=== PATIENT | female | born 1955 | race Caucasian/White ===

== ENCOUNTER → 2018-12-13 | Outpatient (CLI) | payer MEDICARE ==
--- NOTE | 2018-12-13 12:34 | PN ---
PROGRESS NOTE A 63-year-old female patient coming in for a compliancy check regarding obstructive sleep apnea. The patient presented with weight gain and hypersomnolence and sleepiness. The sleep study was conducted and the patient was found to have a mild JARVIS with an AHI of 9. She had excessive periodic limb movements, yet her arousal index along with a periodic limb movement was low. The patient was feeling sleepy and tired and for that reason, she underwent a CPAP titration and she was started on a CPAP pressure of 9 cm of water. Note that the overall sleeps efficiency remained unchanged while on CPAP therapy in order of 73%. At the same time, the patient was able to have all sleep stages including REM and delta wave sleep. During the titration, the patient encountered excessive periodic limb movements and increases arousal index. On today's evaluation, the patient reports at the clinic that she is not benefitting from the treatment. She has tried to become compliant with the CPAP unit over the past 3 months. Nevertheless she was not able to see the benefit that she was expecting. I looked at the compliance data. While on the CPAP unit, the patient has elevated obstructive sleep apnea. Her AHI is dropped down to 1. Nevertheless, even on those days, the patient has not seen any major improvement in her sleep quality nor she has any in improvement in her daytime symptoms. She claims that the treatment itself has not been effective for her. Note that she has some limited symptoms of restless legs syndrome. She has been taking Celexa 20 mg in the morning for history of chronic depression. She is known to have COPD and she was treated for an exacerbation recently through our office. Over the years she has required steroids for systemic for a COPD exacerbation and based on that, she has gained significant amount of weight in the order of 40 pounds. REVIEW OF SYSTEMS: A 12-point review of system was done. Positive findings are all mentioned above in the history of present illness. PHYSICAL EXAMINATION: BP is 150/73, pulse 93, respirations 16, temperature 98.9, weight is 262. An Ishpeming score of 8, saturation 94% on room air. GENERAL APPEARANCE: Obese, calm, comfortable. HEAD: Atraumatic, normocephalic. NECK: Supple. Mallampati class IV. There is no goiter or neck masses. LUNGS: Clear to auscultation. HEART: Sounds regular rate and rhythm. Normal S1, S2. No murmurs. ABDOMEN: Soft, nontender. No organomegaly. EXTREMITIES: No edema. No cyanosis or clubbing. IMPRESSION: 1. There is obstructive sleep apnea with an apnea-hypopnea index of 9.1. The patient was treated with CPAP with a pressure of 9. Despite her treatment, she has not seen any major clinical improvement in her daytime symptoms nor in her sleep quality. 2. Excessive periodic limb movements. Would sleep fragmentation based on the CPAP titration study with a PLMS index of 42. 3. Diminished sleep efficiency of 73%. 4. Delayed sleep onset. 5. Obesity, BMI of 36. 6. Chronic obstructive pulmonary disease. 7. Depression on Celexa. PLAN: Obviously, the patient has mild obstructive sleep apnea and the CPAP treatment failed to give her any major symptomatic benefit in terms of her daytime symptoms and failed also to improve her sleep quality in general. Will encourage to afford this patient to lose weight and will discontinue the CPAP therapy for now. Meanwhile, I think it is worthwhile to treat this patient with Requip 1 mg at bedtime to improve her periodic limb movements. It is possible that the treating the periodic limb movements may drop her sleep fragmentation and make this patient much more alert and awake during the day. This will be given a trial basis and tried on 30 days of Requip will be given a dose of 1 mg at bedtime. She can still take her Celexa. Avoid caffeinated beverages late at night time. Sleep hygiene measures need to be implemented. Will continue to follow. RAFAL / GODWINN: [id number] /
== END | disposition home or self-care (01) ==
LOC: SLEEP 11:05
PROVIDERS: ATTEND Internal Medicine Critical Care Medicine
DX: G47.33 Obstructive sleep apnea (adult) (pediatric) (principal); G47.61 Periodic limb movement disorder; G25.81 Restless legs syndrome; F32.9 Major depressive disorder, single episode, unspecified; E66.9 Obesity, unspecified; J44.9 Chronic obstructive pulmonary disease, unspecified; Z68.36 Body mass index [BMI] 36.0-36.9, adult; Z99.89 Dependence on other enabling machines and devices; Z79.899 Other long term (current) drug therapy

== ENCOUNTER 2023-03-10 21:50 | Observation (INO) | payer MEDICARE ==
[2023-03-10] MEDS ORDERED: DEXAMETHASONE SOD PHOSPHATE 10 MG/ML 1 ML VIAL IVP STA (22:02)
[2023-03-10] MEDS ORDERED: ALBUTEROL NEBULIZED 2.5 MG/3 ML INHALATION STA (22:02)
[2023-03-10] MEDS ORDERED: IPRATROPIUM 0.5 MG/2.5 ML NEBU INHALATION STA (22:02)
[2023-03-10 22:10] LABS: Basophils % (A) 0 %; Eosinophils # (A) 0.3 k/uL (0-0.7); Eosinophils % (A) 2 %; HCT 43.3 % (34.0-46.0); HGB 13.8 gm/dL (11.4-16.0); Hypochromasia Slight; Lymphocytes # (A) 1.5 k/uL (1.0-4.8); Lymphocytes % (A) 10 %; MCH 26.7 pg (25.0-35.0); MCHC 31.8 g/dL (31.0-37.0); MCV 83.9 fL (80.0-100.0); Mean Platelet Volume 6.9; Monocytes # (A) 0.5 k/uL (0-1.0); Monocytes % (A) 4 %; Neutrophils % (A) 83 %; Platelet Count 326 k/uL (150-450); RBC 5.16 m/uL (3.80-5.40); RDW 14.8 % (11.5-15.5); WBC 14.4 k/uL (3.8-10.6)
[2023-03-10] MEDS: MAGNESIUM SULFATE-D5W PMX 1 GM in DEXTROSE/WATER 1 100ML.BAG IVPB SCH ×2 (22:10→23:20)
[2023-03-10 22:22] LABS: ALT 22 U/L (4-34); AST 20 U/L (14-36); African American GFR (CKD) >90 (>60 ml/min/1.73 sqM); Albumin 3.8 g/dL (3.5-5.0); Alkaline Phosphatase 163 U/L (38-126); Anion Gap 7 mmol/L; Blood Urea Nitrogen 17 mg/dL (7-17); Calcium 9.2 mg/dL (8.4-10.2); Carbon Dioxide 37 mmol/L (22-30); Chloride 94 mmol/L (98-107); Glucose 114 mg/dL (74-99); Lipase 76 U/L (23-300); Magnesium 1.5 mg/dL (1.6-2.3); Non-African American GFR(CKD) >90 (>60 ml/min/1.73 sqM); Potassium 3.4 mmol/L (3.5-5.1); Sodium 138 mmol/L (137-145); Total Bilirubin 0.4 mg/dL (0.2-1.3); Total Protein 6.3 g/dL (6.3-8.2)
--- NOTE | 2023-03-11 00:04 | XR ---
EXAMINATION TYPE: XR chest 1V portable DATE OF EXAM: 03/10/2023 11:47 PM COMPARISON: Chest radiographs from 09/22/2021 TECHNIQUE: XR chest 1V portable Portable AP radiograph of the chest. CLINICAL INDICATION:Female, 67 years old with history of CP; FINDINGS: Lungs/Pleura: There is no evidence of pleural effusion, focal consolidation, or pneumothorax. Pulmonary vascularity: Unremarkable. Heart/mediastinum: Cardiomediastinal silhouette is unremarkable. Musculoskeletal: No acute osseous pathology. IMPRESSION: No acute cardiopulmonary disease/process.
[2023-03-11] MEDS ORDERED: NALOXONE 0.4 MG/ML 1 ML VIAL IV PRN (01:46)
[2023-03-11] MEDS ORDERED: IPRATROPIUM-ALBUTEROL 3 ML NEB INHALATION PRN (01:47)
--- NOTE | 2023-03-11 01:56 | ED ---
General Adult HPI - General Chief complaint: Shortness of Breath Stated complaint: SOB Time Seen by Provider: 03/10/23 21:52 Source: patient, EMS Mode of arrival: EMS Limitations: no limitations - History of Present Illness Initial comments: This is a 67-year-old female with a past medical history including COPD, hypertension and diabetes presents emergency department via EMS. The patient reported that her shortness of breath is increased and worsened over the last several hours consistent with her previous COPD exacerbations. The patient did state that changes in weather and humidity and heat increase her COPD and worsening. The patient did state that she rarely goes outside because of this. The patient did state that she is on 2 L of nasal cannula at home but stated she needed more oxygen tonight. The patient was given a DuoNeb by EMS on arrival and stated that this did help her symptoms but was still having shortness of breath my evaluation. The patient denied any fevers, chills as well as any nausea and vomiting. - Related Data Home Medications Medication Instructions Recorded Confirmed Albuterol Sulfate [Ventolin HFA] 2 puff INHALATION RT-Q6H PRN 04/02/14 09/28/16 LORazepam [Ativan] 0.5 mg PO TID PRN 04/02/14 09/28/16 Mometasone/Formoterol [Dulera 200 2 puff INHALATION RT-BID 04/02/14 09/28/16 Mcg-5 Mcg Inhaler] Omeprazole [PriLOSEC] 20 mg PO BID 04/02/14 09/28/16 Ibuprofen [Motrin] 800 mg PO BID PRN 09/27/16 09/28/16 Vitamin B Complex 1 cap PO DAILY 09/27/16 09/27/16 Previous Rx's Medication Instructions Recorded Albuterol Inhaler [Ventolin Hfa 2 puff INHALATION RT-QID PRN #0 10/01/16 Inhaler] puff Citalopram Hydrobromide [CeleXA] 20 mg PO DAILY #30 tab 10/01/16 Ibuprofen [Motrin] 800 mg PO BID tab 10/01/16 LORazepam [Ativan] 1 mg PO TID PRN #30 tab 10/01/16 Nicotine 14Mg/24Hr Patch [Habitrol] 1 patch TRANSDERM DAILY #30 patch 10/01/16 Pantoprazole [Protonix] 40 mg PO AC-BID tablet. 10/01/16 traMADol HCl [Ultram] 50 mg PO BID PRN #0 tab 10/01/16 traZODone HCL [Desyrel] 50 mg PO HS #30 tab 10/01/16 Allergies Allergy/AdvReac Type Severity Reaction Status Date / Time No Known Allergies Allergy Verified 09/28/16 00:20 Review of Systems ROS Statement: Those systems with pertinent positive or pertinent negative responses have been documented in the HPI. ROS Other: All systems not noted in ROS Statement are negative. Past Medical History Past Medical History: Heart Failure, COPD, GERD/Reflux, Hypertension, Osteoarthritis (OA), Pulmonary Embolus (PE) Additional Past Medical History / Comment(s): just finished antibiotic for rece nt UTI History of Any Multi-Drug Resistant Organisms: None Reported Past Surgical History: Cholecystectomy, Joint Replacement Past Anesthesia/Blood Transfusion Reactions: No Reported Reaction Past Psychological History: Anxiety Smoking Status: Current some day smoker Past Alcohol Use History: Rare Past Drug Use History: None Reported General Exam Limitations: no limitations General appearance: alert, in no apparent distress, obese Head exam: Present: atraumatic, normocephalic, normal inspection Eye exam: Present: normal appearance, PERRL Pupils: Present: normal accommodation ENT exam: Present: normal exam, normal oropharynx, mucous membranes moist Neck exam: Present: normal inspection, full ROM Respiratory exam: Present: wheezes (Expiratory wheezes heard in the bilateral lung coronado.). Absent: normal lung sounds bilaterally, respiratory distress Cardiovascular Exam: Present: normal rhythm, tachycardia GI/Abdominal exam: Present: soft, normal bowel sounds Extremities exam: Present: normal inspection, full ROM Back exam: Present: normal inspection, full ROM Neurological exam: Present: alert, oriented X3, CN II-XII intact Psychiatric exam: Present: normal affect, normal mood Skin exam: Present: warm, dry Course Vital Signs 03/10/23 03/10/23 03/10/23 21:53 22:02 22:35 Temperature 98.2 F Pulse Rate 114 H 100 Respiratory 30 H Rate Blood Pressure 120/78 O2 Sat by Pulse 94 L 95 Oximetry 03/10/23 03/10/23 03/10/23 22:55 23:15 23:30 Temperature Pulse Rate 108 H 111 H 114 H Respiratory Rate Blood Pressure O2 Sat by Pulse Oximetry 03/11/23 00:00 Temperature Pulse Rate 120 H Respiratory 18 Rate Blood Pressure 114/78 O2 Sat by Pulse 95 Oximetry EKG Findings - EKG Comments: EKG Findings:: An EKG was obtained and was interpreted by myself showing a rate of 113, SC interval 104, QRS duration of 81 and QTC of 379. This EKG showed a sinus tachycardia with no ST segment elevation or depression noted. There was noted pattern consistent with pulmonary disease. Medical Decision Making - Medical Decision Making Was pt. sent in by a medical professional or institution (, [facility], [facility], urgent care, hospital, or senior living...) When possible be specific @ -No Did you speak to anyone other than the patient for history (EMS, parent, family, police, friend...)? What history was obtained from this source @ -No Did you review nursing and triage notes (agree or disagree)? Why? @ -I reviewed and agree with nursing and triage notes Were old charts reviewed (outside hosp., previous admission, EMS record, old EKG, old radiological studies, urgent care reports/EKG's, senior living records)? Report findings @ -No old charts were reviewed Differential Diagnosis (chest pain, altered mental status, abdominal pain women, abdominal pain men, vaginal bleeding, weakness, fever, dyspnea, syncope, headache, dizziness, GI bleed, back pain, seizure, CVA, palpatations, mental health)? @ -COPD exacerbation, pneumonia, ACS EKG interpreted by me (3pts min.). @ -As above X-rays interpreted by me (1pt min.). @ -Chest x-ray was obtained and was interpreted by myself showing no acute process. CT interpreted by me (1pt min.). @ -None done U/S interpreted by me (1pt. min.). @ -None done What testing was considered but not performed or refused? (CT, X-rays, U/S, labs)? Why? @ -None What meds were considered but not given or refused? Why? @ -None Did you discuss the management of the patient with other professionals (professionals i.e. [facility] Uriostegui, [facility], lab, RT, psych nurse, social media campaign manager, division leader, teacher, plain clothes police officer, counter caser)? Give summary @ -Yes, patient's primary care physician was contacted regarding admission Was smoking cessation discussed for >3mins.? @ -Yes Was critical care preformed (if so, how long)? @ -No Were there social determinants of health that impacted care today? How? (Homelessness, low income, unemployed, alcoholism, drug addiction, transportation, low edu. Level, literacy, decrease access to med. care, long term, rehab)? @ -No Was there de-escalation of care discussed even if they declined (Discuss DNR or withdrawal of care, Hospice)? DNR status @ -No What co-morbidities impacted this encounter? (DM, HTN, Smoking, COPD, CAD, Cancer, CVA, ARF, Chemo, Hep., AIDS, mental health diagnosis, sleep apnea, morbid obesity)? @ -COPD, hypertension, morbid obesity Was patient admitted / discharged? Hospital course, mention meds given and route, prescriptions, significant lab abnormalities, going to OR and other pertinent info. @ -The patient was seen and evaluated in the emergency department. Physical exam, the patient was resting in bed with minimal shortness of breath. The patient did state that the medication given to her by EMS did help her subhash athing. The patient on evaluation was tachycardic however did not have any tachypnea. The patient was on 4 L of nasal cannula oxygen. Due to the COPD exacerbation, and expiratory wheezes heard on auscultation, the patient did receive a breathing treatment of albuterol and ipratropium as well as Decadron and magnesium. On reevaluation, the patient stated that her breathing was improved but she still had wheezing noted. Due to this in the setting of the patient's severe COPD, the patient will be placed observation for continued breathing treatments and observation and management. The patient was agreeable to this and all of her questions were answered. The patient was placed observation in stable condition. Undiagnosed new problem with uncertain prognosis? @ -No Drug Therapy requiring intensive monitoring for toxicity (Heparin, Nitro, Insulin, Cardizem)? @ -No Were any procedures done? @ -No Diagnosis/symptom? @ -COPD exacerbation Acute, or Chronic, or Acute on Chronic? @ -Acute Uncomplicated (without systemic symptoms) or Complicated (systemic symptoms)? @ -Complicated Side effects of treatment? @ -No Exacerbation, Progression, or Severe Exacerbation? @ -Exacerbation Poses a threat to life or bodily function? How? (Chest pain, [place], [place], pneumonia, PE, COPD, DKA, ARF, appy, cholecystitis, CVA, Diverticulitis, Homicidal, Suicidal, threat to staff... and all critical care pts) @ -Yes, continued exacerbation can lead to hypoxia, permanent damage and possible . - Lab Data Result diagrams: 03/10/23 22:01 03/10/23 22:01 Lab Results 03/10/23 03/10/23 03/10/23 Range/Units 22:01 22:01 22:01 WBC 14.4 H (3.8-10.6) k/uL RBC 5.16 (3.80-5.40) m/uL Hgb 13.8 (11.4-16.0) gm/dL Hct 43.3 (34.0-46.0) % MCV 83.9 (80.0-100.0) fL MCH 26.7 (25.0-35.0) pg MCHC 31.8 (31.0-37.0) g/dL RDW 14.8 (11.5-15.5) % Plt Count 326 (150-450) k/uL MPV 6.9 Neutrophils % 83 % Lymphocytes % 10 % Monocytes % 4 % Eosinophils % 2 % Basophils % 0 % Neutrophils # 12.0 H (1.3-7.7) k/uL Lymphocytes # 1.5 (1.0-4.8) k/uL Monocytes # 0.5 (0-1.0) k/uL Eosinophils # 0.3 (0-0.7) k/uL Basophils # 0.0 (0-0.2) k/uL Hypochromasia Slight Sodium 138 (137-145) mmol/L Potassium 3.4 L (3.5-5.1) mmol/L Chloride 94 L (98-107) mmol/L Carbon Dioxide 37 H (22-30) mmol/L Anion Gap 7 mmol/L BUN 17 (7-17) mg/dL Creatinine 0.53 (0.52-1.04) mg/dL Est GFR (CKD-EPI)AfAm >90 (>60 ml/min/1.73 sqM) Est GFR (CKD-EPI)NonAf >90 (>60 ml/min/1.73 sqM) Glucose 114 H (74-99) mg/dL Calcium 9.2 (8.4-10.2) mg/dL Magnesium 1.5 L (1.6-2.3) mg/dL Total Bilirubin 0.4 (0.2-1.3) mg/dL AST 20 (14-36) U/L ALT 22 (4-34) U/L Alkaline Phosphatase 163 H (38-126) U/L Troponin I <0.012 (0.000-0.034) ng/mL NT-Pro-B Natriuret Pep pg/mL Total Protein 6.3 (6.3-8.2) g/dL Albumin 3.8 (3.5-5.0) g/dL Lipase 76 (23-300) U/L 03/10/23 Range/Units 22:01 WBC (3.8-10.6) k/uL RBC (3.80-5.40) m/uL Hgb (11.4-16.0) gm/dL Hct (34.0-46.0) % MCV (80.0-100.0) fL MCH (25.0-35.0) pg MCHC (31.0-37.0) g/dL RDW (11.5-15.5) % Plt Count (150-450) k/uL MPV Neutrophils % % Lymphocytes % % Monocytes % % Eosinophils % % Basophils % % Neutrophils # (1.3-7.7) k/uL Lymphocytes # (1.0-4.8) k/uL Monocytes # (0-1.0) k/uL Eosinophils # (0-0.7) k/uL Basophils # (0-0.2) k/uL Hypochromasia Sodium (137-145) mmol/L Potassium (3.5-5.1) mmol/L Chloride (98-107) mmol/L Carbon Dioxide (22-30) mmol/L Anion Gap mmol/L BUN (7-17) mg/dL Creatinine (0.52-1.04) mg/dL Est GFR (CKD-EPI)AfAm (>60 ml/min/1.73 sqM) Est GFR (CKD-EPI)NonAf (>60 ml/min/1.73 sqM) Glucose (74-99) mg/dL Calcium (8.4-10.2) mg/dL Magnesium (1.6-2.3) mg/dL Total Bilirubin (0.2-1.3) mg/dL AST (14-36) U/L ALT (4-34) U/L Alkaline Phosphatase (38-126) U/L Troponin I (0.000-0.034) ng/mL NT-Pro-B Natriuret Pep 86 pg/mL Total Protein (6.3-8.2) g/dL Albumin (3.5-5.0) g/dL Lipase (23-300) U/L Disposition Clinical Impression: COPD exacerbation Disposition: ADMITTED IP TO THIS HOSP Condition: Stable Is patient prescribed a controlled substance at d/c from ED?: No Referrals: Devante Loja DO [Primary Care Provider] - 1-2 days Time of Disposition: 23:30 Decision to Admit Reason: Admit from EC Decision Date: 03/10/23 Decision Time: 23:30
[2023-03-11] MEDS ORDERED: ALBUTEROL NEBULIZED 2.5 MG/3 ML INHALATION PRN (10:01)
[2023-03-11] MEDS ORDERED: ALBUTEROL HFA INHALER INHALATION PRN (10:01)
[2023-03-11] MEDS ORDERED: predniSONE 5 MG TAB PO SCH (10:15)
[2023-03-11 11:18] LABS: HCT 46.3 % (34.0-46.0); HGB 14.1 gm/dL (11.4-16.0); Hypochromasia Moderate; MCH 26.4 pg (25.0-35.0); MCHC 30.5 g/dL (31.0-37.0); MCV 86.5 fL (80.0-100.0); Mean Platelet Volume 7.1; Platelet Count 384 k/uL (150-450); RBC 5.36 m/uL (3.80-5.40); RDW 14.7 % (11.5-15.5); WBC 15.1 k/uL (3.8-10.6)
[2023-03-11 11:20] LABS: ABG Base Excess 12.5 mmol/L; ABG HCO3 38 mmol/L (21-25); ABG Oxygen Saturation 94.1 % (94-97); ABG PCO2 63 mmHg (35-45); ABG PH 7.39 (7.35-7.45); ABG PO2 69 mmHg (83-108); ABG TCO2 40 mmol/L (19-24); Allen Test Performed? Yes
[2023-03-11] MEDS: PANTOPRAZOLE 40 MG TABLET PO SCH ×2 (11:20→16:48)
[2023-03-11] MEDS: MELOXICAM 7.5 MG TAB PO SCH (11:20)
[2023-03-11] MEDS: FUROSEMIDE 20 MG TAB PO SCH ×2 (11:20→21:11)
[2023-03-11] MEDS: CITALOPRAM HYDROBROMIDE 20 MG TAB PO SCH (11:20)
[2023-03-11] MEDS: APIXABAN 5 MG TAB PO SCH ×2 (11:21→21:11)
[2023-03-11] MEDS: METOPROLOL SUCCINATE (ER) 50 MG TAB.ER.24H PO SCH (11:21)
[2023-03-11] MEDS: methylPREDNISolone SOD SUCCI 40 MG/ML 1 ML VIAL IV SCH ×3 (11:21→23:47)
[2023-03-11] MEDS: IPRATROPIUM-ALBUTEROL 3 ML NEB INHALATION SCH ×3 (11:34→19:56)
[2023-03-11 11:37] LABS: African American GFR (CKD) >90 (>60 ml/min/1.73 sqM); Anion Gap 8 mmol/L; Blood Urea Nitrogen 17 mg/dL (7-17); Calcium 9.3 mg/dL (8.4-10.2); Carbon Dioxide 38 mmol/L (22-30); Chloride 94 mmol/L (98-107); Glucose 127 mg/dL (74-99); Non-African American GFR(CKD) >90 (>60 ml/min/1.73 sqM); Sodium 140 mmol/L (137-145)
[2023-03-11 11:54] LABS: Potassium 4.8 mmol/L (3.5-5.1)
[2023-03-11] MEDS: DOXYCYCLINE 100 MG CAP PO SCH ×2 (11:54→21:11)
[2023-03-11 11:55] LABS: Glucose,Whole Blood 121 mg/dL (70-110)
[2023-03-11] MEDS: INSULIN ASPART (NovoLOG) 100 UNIT/ML VIAL SQ SCH ×3 (11:56→20:40)
[2023-03-11] MEDS ORDERED: IPRATROPIUM 0.5 MG/2.5 ML NEBU INHALATION SCH (12:00)
--- NOTE | 2023-03-11 15:23 | P.CNPUL ---
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 The patient is essentially sedentary. She smokes about 8 to consider some daily basis. She presented to the hospital because of worsening shortness of breath and this has progressed over the past several days. She had increased cough congestion chest tightness and wheezing. She also was becoming more lethargic a some family members. The patient is also known to have severe obstructive sleep apnea with an AHI of 61. She was offered a CPAP machine at a pressure of 10 cm of water. She has a full facemask. She has been able to use the machine and the patient has not been essentially compliant to treatment. Based on worsening shortness of breath, the patient came into the emergency department. The patient placed on 3 L of oxygen by nasal cannula. Started on bronchodilators. Noted the patient uses Trelegy Ellipta and prednisone 5 mg on a daily basis. The white cell count of 15.1 with a hemoglobin of 14.1 and a platelet count of 384. BUN is at 17 with a creatinine of 0.4 and sodium levels of 140. Troponins are negative. ProBNP level is at 86. No chest pain. No pleurisy. No hemoptysis. No increased edema in lower extremities. She is arousable and she is communicating his moldable 4 extremities without any limitation. She has chronic back pain. She has been sedentary. She has a series patient is still her lower back. She also has previous history of pulmonary embolism and the patient remains on anticoagulation with Eliquis 5 mg by mouth twice a day. Review of Systems Constitutional: Reports daytime sleepiness, Reports fatigue, Reports lethargy Eyes: denies as per HPI, denies blurred vision, denies bulging eye, denies decreased vision, denies diplopia, denies discharge, denies dry eye, denies irritation, denies itching, denies pain, denies photophobia, denies loss of peripheral vision, denies loss of vision, denies tunnel vision/blind spots Ears: deny: decreased hearing, ear discharge, earache, tinnitus Ears, nose, mouth and throat: Reports as per HPI Breasts: absent: as per HPI, change in shape, gynecomastia, masses, nipple discharge, pain, skin changes, swelling Cardiovascular: Reports decreased exercise tolerance, Reports dyspnea on exertion Respiratory: Reports congestion, Reports cough, Reports dyspnea, Reports home oxygen (2 liters/min), Reports wheezing Genitourinary: Reports as per HPI Menstruation: Reports as per HPI Musculoskeletal: Reports as per HPI Musculoskeletal: absent: ankle pain, ankle stiffness, ankle swelling Integumentary: Reports as per HPI Neurological: Reports as per HPI, Reports balance difficulties, Reports gait dysfunction Psychiatric: Reports sleep disturbances Endocrine: Reports as per HPI Hematologic/Lymphatic: Reports as per HPI Allergic/Immunologic: Reports as per HPI Past Medical History Past Medical History: Heart Failure, COPD, GERD/Reflux, Hypertension, Osteoarthritis (OA), Pulmonary Embolus (PE), Sleep Apnea/CPAP/BIPAP (AHI of 61 pn CPAP of 10) Additional Past Medical History / Comment(s): just finished antibiotic for recent UTI History of Any Multi-Drug Resistant Organisms: None Reported Past Surgical History: Cholecystectomy, Joint Replacement Additional Past Surgical History / Comment(s): Bilateral knee replacement Past Anesthesia/Blood Transfusion Reactions: No Reported Reaction Past Psychological History: Anxiety Smoking Status: Current every day smoker Past Alcohol Use History: Rare Past Drug Use History: None Reported Medications and Allergies Home Medications Medication Instructions Recorded Confirmed Type Albuterol Sulfate [Ventolin HFA] 2 puff INHALATION RT-Q6H PRN 04/02/14 03/11/23 History Omeprazole [PriLOSEC] 20 mg PO BID 04/02/14 03/11/23 History Albuterol Inhaler [Ventolin Hfa 2 puff INHALATION RT-QID PRN #0 10/01/16 03/11/23 Rx Inhaler] puff Citalopram Hydrobromide [CeleXA] 20 mg PO DAILY #30 tab 10/01/16 03/11/23 Rx Apixaban [Eliquis] 5 mg PO BID 03/11/23 03/11/23 History Celecoxib [CeleBREX] 100 mg PO DAILY 03/11/23 03/11/23 History Cyclobenzaprine [Flexeril] 10 mg PO TID PRN 03/11/23 03/11/23 History Fluticasone/Umeclidin/Vilanter 1 puff INHALATION RT-DAILY 03/11/23 03/11/23 History [Trelegy Ellipta 100-62.5-25] Furosemide [Lasix] 20 mg PO BID 03/11/23 03/11/23 History Metoprolol Succinate (ER) [Toprol 50 mg PO DAILY 03/11/23 03/11/23 History Xl] predniSONE 5 mg PO DAILY 03/11/23 03/11/23 History Allergies Allergy/AdvReac Type Severity Reaction Status Date / Time hydrocodone AdvReac Nightmares Verified 03/11/23 08:15 Physical Exam Vitals: Vital Signs Temp Pulse Pulse Resp BP BP Pulse Ox 03/11/23 08:00 97.9 F 110 H 20 109/55 95 03/11/23 07:59 93 L 03/11/23 06:44 97.9 F 118 H 16 144/89 93 L 03/11/23 02:40 98.3 F 120 H 16 118/80 95 03/11/23 02:00 118 H 26 H 100/61 92 L 03/11/23 00:00 120 H 18 114/78 95 03/10/23 23:30 114 H 03/10/23 23:15 111 H 03/10/23 22:55 108 H 03/10/23 22:35 100 03/10/23 22:02 95 03/10/23 21:53 98.2 F 114 H 30 H 120/78 94 L Intake and Output 03/10/23 03/11/23 03/11/23 22:59 06:59 14:59 Intake Total 240 Balance 240 Intake: Oral 240 Other: Voiding Method Toilet Toilet # Voids 0 Weight 119.295 kg 119.295 kg Morbidly obese, calm and comfortable, body mass index is 41.2, the patient has typical cushingoid features Head exam was generally normal. There was no scleral icterus or corneal arcus. Mucous membranes were moist. Neck was supple and without jugular venous distension, thyromegaly, or carotid bruits. Carotids were easily palpable bilaterally. There was no adenopathy. The patient is a Mallampati class IV with significant crowding of the posterior oropharynx Cardiac exam revealed the PMI to be normally situated and sized. The rhythm was regular and no extrasystoles were noted during several minutes of auscultation. The first and second heart sounds were normal and physiologic splitting of the second heart sound was noted. There were no murmurs, rubs, clicks, or gallops. Lungs sounds are diminished bilaterally and the patient has diffuse extremity wheezes throughout the lung coronado Abdominal exam revealed normal bowel sounds. The abdomen was soft, non-tender, and without masses, organomegaly, or appreciable enlargement of the abdominal aorta. Obese and the patient CANNOT be accurately palpated. Examination of the extremities revealed easily palpable radial, femoral and pedal pulses. There was no cyanosis, clubbing or edema. Examination of the skin revealed no evidence of significant rashes, suspicious appearing nevi or other concerning lesions. Neurologically, the patient is awake and alert and the patient does not have any focal neurological deficit. Cranial nerves are essentially intact. Results - Laboratory Findings CBC and BMP: 03/11/23 10:57 03/11/23 10:57 ABG WBC 14.4 k/uL (3.8-10.6) H 03/10/23 22: RBC 5.16 m/uL (3.80-5.40) 03/10/23 22: Hgb 13.8 gm/dL (11.4-16.0) 03/10/23 22: Hct 43.3 % (34.0-46.0) 03/10/23 22: MCV 83.9 fL (80.0-100.0) 03/10/23 22: MCH 26.7 pg (25.0-35.0) 03/10/23 22: MCHC 31.8 g/dL (31.0-37.0) 03/10/23 22: RDW 14.8 % (11.5-15.5) 03/10/23 22: Plt Count 326 k/uL (150-450) 03/10/23 22:01 MPV 6.9 03/10/23 22:01 Neutrophils % 83 % 03/10/23 22:01 Lymphocytes % 10 % 03/10/23 22:01 Monocytes % 4 % 03/10/23 22:01 Eosinophils % 2 % 03/10/23 22: Basophils % 0 % 03/10/23 22:01 Neutrophils # 12.0 k/uL (1.3-7.7) H 03/10/23 22:01 Lymphocytes # 1.5 k/uL (1.0-4.8) 03/10/23 22: Monocytes # 0.5 k/uL (0-1.0) 03/10/23 22: Eosinophils # 0.3 k/uL (0-0.7) 03/10/23 22: Basophils # 0.0 k/uL (0-0.2) 03/10/23 22:01 Hypochromasia Slight 03/10/23 22:01 Sodium 138 mmol/L (137-145) 03/10/23 22:01 Potassium 3.4 mmol/L (3.5-5.1) L 03/10/23 22: Chloride 94 mmol/L (98-107) L 03/10/23 22:01 Carbon Dioxide 37 mmol/L (22-30) H 03/10/23 22:01 Anion Gap 7 mmol/L 03/10/23 22: BUN 17 mg/dL (7-17) 03/10/23 22: Creatinine 0.53 mg/dL (0.52-1.04) 03/10/23 22:01 Est GFR (CKD-EPI)AfAm >90 (>60 ml/min/1.73 sqM) 03/10/23 22:01 Est GFR (CKD-EPI)NonAf >90 (>60 ml/min/1.73 sqM) 03/10/23 22: Glucose 114 mg/dL (74-99) H 03/10/23 22:01 Calcium 9.2 mg/dL (8.4-10.2) 03/10/23 22: Magnesium 1.5 mg/dL (1.6-2.3) L 03/10/23 22: Total Bilirubin 0.4 mg/dL (0.2-1.3) 03/10/23 22: AST 20 U/L (14-36) 03/10/23 22: ALT 22 U/L (4-34) 03/10/23 22:01 Alkaline Phosphatase 163 U/L (38-126) H 03/10/23 22: Troponin I <0.012 ng/mL (0.000-0.034) 03/10/23 22: NT-Pro-B Natriuret Pep 86 pg/mL 03/10/23 22: Total Protein 6.3 g/dL (6.3-8.2) 03/10/23 22: Albumin 3.8 g/dL (3.5-5.0) 03/10/23 22:01 Lipase 76 U/L (23-300) 03/10/23 22:01 Abnormal lab findings: Abnormal Labs 03/10/23 03/10/23 22:01 22:01 WBC 14.4 H Neutrophils # 12.0 H Potassium 3.4 L Chloride 94 L Carbon Dioxide 37 H Glucose 114 H Magnesium 1.5 L Alkaline Phosphatase 163 H - Diagnostic Findings Chest x-ray: image reviewed Assessment and Plan Plan: Acute COPD exacerbation with secondary shortness of breath and some altered mentation probably related to some underlying CO2 narcosis. Patient is much more awake and alert on today's evaluation. Chest x-ray is not showing any acute pulmonary infiltrate or pneumonia. Nevertheless, the patient is actively bronchospastic and wheezy. Severe oxygen and steroid-dependent COPD with an FEV1 of less than 20% and the patient has limited on Trelegy Ellipta and prednisone at a dose of 5 mg on a daily basis, outpatient Severe obstructive sleep apnea, AHI of 61 and the patient has been treated with a CPAP pressure of 10 cm of water, suboptimal compliancy Obesity Chronic back pain Immobility and the patient has been essentially sedentary Previous history of pulmonary embolism maintained on long-term anticoagulation with Eliquis History of diabetes mellitus type 2 with previous history of steroid-induced hyperglycemia Degenerative arthritis Hypertension History of smoking and the patient admits to smoke about 8 cigarettes on a daily basis Plan Titrate oxygen flow to maintain a saturation above 90%. Currently the patient i s on 3 L nasal cannula and she is on 2 L at home We'll start the patient on DuoNeb nebulized treatments [id number] We'll start the patient Symbicort We'll give the patient IV Solu-Medrol 40 mg every 6 hours We'll cover the patient with doxycycline Check a pro-calcitonin level Subcu insulin for blood sugar control We'll try to restart CPAP therapy on this patient Stop lower prednisone for now Resume all medications Obtain a blood gas to evaluate for CO2 narcosis and this will be done on 3 L nasal cannula Patient is significant debilitated and she may benefit from placement We'll continue to follow
[2023-03-11 16:19] LABS: Glucose,Whole Blood 181 mg/dL (70-110)
[2023-03-11] MEDS: CYCLOBENZAPRINE 10 MG TAB PO PRN (17:38)
[2023-03-11] MEDS: SYMBICORT 80-4.5 MCG INHALER INHALATION SCH (19:56)
[2023-03-11 20:27] LABS: Glucose,Whole Blood 121 mg/dL (70-110)
--- NOTE | 2023-03-11 22:35 | P.HPIM ---
History of Present Illness H&P Date: 03/11/23 This is a 67-year-old female with a past medical history including COPD, hypertension and diabetes. The patient reported that her shortness of breath is increased and worsened over the last several hours consistent with her previous COPD exacerbations. The patient did state that changes in weather and humidity and heat increase her COPD and worsening. The patient did state that she rarely goes outside because of this. The patient did state that she is on 2 L of nasal cannula at home but stated she needed more oxygen tonight. The patient was given a DuoNeb by EMS on arrival and stated that this did help her symptoms but was still having shortness of breath my evaluation. The patient denied any fevers, chills as well as any nausea and vomiting. Review of Systems GENERAL: Patient denies fever. Denies chills. EYES: Denies blurred vision. Denies vision changes. Denies eye pain. EARS, NOSE, MOUTH, & THROAT: Denies headache. Denies sore throat. Denies ear pain. RESPIRATORY: Patient admits to cough wheezing congestion shortness of breath. CARDIOVASCULAR: Denies chest pain or pressure. Denies palpitations. Denies arrhythmias. GASTROINTESTINAL: Denies abdominal pain. Denies diarrhea. Denies constipation. Denies nausea. Denies vomiting. Denies heartburn. Denies blood in the stool. GENITOURINARY: Denies urinary frequency. Denies burning. Denies dysuria. Denies cloudy urine. Denies blood in the urine. MUSCULOSKELETAL: Midst to dental degenerative disc disease and spinal injections INTEGUMENTARY: Denies pruitis. Denies rash. PSYCHIATRIC: Denies suicidal or homicial ideations. ENDOCRINE: Denies weight change. Denies polydipsia. Denies polyuria. HEMATOLOGIC: Denies bleeding disorders. Past Medical History Past Medical History: Heart Failure, COPD, GERD/Reflux, Hypertension, Osteoa rthritis (OA), Pulmonary Embolus (PE), Sleep Apnea/CPAP/BIPAP (AHI of 61 pn CPAP of 10) Additional Past Medical History / Comment(s): just finished antibiotic for recent UTI History of Any Multi-Drug Resistant Organisms: None Reported Past Surgical History: Cholecystectomy, Joint Replacement Additional Past Surgical History / Comment(s): Bilateral knee replacement Past Anesthesia/Blood Transfusion Reactions: No Reported Reaction Past Psychological History: Anxiety Smoking Status: Current every day smoker Past Alcohol Use History: Rare Past Drug Use History: None Reported Medications and Allergies Home Medications Medication Instructions Recorded Confirmed Type Albuterol Sulfate [Ventolin HFA] 2 puff INHALATION RT-Q6H PRN 04/02/14 03/11/23 History Omeprazole [PriLOSEC] 20 mg PO BID 04/02/14 03/11/23 History Albuterol Inhaler [Ventolin Hfa 2 puff INHALATION RT-QID PRN #0 10/01/16 03/11/23 Rx Inhaler] puff Citalopram Hydrobromide [CeleXA] 20 mg PO DAILY #30 tab 10/01/16 03/11/23 Rx Apixaban [Eliquis] 5 mg PO BID 03/11/23 03/11/23 History Celecoxib [CeleBREX] 100 mg PO DAILY 03/11/23 03/11/23 History Cyclobenzaprine [Flexeril] 10 mg PO TID PRN 03/11/23 03/11/23 History Fluticasone/Umeclidin/Vilanter 1 puff INHALATION RT-DAILY 03/11/23 03/11/23 History [Trelegy Ellipta 100-62.5-25] Furosemide [Lasix] 20 mg PO BID 03/11/23 03/11/23 History Metoprolol Succinate (ER) [Toprol 50 mg PO DAILY 03/11/23 03/11/23 History Xl] predniSONE 5 mg PO DAILY 03/11/23 03/11/23 History Allergies Allergy/AdvReac Type Severity Reaction Status Date / Time hydrocodone AdvReac Nightmares Verified 03/11/23 08:15 Physical Exam Osteopathic Statement: *. No significant issues noted on an osteopathic structural exam other than those noted in the History and Physical/Consult. Vitals: Vital Signs Temp Pulse Pulse Resp BP BP Pulse Ox 03/11/23 20:10 112 H 03/11/23 20:06 98.2 F 102 H 20 121/75 93 L 03/11/23 20:00 109 H 03/11/23 16:00 98.1 F 90 19 116/67 92 L 03/11/23 15:37 108 H 03/11/23 15:27 100 03/11/23 12:00 98.2 F 106 H 16 136/74 95 03/11/23 11:42 104 H 03/11/23 11:35 100 03/11/23 08:00 97.9 F 110 H 20 109/55 95 03/11/23 07:59 93 L 03/11/23 06:44 97.9 F 118 H 16 144/89 93 L 03/11/23 02:40 98.3 F 120 H 16 118/80 95 03/11/23 02:00 118 H 26 H 100/61 92 L 03/11/23 00:00 120 H 18 114/78 95 03/10/23 23:30 114 H 03/10/23 23:15 111 H 03/10/23 22:55 108 H 03/10/23 22:35 100 Intake and Output 03/11/23 03/11/23 03/11/23 06:59 14:59 22:59 Intake Total 480 540 Output Total 400 Balance 80 540 Intake: Oral 480 540 Output: Urine 400 Other: Voiding Method Toilet Toilet # Voids 0 1 # Bowel Movements 1 Weight 119.295 kg GENERAL: This is a 67-year-old in no apparent distress at the time of examination. Pleasant and cooperative. HEENT: Head is atraumatic, normocephalic. Pupils are equal, round, and reactive to light. Sclerae anicteric. Conjunctivae are clear. Mucus membranes of the mouth are moist. Neck is supple. RESPIRATORY: Decreased breath sounds bilateral with wheezing expiratory inspiratory bilateral CARDIOVASCULAR: irregular rate and rhythm. GASTROINTESTINAL: No distention noted. Abdomen soft and round. Normal active bowel sounds auscultated x 4 quadrants. No pain or tenderness noted upon palpation. INTEGUMENTARY: No cyanosis. No jaundice. No rashes noted. No cellulitis noted. EXTREMITIES: 2+ peripheral pulses. No evidence of peripheral edema. No calf te nderness noted. NEUROLOGIC: Cranial nerves II-XII intact. PSYCHIATRIC: Awake, alert, and oriented X 3. Appropriate affect. Intact judgement and insight. Results CBC & Chem 7: 03/11/23 10:57 03/11/23 10:57 Labs: Abnormal Lab Results - Last 24 Hours (Table) 03/10/23 03/11/23 03/11/23 Range/Units 22:01 10:57 10:57 WBC 15.1 H (3.8-10.6) k/uL Hct 46.3 H (34.0-46.0) % MCHC 30.5 L (31.0-37.0) g/dL ABG pCO2 (35-45) mmHg ABG pO2 (83-108) mmHg ABG HCO3 (21-25) mmol/L ABG Total CO2 (19-24) mmol/L Potassium 3.4 L (3.5-5.1) mmol/L Chloride 94 L 94 L (98-107) mmol/L Carbon Dioxide 37 H 38 H (22-30) mmol/L Creatinine 0.43 L (0.52-1.04) mg/dL Glucose 114 H 127 H (74-99) mg/dL POC Glucose (mg/dL) (70-110) mg/dL Magnesium 1.5 L (1.6-2.3) mg/dL Alkaline Phosphatase 163 H (38-126) U/L 03/11/23 03/11/23 03/11/23 Range/Units 11:07 11:53 16:17 WBC (3.8-10.6) k/uL Hct (34.0-46.0) % MCHC (31.0-37.0) g/dL ABG pCO2 63 H (35-45) mmHg ABG pO2 69 L (83-108) mmHg ABG HCO3 38 H (21-25) mmol/L ABG Total CO2 40 H (19-24) mmol/L Potassium (3.5-5.1) mmol/L Chloride (98-107) mmol/L Carbon Dioxide (22-30) mmol/L Creatinine (0.52-1.04) mg/dL Glucose (74-99) mg/dL POC Glucose (mg/dL) 121 H 181 H (70-110) mg/dL Magnesium (1.6-2.3) mg/dL Alkaline Phosphatase (38-126) U/L 03/11/23 Range/Units 20:25 WBC (3.8-10.6) k/uL Hct (34.0-46.0) % MCHC (31.0-37.0) g/dL ABG pCO2 (35-45) mmHg ABG pO2 (83-108) mmHg ABG HCO3 (21-25) mmol/L ABG Total CO2 (19-24) mmol/L Potassium (3.5-5.1) mmol/L Chloride (98-107) mmol/L Carbon Dioxide (22-30) mmol/L Creatinine (0.52-1.04) mg/dL Glucose (74-99) mg/dL POC Glucose (mg/dL) 121 H (70-110) mg/dL Magnesium (1.6-2.3) mg/dL Alkaline Phosphatase (38-126) U/L Thrombosis Risk Factor Assmnt - Choose All That Apply Any of the Below Risk Factors Present?: Yes Each Factor Represents 1 point: Abnormal pulmonary function (COPD), Obesity (BMI >25) Other Risk Factors: Yes Each Risk Factor Represents 2 Points: Age 61-74 years Each Risk Factor Represents 3 Points: History of DVT/PE Other congenital or acquired thrombophilia - If yes, enter type in comment: No Thrombosis Risk Factor Assessment Total Risk Factor Score: 7 Thrombosis Risk Factor Assessment Level: High Risk Assessment and Plan (1) COPD exacerbation Current Visit: Yes Status: Acute Code(s): J44.1 - CHRONIC OBSTRUCTIVE PULMONARY DISEASE W (ACUTE) EXACERBATION SNOMED Code(s): 654940904 (2) Acute anxiety Current Visit: No Status: Acute Code(s): F41.9 - ANXIETY DISORDER, UNSPECIFIED SNOMED Code(s): 89047874 (3) Depression Current Visit: No Status: Acute Code(s): F32.9 - MAJOR DEPRESSIVE DISORDER, SINGLE EPISODE, UNSPECIFIED SNOMED Code(s): 26820246 (4) History of pulmonary embolism Current Visit: Yes Status: Acute Code(s): Z86.711 - PERSONAL HISTORY OF PULMONARY EMBOLISM SNOMED Code(s): 410166960 (5) Obesity (BMI 30-39.9) Current Visit: Yes Status: Acute Code(s): E66.9 - OBESITY, UNSPECIFIED SNOMED Code(s): 792515477 Plan: Plan is to admit patient with consultations by pulmonary we'll place her on oxygen updrafts and steroids IV dissipate 24-48 hour turnaround for this exacerbation Time with Patient: Greater than 30
[2023-03-12] MEDS: CYCLOBENZAPRINE 10 MG TAB PO PRN ×2 (02:48→18:42)
[2023-03-12 06:02] LABS: Glucose,Whole Blood 127 mg/dL (70-110)
[2023-03-12] MEDS: INSULIN ASPART (NovoLOG) 100 UNIT/ML VIAL SQ SCH ×4 (06:20→20:55)
[2023-03-12] MEDS: methylPREDNISolone SOD SUCCI 40 MG/ML 1 ML VIAL IV SCH (06:22)
[2023-03-12] MEDS: PANTOPRAZOLE 40 MG TABLET PO SCH ×2 (06:22→16:16)
[2023-03-12] MEDS: IPRATROPIUM-ALBUTEROL 3 ML NEB INHALATION SCH ×4 (07:39→19:42)
[2023-03-12] MEDS: SYMBICORT 80-4.5 MCG INHALER INHALATION SCH ×2 (07:39→19:42)
[2023-03-12] MEDS: FUROSEMIDE 20 MG TAB PO SCH ×2 (09:09→20:51)
[2023-03-12] MEDS: CITALOPRAM HYDROBROMIDE 20 MG TAB PO SCH (09:09)
[2023-03-12] MEDS: DOXYCYCLINE 100 MG CAP PO SCH ×2 (09:09→20:51)
[2023-03-12] MEDS: METOPROLOL SUCCINATE (ER) 50 MG TAB.ER.24H PO SCH (09:09)
[2023-03-12] MEDS: MELOXICAM 7.5 MG TAB PO SCH (09:09)
[2023-03-12] MEDS: APIXABAN 5 MG TAB PO SCH ×2 (09:09→20:51)
[2023-03-12 11:31] LABS: Glucose,Whole Blood 104 mg/dL (70-110)
--- NOTE | 2023-03-12 13:46 | P.PN ---
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 The patient is essentially sedentary. She smokes about 8 to consider some daily basis. She presented to the hospital because of worsening shortness of breath and this has progressed over the past several days. She had increased cough congestion chest tightness and wheezing. She also was becoming more lethargic a some family members. The patient is also known to have severe obstructive sleep apnea with an AHI of 61. She was offered a CPAP machine at a pressure of 10 cm of water. She has a full facemask. She has been able to use the machine and the patient has not been essentially compliant to treatment. Based on worsening shortness of breath, the patient came into the emergency department. The patient placed on 3 L of oxygen by nasal cannula. Started on bronchodilators. Noted the patient uses Trelegy Ellipta and prednisone 5 mg on a daily basis. The white cell count of 15.1 with a hemoglobin of 14.1 and a platelet count of 384. BUN is at 17 with a creatinine of 0.4 and sodium levels of 140. Troponins are negative. ProBNP level is at 86. No chest pain. No pleurisy. No hemoptysis. No increased edema in lower extremities. She is arousable and she is communicating his moldable 4 extremities without any limitation. She has chronic back pain. She has been sedentary. She has a series patient is still her lower back. She also has previous history of pulmonary embolism and the patient remains on anticoagulation with Eliquis 5 mg by mouth twice a day. On today's evaluation of 6.2 2022, the patient is awake and alert and communicating and she feels much better compared to yesterday. No signs of any CO2 narcosis. The blood gas was done yesterday and it showed compensated hypercapnic respiratory failure. Overnight, the patient uses CPAP at a pressure of 10 cm of water. At AHI was 0.5 while on treatment with a minimum amount of air leaks. The patient is using an Airfit F20 fullface mask. The patient will be taken off the IV Solu-Medrol and started on prednisone burst taper. She is on doxycycline. She is on bronchodilators. She is on Symbicort. On outpatient basis, she is on Trelegy Ellipta. She still complaining of chronic back pain. She is receiving pain shots. Objective - Vital Signs Vital signs: Vital Signs Temp 97.8 F 03/12/23 07:59 Pulse 106 H 03/12/23 07:59 Resp 19 03/12/23 07:59 BP 117/65 03/12/23 07:59 Pulse Ox 93 L 03/12/23 07:59 FiO2 Intake & Output 03/11/23 03/12/23 03/12/23 18:59 06:59 18:59 Intake Total 1020 540 Output Total 400 600 Balance 620 -600 540 Weight 117.5 kg Intake: Oral 1020 540 Output: Urine 400 600 Other: Voiding Method Toilet # Voids 1 # Bowel Movements 1 - Exam Morbidly obese, calm and comfortable, body mass index is 41.2, the patient has typical cushingoid features, alert and awake and communicating Head exam was generally normal. There was no scleral icterus or corneal arcus. Mucous membranes were moist. Neck was supple and without jugular venous distension, thyromegaly, or carotid bruits. Carotids were easily palpable bilaterally. There was no adenopathy. The patient is a Mallampati class IV with significant crowding of the posterior oropharynx Cardiac exam revealed the PMI to be normally situated and sized. The rhythm was regular and no extrasystoles were noted during several minutes of auscultation. The first and second heart sounds were normal and physiologic splitting of the second heart sound was noted. There were no murmurs, rubs, clicks, or gallops. Lungs sounds are diminished bilaterally and the patient has diffuse extremity wheezes throughout the lung coronado Abdominal exam revealed normal bowel sounds. The abdomen was soft, non-tender, and without masses, organomegaly, or appreciable enlargement of the abdominal aorta. Obese and the patient CANNOT be accurately palpated. Examination of the extremities revealed easily palpable radial, femoral and pedal pulses. There was no cyanosis, clubbing or edema. Examination of the skin revealed no evidence of significant rashes, suspicious appearing nevi or other concerning lesions. Neurologically, the patient is awake and alert and the patient does not have any focal neurological deficit. Cranial nerves are essentially intact. - Labs CBC & Chem 7: 03/11/23 10:57 03/11/23 10:57 Labs: Abnormal Lab Results - Last 24 Hours (Table) 03/11/23 03/11/23 03/11/23 Range/Units 10:57 10:57 11:07 WBC 15.1 H (3.8-10.6) k/uL Hct 46.3 H (34.0-46.0) % MCHC 30.5 L (31.0-37.0) g/dL ABG pCO2 63 H (35-45) mmHg ABG pO2 69 L (83-108) mmHg ABG HCO3 38 H (21-25) mmol/L ABG Total CO2 40 H (19-24) mmol/L Chloride 94 L (98-107) mmol/L Carbon Dioxide 38 H (22-30) mmol/L Creatinine 0.43 L (0.52-1.04) mg/dL Glucose 127 H (74-99) mg/dL POC Glucose (mg/dL) (70-110) mg/dL 03/11/23 03/11/23 03/11/23 Range/Units 11:53 16:17 20:25 WBC (3.8-10.6) k/uL Hct (34.0-46.0) % MCHC (31.0-37.0) g/dL ABG pCO2 (35-45) mmHg ABG pO2 (83-108) mmHg ABG HCO3 (21-25) mmol/L ABG Total CO2 (19-24) mmol/L Chloride (98-107) mmol/L Carbon Dioxide (22-30) mmol/L Creatinine (0.52-1.04) mg/dL Glucose (74-99) mg/dL POC Glucose (mg/dL) 121 H 181 H 121 H (70-110) mg/dL 03/12/23 Range/Units 06:01 WBC (3.8-10.6) k/uL Hct (34.0-46.0) % MCHC (31.0-37.0) g/dL ABG pCO2 (35-45) mmHg ABG pO2 (83-108) mmHg ABG HCO3 (21-25) mmol/L ABG Total CO2 (19-24) mmol/L Chloride (98-107) mmol/L Carbon Dioxide (22-30) mmol/L Creatinine (0.52-1.04) mg/dL Glucose (74-99) mg/dL POC Glucose (mg/dL) 127 H (70-110) mg/dL Assessment and Plan Plan: Acute COPD exacerbation with secondary shortness of breath and clinically improved and the patient has no signs of CO2 narcosis and the blood gas was reviewed and it shows chronic compensated hypercapnic and hypoxic respiratory failure. Severe oxygen and steroid-dependent COPD with an FEV1 of less than 20% and the patient has limited on Trelegy Ellipta and prednisone at a dose of 5 mg on a daily basis, outpatient Severe obstructive sleep apnea, AHI of 61 and the patient has been treated with a CPAP pressure of 10 cm of water, suboptimal compliancy, started using the CPAP yesterday with excellent clinical response a compliancy Obesity Chronic back pain Immobility and the patient has been essentially sedentary Previous history of pulmonary embolism maintained on long-term anticoagulation with Eliquis History of diabetes mellitus type 2 with previous history of steroid-induced hyperglycemia Degenerative arthritis Hypertension History of smoking and the patient admits to smoke about 8 cigarettes on a daily basis Plan Titrate oxygen flow to maintain a saturation above 90%. Currently the patient is on 2 L nasal cannula and she is on 2 L at home Continue DuoNeb nebulized treatments [id number] Continue Symbicort Stop the IV Solu-Medrol and start the patient on prednisone burst taper Continue doxycycline Check a pro-calcitonin level and the level was 0.04 Subcu insulin for blood sugar control Continue CPAP therapy at a pressure of 10 cm of water Resume all medications Obtain a blood gas from yesterday was noted Patient is significant debilitated and she may benefit from placement We'll continue to follow
[2023-03-12 16:10] LABS: Glucose,Whole Blood 99 mg/dL (70-110)
[2023-03-12 19:56] LABS: Glucose,Whole Blood 106 mg/dL (70-110)
--- NOTE | 2023-03-12 22:56 | P.PN ---
Subjective Progress Note Date: 03/12/23 Patient is a pleasant 67-year-old white female who was admitted with exacerbation of COPD. She is still complaining of back pain which is ongoing evaluation by orthopedic learning disabilities specialist. She is still on IV steroids and max pulmonary treatment Objective - Vital Signs Vital signs: Vital Signs Temp 97.9 F 03/12/23 20:00 Pulse 89 03/12/23 20:57 Resp 17 03/12/23 20:57 BP 128/83 03/12/23 20:00 Pulse Ox 93 L 03/12/23 20:00 FiO2 Intake & Output 03/12/23 03/12/23 03/13/23 06:59 18:59 06:59 Intake Total 1440 Output Total 600 Balance -600 1440 Weight 117.5 kg Intake: Oral 1440 Output: Urine 600 Other: Voiding Method Toilet Toilet # Voids 2 - Exam GENERAL: This is a 67-year-old in no apparent distress at the time of examination. Pleasant and cooperative. HEENT: Head is atraumatic, normocephalic. Pupils are equal, round, and reactive to light. Sclerae anicteric. Conjunctivae are clear. Mucus membranes of the mouth are moist. Neck is supple. RESPIRATORY: Decreased breath sounds bilateral with wheezing expiratory inspiratory bilateral CARDIOVASCULAR: irregular rate and rhythm. GASTROINTESTINAL: No distention noted. Abdomen soft and round. Normal active bowel sounds auscultated x 4 quadrants. No pain or tenderness noted upon palpation. INTEGUMENTARY: No cyanosis. No jaundice. No rashes noted. No cellulitis noted. EXTREMITIES: 2+ peripheral pulses. No evidence of peripheral edema. No calf tenderness noted. NEUROLOGIC: Cranial nerves II-XII intact. PSYCHIATRIC: Awake, alert, and oriented X 3. Appropriate affect. Intact judgement and insight. - Labs CBC & Chem 7: 03/11/23 10:57 03/11/23 10:57 Labs: Abnormal Lab Results - Last 24 Hours (Table) 03/12/23 Range/Units 06:01 POC Glucose (mg/dL) 127 H (70-110) mg/dL Assessment and Plan (1) COPD exacerbation Current Visit: Yes Status: Acute Code(s): J44.1 - CHRONIC OBSTRUCTIVE PULMONARY DISEASE W (ACUTE) EXACERBATION SNOMED Code(s): 694620564 (2) Acute anxiety Current Visit: No Status: Acute Code(s): F41.9 - ANXIETY DISORDER, UNSPECIFIED SNOMED Code(s): 13320712 (3) Depression Current Visit: No Status: Acute Code(s): F32.9 - MAJOR DEPRESSIVE DISORDER, SINGLE EPISODE, UNSPECIFIED SNOMED Code(s): 84870817 (4) History of pulmonary embolism Current Visit: Yes Status: Acute Code(s): Z86.711 - PERSONAL HISTORY OF PULMONARY EMBOLISM SNOMED Code(s): 711407509 (5) Obesity (BMI 30-39.9) Current Visit: Yes Status: Acute Code(s): E66.9 - OBESITY, UNSPECIFIED SNOMED Code(s): 174059215 Plan: Patient is doing well plan is to wean IV steroids and oxygen patient could be discharged within 24 hours she does well
[2023-03-13] MEDS: CYCLOBENZAPRINE 10 MG TAB PO PRN (05:07)
[2023-03-13 05:57] LABS: Glucose,Whole Blood 101 mg/dL (70-110)
[2023-03-13] MEDS: INSULIN ASPART (NovoLOG) 100 UNIT/ML VIAL SQ SCH (06:20)
[2023-03-13] MEDS: PANTOPRAZOLE 40 MG TABLET PO SCH (06:34)
[2023-03-13 07:22] LABS: African American GFR (CKD) >90 (>60 ml/min/1.73 sqM); Anion Gap 3 mmol/L; Blood Urea Nitrogen 30 mg/dL (7-17); Carbon Dioxide 37 mmol/L (22-30); Chloride 98 mmol/L (98-107); Non-African American GFR(CKD) >90 (>60 ml/min/1.73 sqM); Sodium 138 mmol/L (137-145)
[2023-03-13 07:23] LABS: Calcium 8.8 mg/dL (8.4-10.2)
[2023-03-13 07:32] LABS: Glucose 91 mg/dL (74-99)
[2023-03-13 07:33] LABS: Magnesium 1.8 mg/dL (1.6-2.3); Potassium 4.7 mmol/L (3.5-5.1)
[2023-03-13] MEDS: IPRATROPIUM-ALBUTEROL 3 ML NEB INHALATION SCH ×2 (08:06→11:37)
[2023-03-13] MEDS: SYMBICORT 80-4.5 MCG INHALER INHALATION SCH (08:06)
[2023-03-13] MEDS: DOXYCYCLINE 100 MG CAP PO SCH (08:22)
[2023-03-13] MEDS: FUROSEMIDE 20 MG TAB PO SCH (08:23)
[2023-03-13] MEDS: METOPROLOL SUCCINATE (ER) 50 MG TAB.ER.24H PO SCH (08:23)
[2023-03-13] MEDS: APIXABAN 5 MG TAB PO SCH (08:23)
[2023-03-13] MEDS: CITALOPRAM HYDROBROMIDE 20 MG TAB PO SCH (08:23)
[2023-03-13] MEDS: MELOXICAM 7.5 MG TAB PO SCH (08:23)
[2023-03-13] MEDS ORDERED: MAGNESIUM SULFATE-D5W PMX 1 GM in DEXTROSE/WATER 1 100ML.BAG IVPB ONE (08:53)
[2023-03-13] MEDS ORDERED: Magnesium Replacement Protocol 1 EACH MISC MISCELLANE PRN (08:53)
[2023-03-13] MEDS ORDERED: predniSONE 20 MG TAB PO SCH (09:00)
[2023-03-13 10:55] VITALS: RESP 16
[2023-03-13 11:31] VITALS: BP 114/66; TEMP 97.8
[2023-03-13 11:49] VITALS: PULSE 76
[2023-03-13 11:50] LABS: Glucose,Whole Blood 143 mg/dL (70-110)
[2023-03-13] MEDS ORDERED: MAGNESIUM OXIDE 400 MG TAB PO STA (11:50)
--- NOTE | 2023-03-13 11:56 | P.PN ---
Subjective Progress Note Date: 03/13/23 67-year-old female patient, advanced oxygen-dependent COPD and she is also steroid dependent. The patient is essentially sedentary. She smokes about 8 to consider some daily basis. She presented to the hospital because of worsening shortness of breath and this has progressed over the past several days. She had increased cough congestion chest tightness and wheezing. She also was becoming more lethargic a some family members. The patient is also known to have severe obstructive sleep apnea with an AHI of 61. She was offered a CPAP machine at a pressure of 10 cm of water. She has a full facemask. She has been able to use the machine and the patient has not been essentially compliant to treatment. Based on worsening shortness of breath, the patient came into the emergency department. The patient placed on 3 L of oxygen by nasal cannula. Started on bronchodilators. Noted the patient uses Trelegy Ellipta and prednisone 5 mg on a daily basis. The white cell count of 15.1 with a hemoglobin of 14.1 and a platelet count of 384. BUN is at 17 with a creatinine of 0.4 and sodium levels of 140. Troponins are negative. ProBNP level is at 86. No chest pain. No pleurisy. No hemoptysis. No increased edema in lower extremities. She is arousable and she is communicating his moldable 4 extremities without any limitation. She has chronic back pain. She has been sedentary. She has a series patient is still her lower back. She also has previous history of pulmonary embolism and the patient remains on anticoagulation with Eliquis 5 mg by mouth twice a day. On today's evaluation of 6.2 2022, the patient is awake and alert and communicating and she feels much better compared to yesterday. No signs of any CO2 narcosis. The blood gas was done yesterday and it showed compensated hypercapnic respiratory failure. Overnight, the patient uses CPAP at a pressure of 10 cm of water. At AHI was 0.5 while on treatment with a minimum amount of air leaks. The patient is using an Airfit F20 fullface mask. The patient will be taken off the IV Solu-Medrol and started on prednisone burst taper. She is on doxycycline. She is on bronchodilators. She is on Symbicort. On outpatient basis, she is on Trelegy Ellipta. She still complaining of chronic back pain. She is receiving pain shots. On today's evaluation of 6.3, the patient is resting comfortably in bed. The patient has no specific complaints. Utilizing CPAP overnight. No chest pain. No cough or sputum production. No signs of any CO2 narcosis. The patient remains in a stable. The patient remains on Symbicort and DuoNeb about treatments [id number] and the patient was started on Symbicort as kayla ntenance and a prednisone burst taper. Blood work from today shows a BUN of 30 with a creatinine of 0.5 and the patient's serum bicarbs at 37 with a sodium level of 138 and a potassium level of 4.7. Objective - Vital Signs Vital signs: Vital Signs Temp 97.8 F 03/13/23 04:00 Pulse 94 03/13/23 08:17 Resp 18 03/13/23 04:00 BP 115/69 03/13/23 04:00 Pulse Ox 94 L 03/13/23 08:10 FiO2 Intake & Output 03/12/23 03/13/23 03/13/23 18:59 06:59 18:59 Intake Total 1440 100 Balance 1440 100 Weight 113.3 kg Intake: Oral 1440 100 Other: Voiding Method Toilet Toilet # Voids 2 1 - Exam Morbidly obese, calm and comfortable, body mass index is 41.2, the patient has typical cushingoid features, alert and awake and communicating Head exam was generally normal. There was no scleral icterus or corneal arcus. Mucous membranes were moist. Neck was supple and without jugular venous distension, thyromegaly, or carotid bruits. Carotids were easily palpable bilaterally. There was no adenopathy. The patient is a Mallampati class IV with significant crowding of the posterior oropharynx Cardiac exam revealed the PMI to be normally situated and sized. The rhythm was regular and no extrasystoles were noted during several minutes of auscultation. The first and second heart sounds were normal and physiologic splitting of the second heart sound was noted. There were no murmurs, rubs, clicks, or gallops. Lungs sounds are diminished bilaterally and the patient has diffuse extremity wheezes throughout the lung coronado Abdominal exam revealed normal bowel sounds. The abdomen was soft, non-tender, and without masses, organomegaly, or appreciable enlargement of the abdominal aorta. Obese and the patient CANNOT be accurately palpated. Examination of the extremities revealed easily palpable radial, femoral and pedal pulses. There was no cyanosis, clubbing or edema. Examination of the skin revealed no evidence of significant rashes, suspicious appearing nevi or other concerning lesions. Neurologically, the patient is awake and alert and the patient does not have any focal neurological deficit. Cranial nerves are essentially intact. - Labs CBC & Chem 7: 03/11/23 10:57 03/13/23 06:51 Labs: Abnormal Lab Results - Last 24 Hours (Table) 03/13/23 Range/Units 06:51 Carbon Dioxide 37 H (22-30) mmol/L BUN 30 H (7-17) mg/dL Assessment and Plan Plan: Acute COPD exacerbation with secondary shortness of breath and clinically improved and the patient has no signs of CO2 narcosis and the blood gas was reviewed and it shows chronic compensated hypercapnic and hypoxic respiratory failure. Severe oxygen and steroid-dependent COPD with an FEV1 of less than 20% and the patient has limited on Trelegy Ellipta and prednisone at a dose of 5 mg on a daily basis, outpatient Severe obstructive sleep apnea, AHI of 61 and the patient has been treated with a CPAP pressure of 10 cm of water, suboptimal compliancy, started using the CPAP yesterday with excellent clinical response a compliancy Obesity Chronic back pain Immobility and the patient has been essentially sedentary Previous history of pulmonary embolism maintained on long-term anticoagulation with Eliquis History of diabetes mellitus type 2 with previous history of steroid-induced hyperglycemia Degenerative arthritis Hypertension History of smoking and the patient admits to smoke about 8 cigarettes on a daily basis Plan Continue prednisone burst taper Blood work and electrolytes are all within normal limits Titrate oxygen flow to maintain a saturation above 90%. Currently the patient is on 2 L nasal cannula and she is on 2 L at home Continue DuoNeb nebulized treatments [id number] Continue Symbicort Continue doxycycline Check a pro-calcitonin level and the level was 0.04 Subcu insulin for blood sugar control Continue CPAP therapy at a pressure of 10 cm of water Resume all medications Obtain a blood gas from yesterday was noted Patient is significant debilitated and she may benefit from placement We'll continue to follow Possible discharge within the next 24-48 hours
[2023-03-13] MEDS ORDERED: LIDOCAINE 5% PATCH TOPICAL SCH (12:00)
--- NOTE | 2023-03-13 12:08 | P.DS ---
Providers Date of admission: 03/12/23 10:02 Attending physician: Devante Loja Consults: 03/11/23 01:46 Consult Physician Routine Consulting Provider: Sneha Hall Consult Reason/Comments: COPD exas Do you want consulting provider notified?: Yes, Notify in am Primary care physician: Devante Loja [facility] Course: Final Diagnosis Acute COPD exacerbation Chronic hypoxic respiratory failure on home oxygen History of pulmonary embolism History of heart failure with no acute exacerbation GERD Sleep apnea history Chronic back pain currently following with pain management services outpatient Obesity Anxiety/depression Chronic nicotine Full Code Discharge Disposition Patient is [facility] Remains on home oxygen dose at 2L nasal cannula. On prednisone burst for 2 more days and resume home oral prednisone dose of 5 mg daily. Patient to continue doxycycline for 4 more days. Continue on celebrex and also given lidoderm patch for the left lower back pain. If this is ineffective patient may discontinues use and recommend trial of diclofenac gel. Patient to repeat labs in 2 to 3 days. Follow up with Dr. Trejo patients gate tender and also with PCP Dr. Loja on Discharge. Hospital Course This is a 67-year-old female with a past medical history including COPD, hypertension and diabetes. The patient is having worsening shortness of breath at home and feels that changes in weather and humidity and heat increase her COPD. The patient did state that she rarely goes outside because of this. The patient did state that she is on 2 L of nasal cannula at home but stated she needed more oxygen, The patient was given a DuoNeb by EMS on arrival and stated that this did help her symptoms but was still having shortness of breath. Patient was admitted for acute COPD exacerbation and pulmonary was consulted. The patient denied any fevers, chills as well as any nausea and vomiting. Denies chest pain. Patient was given IV steroids and updrafts and continued on home inhalers. Has also been following with pain management services outpatient and has received 1 injection to the lower back and is scheduled in a few weeks for a second injection patient will then undergo a cryoprocedure for the back pain. Patient is continued on celebrex and will also be given lidoderm patch. Patient currently denying shortness of breath and lungs are clear on examination. No wheezing noted and patient is tolerating activity. Patient has been transitioned to oral steroids. Continues on all other same home medications. Patient does have generalized weakness and felt to benefit from subacute rehab on discharge and patient is medically clear for DC Today with the above mentioned recommendations. Please see medication reconciliation for a list of current medication. Thank you for allowing us to participate in the care of this patient. The impression and plan of care has been dictated by Renate Armstrong, Nurse Practitioner as directed. Dr. Dago MD I have performed a history and physical examination and medical decision making of this patient, discussed the same with the dictator, and agree with the dictators assessment and plan as written, documented as a scribe. Based on total visit time, I have performed more than 50% of this visit. Patient Condition at Discharge: Stable Plan - Discharge Summary New Discharge Prescriptions: New predniSONE [Deltasone] 40 mg PO DAILY tab INSULIN ASPART (NovoLOG) [NovoLOG (formulary)] 0 unit SQ ACHS each Doxycycline [Vibramycin] 100 mg PO BID 4 Days #8 cap Lidocaine 5% Patch [Lidoderm 5% Patch] 1 patch TOPICAL DAILY patch Continue Albuterol Sulfate [Ventolin HFA] 2 puff INHALATION RT-Q6H PRN PRN Reason: Shortness Of Breath Omeprazole [PriLOSEC] 20 mg PO BID Albuterol Inhaler [Ventolin Hfa Inhaler] 2 puff INHALATION RT-QID PRN #0 puff PRN Reason: Shortness Of Breath Or Wheezing Citalopram Hydrobromide [CeleXA] 20 mg PO DAILY #30 tab Metoprolol Succinate (ER) [Toprol XL] 50 mg PO DAILY Furosemide [Lasix] 20 mg PO BID Celecoxib [CeleBREX] 100 mg PO DAILY Cyclobenzaprine [Flexeril] 10 mg PO TID PRN PRN Reason: Muscle Pain Fluticasone/Umeclidin/Vilanter [Trelegy Ellipta 100-62.5-25] 1 puff INHALATION RT-DAILY predniSONE 5 mg PO DAILY Apixaban [Eliquis] 5 mg PO BID Discharge Medication List Albuterol Sulfate [Ventolin HFA] 2 puff INHALATION RT-Q6H PRN 04/02/14 [History] Omeprazole [PriLOSEC] 20 mg PO BID 04/02/14 [History] Albuterol Inhaler [Ventolin Hfa Inhaler] 2 puff INHALATION RT-QID PRN #0 puff 10/01/16 [Rx] Citalopram Hydrobromide [CeleXA] 20 mg PO DAILY #30 tab 10/01/16 [Rx] Apixaban [Eliquis] 5 mg PO BID 03/11/23 [History] Celecoxib [CeleBREX] 100 mg PO DAILY 03/11/23 [History] Cyclobenzaprine [Flexeril] 10 mg PO TID PRN 03/11/23 [History] Fluticasone/Umeclidin/Vilanter [Trelegy Ellipta 100-62.5-25] 1 puff INHALATION RT-DAILY 03/11/23 [History] Furosemide [Lasix] 20 mg PO BID 03/11/23 [History] Metoprolol Succinate (ER) [Toprol XL] 50 mg PO DAILY 03/11/23 [History] predniSONE 5 mg PO DAILY 03/11/23 [History] Doxycycline [Vibramycin] 100 mg PO BID 4 Days #8 cap 03/13/23 [Rx] INSULIN ASPART (NovoLOG) [NovoLOG (formulary)] 0 unit SQ ACHS each 03/13/23 [Rx] Lidocaine 5% Patch [Lidoderm 5% Patch] 1 patch TOPICAL DAILY patch 03/13/23 [Rx] predniSONE [Deltasone] 40 mg PO DAILY tab 03/13/23 [Rx] Follow up Appointment(s)/Referral(s): Devante Loja DO [Primary Care Provider] - 1-2 days Edmund Trejo MD [STAFF PHYSICIAN] - 1 Week Ambulatory/Diagnostic Orders: Basic Metabolic Panel [LAB.AMB] Time Frame: 3 Days, Location: None Selected Complete Blood Count w/diff [LAB.AMB] Time Frame: 3 Days, Location: None Selected Activity/Diet/Wound Care/Special Instructions: Continue oral doxycycline BID for 4 more days Continue oral prednisone 40 mg for 2 more days and than resume home dose of 5 mg po daily of oral prednisone Lidoderm patch to left lower back 12hours on and 12 hours off Patient to follow up with pain management on discharge for next injection appt. Discharge Disposition: TRANSFER TO SNF/ECF
--- NOTE | 2023-03-16 13:43 | CDI ---
Documentation Clarification Form Date: 03/16/2023 01:22:36 PM From: Cherie Couch Phone: Admit Date: 03/12/2023 10:02:00 AM Patient Name: Zeinab Anna Visit Number: [id number] Discharge Date: 03/13/2023 01:14:00 PM ATTENTION: The Clinical Documentation Specialists (CDI) and [facility] Coding Staff appreciate your assistance in clarifying documentation. Please respond to the clarification below the line at the bottom and electronically sign. The CDI & [facility] Coding staff will review the response and follow-up if needed. Please note: Queries are made part of the Legal Health Record. If you have any questions, please contact the author of this message via ITS. Dr. Jamison Loza Typical cushingoid features is documented Pulmonology-Consult Note which may lack sufficient clinical evidence/support in the medical record. Additional clarification is requested. History/Risk Factors: 67yo F, AECOPD, CH/HRF on Home O2, Hx PE, CHF, GERD, JARVIS, chronic LBP, morbid obesity, anxiety, depression, smoker, steroid dependent, DMII Clinical Indicators: Morbidly obese w BMI 41.2, the patient has typicalcushingoidfeatures, alert and awake and communicating. Head exam was generally normal. Therewas noscleralicterusorcorneal arcus. Mucous membranes were moist. Denies weight change; previous history of steroid-inducedhyperglycemia Treatment: Continue prednisone burst taper. Blood work and electrolytes wnl. Titrate oxygen flow to maintain a saturation above 90%.Currently the patient is on 2 L nasal cannula and she is on 2 L at home. Continue DuoNeb nebulized treatments [id number]. Continue Symbicort. Continue doxycycline. Check a pro-calcitonin level and the level was 0.04. Resume all medications. Obtain a blood gas from yesterday was noted. Patient is significantlydebilitatedand shemay benefit fromplacement. Please clarify if Cushings syndrome is a valid diagnosis? [ ] Yes, Cushings syndrome is present as evidence by (additional clinical support): [ ] Due to chronic steroid use [ ] Due to (please specify): [ ] No, Cushings syndrome is ruled out [ ] Other (please specify diagnosis) [ ] Unable to determine (Template Last Revised: December 2020) MTDD
== END 2023-03-13 13:14 ==
LOC: EC 21:50 → 3SCARD 03-11 01:46 → INTOOBSV 03-12 10:02 → OBSVTOIN 03-12 10:02 → UNDODISIN 03-13 13:14
PROVIDERS: ADMIT Family Medicine; ATTEND Family Medicine
DX: J44.1 Chronic obstructive pulmonary disease with (acute) exacerbation (principal); Z68.41 Body mass index [BMI] 40.0-44.9, adult; E11.9 Type 2 diabetes mellitus without complications; I11.0 Hypertensive heart disease with heart failure; I50.9 Heart failure, unspecified; K21.9 Gastro-esophageal reflux disease without esophagitis; F41.9 Anxiety disorder, unspecified; M19.90 Unspecified osteoarthritis, unspecified site; G47.33 Obstructive sleep apnea (adult) (pediatric); M54.9 Dorsalgia, unspecified; G89.29 Other chronic pain; F17.210 Nicotine dependence, cigarettes, uncomplicated; E66.01 Morbid (severe) obesity due to excess calories; Z86.711 Personal history of pulmonary embolism; Z99.81 Dependence on supplemental oxygen; Z79.899 Other long term (current) drug therapy; Z79.01 Long term (current) use of anticoagulants; Z79.51 Long term (current) use of inhaled steroids; Z88.5 Allergy status to narcotic agent
CPT/HCPCS: 96372; 96375 ×2; 96376 ×2; 96365; 96366 ×2; 99285; 36415; 94640 ×6; 36600; 94760 ×3; 94645; 93005; 97162; 97166; 83880; 80053; 80048 ×2; 82805; 83690; 83735 ×2; 84484; 85025; 85027; 84145; 71045; G0378 ×5; J1100; J2920 ×2; J3475; J7512

== ENCOUNTER 2023-12-27 12:16 | Observation (INO) | payer MEDICARE ==
--- NOTE | 2023-12-27 12:45 | ED ---
General Adult HPI - General Chief complaint: Shortness of Breath Stated complaint: SOB Time Seen by Provider: 12/27/23 12:25 Source: patient, RN notes reviewed, old records reviewed Mode of arrival: ambulatory Limitations: no limitations - History of Present Illness Initial comments: This is a 68-year-old female who presents to the emergency department complaining of difficulty breathing over the last few days. Patient states she is a smoker and has COPD and is on oxygen 03/05. Patient states the breathing is gotten worse she is more congested in the middle of the night sometimes she has to sit up because she feels as though she is gagging on some sputum. Patient denies any fever or chills patient denies chest pain or palpitation. Patient states she has got an vaccine for COVID and influenza but not RSV. Patient denies any chest pain. Patient has abdominal pain. Patient denies lightheadedness dizziness. - Related Data Home Medications Medication Instructions Recorded Confirmed Albuterol Sulfate [Ventolin HFA] 2 puff INHALATION RT-Q6H PRN 04/02/14 03/11/23 Omeprazole [PriLOSEC] 20 mg PO BID 04/02/14 03/11/23 Apixaban [Eliquis] 5 mg PO BID 03/11/23 03/11/23 Celecoxib [CeleBREX] 100 mg PO DAILY 03/11/23 03/11/23 Cyclobenzaprine [Flexeril] 10 mg PO TID PRN 03/11/23 03/11/23 Fluticasone/Umeclidin/Vilanter 1 puff INHALATION RT-DAILY 03/11/23 03/11/23 [Thelma Montano 100-62.5-25] Furosemide [Lasix] 20 mg PO BID 03/11/23 03/11/23 Metoprolol Succinate (ER) [Toprol 50 mg PO DAILY 03/11/23 03/11/23 XL] predniSONE 5 mg PO DAILY 03/11/23 03/11/23 Previous Rx's Medication Instructions Recorded Albuterol Inhaler [Ventolin Hfa 2 puff INHALATION RT-QID PRN #0 10/01/16 Inhaler] puff Citalopram Hydrobromide [CeleXA] 20 mg PO DAILY #30 tab 10/01/16 Doxycycline [Vibramycin] 100 mg PO BID 4 Days #8 cap 03/13/23 INSULIN ASPART (NovoLOG) [NovoLOG 0 unit SQ ACHS each 03/13/23 (formulary)] Lidocaine 5% Patch [Lidoderm 5% 1 patch TOPICAL DAILY patch 03/13/23 Patch] predniSONE [Deltasone] 40 mg PO DAILY tab 03/13/23 Allergies Allergy/AdvReac Type Severity Reaction Status Date / Time hydrocodone AdvReac Nightmares Verified 12/27/23 12:26 Review of Systems ROS Statement: Those systems with pertinent positive or pertinent negative responses have been documented in the HPI. ROS Other: All systems not noted in ROS Statement are negative. Past Medical History Past Medical History: Heart Failure, COPD, GERD/Reflux, Hypertension, Osteoarthritis (OA), Pulmonary Embolus (PE), Sleep Apnea/CPAP/BIPAP Additional Past Medical History / Comment(s): just finished antibiotic for recent UTI History of Any Multi-Drug Resistant Organisms: None Reported Past Surgical History: Cholecystectomy, Joint Replacement Additional Past Surgical History / Comment(s): Bilateral knee replacement Past Anesthesia/Blood Transfusion Reactions: No Reported Reaction Past Psychological History: Anxiety Smoking Status: Current every day smoker Past Alcohol Use History: Rare Past Drug Use History: None Reported General Exam - General Exam Comments Initial Comments: GENERAL: Patient is well-developed and well-nourished. Patient is nontoxic and well- hydrated and is in mild distress. ENT: Neck is soft and supple. No significant lymphadenopathy is noted. Oropharynx is clear. Moist mucous membranes. Neck has full range of motion without eliciting any pain. EYES: The sclera were anicteric and conjunctiva were pink and moist. Extraocular movements were intact and pupils were equal round and reactive to light. Eyelids were unremarkable. PULMONARY: Patient's breath sounds are significantly diminished and he still has some expiratory wheezing. CARDIOVASCULAR: There is a regular rate and rhythm without any murmurs gallops or rubs. ABDOMEN: Soft and nontender with normal bowel sounds. SKIN: Skin is clear with no lesions or rashes and otherwise unremarkable. NEUROLOGIC: Patient is alert and oriented x3. Cranial nerves II through XII are grossly intact. Motor and sensory are also intact. Normal speech, volume and content. Symmetrical smile. MUSCULOSKELETAL: Normal extremities with adequate strength and full range of motion. No lower extremity swelling or edema. No calf tenderness. LYMPHATICS: No significant lymphadenopathy is noted PSYCHIATRIC: Normal psychiatric evaluation. Limitations: no limitations Course Vital Signs 12/27/23 12:24 Temperature 98.9 F Pulse Rate 78 Respiratory 24 Rate Blood Pressure 111/70 O2 Sat by Pulse 92 L Oximetry Medical Decision Making - Medical Decision Making EKG is interpreted by myself. EKG shows a sinus rhythm at 77 bpm W[place] interval is 149 QRS is 87 QT interval 367 QTc is 399. Patient's EKG shows no ST segment ovation or depression. Was pt. sent in by a medical professional or institution (, [facility], INFORMAL WAITER/WAITRESS, urgent care, hospital, or care home...) When possible be specific @ -No Did you speak to anyone other than the patient for history (EMS, parent, family, police, friend...)? What history was obtained from this source @ -No Did you review nursing and triage notes (agree or disagree)? Why? @ -I reviewed and agree with nursing and triage notes Were old charts reviewed (outside hosp., previous admission, EMS record, old EKG, old radiological studies, urgent care reports/EKG's, care home records)? Report findings @ -I reviewed prior charts and prior lab work on this patient Differential Diagnosis (chest pain, altered mental status, abdominal pain women, abdominal pain men, vaginal bleeding, weakness, fever, dyspnea, syncope, headache, dizziness, GI bleed, back pain, seizure, CVA, palpatations, mental health, musculoskeletal)? @ -Differential Dyspnea: Coronary syndrome, arrhythmia, tamponade, asthma, COPD, pulmonary embolism, pneumonia, pneumothorax, pulmonary effusion, anaphylaxis, diabetic ketoacidosis, flailed chest, pulmonary contusion, diaphragmatic rupture, anemia, neuromuscular, this is not meant to be an all-inclusive list. EKG interpreted by me (3pts min.). @ -As above X-rays interpreted by me (1pt min.). @ -Chest x-ray shows no acute abnormality CT interpreted by me (1pt min.). @ -None done U/S interpreted by me (1pt. min.). @ -None done What testing was considered but not performed or refused? (CT, X-rays, U/S, labs)? Why? @ -None What meds were considered but not given or refused? Why? @ -None Did you discuss the management of the patient with other professionals (professionals i.e. , PA, INFORMAL WAITER/WAITRESS, lab, RT, psych nurse, child welfare social worker, frequency checker, teacher, tax revenue officer, corrections caseworker)? Give summary @ -I spoke with Dr. Cornell he agreed to admit the patient Was smoking cessation discussed for >3mins.? @ -No Was critical care preformed (if so, how long)? @ -No Were there social determinants of health that impacted care today? How? (Ginger elessness, low income, unemployed, alcoholism, drug addiction, transportation, low edu. Level, literacy, decrease access to med. care, alf, rehab)? @ -No Was there de-escalation of care discussed even if they declined (Discuss DNR or withdrawal of care, Hospice)? DNR status @ -No What co-morbidities impacted this encounter? (DM, HTN, Smoking, COPD, CAD, Cancer, CVA, ARF, Chemo, Hep., AIDS, mental health diagnosis, sleep apnea, morbid obesity)? @ -None Was patient admitted / discharged? Hospital course, mention meds given and route, prescriptions, significant lab abnormalities, going to OR and other pertinent info. @ -Patient received multiple breathing treatments in the emergency department as well as steroids and patient did improve slightly however still quite dyspneic. Patient's chest x-ray showed no acute normality patient had no testable viral illness. Patient will be admitted to [facility] for an exacerbation of COPD. Patient will be continued on albuterol and steroids as well as an antibiotic. Undiagnosed new problem with uncertain prognosis? @ -No Drug Therapy requiring intensive monitoring for toxicity (Heparin, Nitro, Insulin, Cardizem)? @ -No Were any procedures done? @ -No Diagnosis/symptom? @ -COPD exacerbation Acute, or Chronic, or Acute on Chronic? @ -Acute Uncomplicated (without systemic symptoms) or Complicated (systemic symptoms)? @ -Complicated Side effects of treatment? @ -No Exacerbation, Progression, or Severe Exacerbation? @ -Severe exacerbation Poses a threat to life or bodily function? How? (Chest pain, [place], [place], pneumonia, PE, COPD, DKA, ARF, appy, cholecystitis, CVA, Diverticulitis, Homicidal, Suicidal, threat to staff... and all critical care pts) @ -Yes this can lead to hypoxia and endorgan dysfunction - Lab Data Result diagrams: 12/27/23 13:06 12/27/23 13:06 Lab Results 12/27/23 12/27/23 12/27/23 Range/Units 13:06 13:06 13:06 WBC 13.3 H (3.8-10.6) k/uL RBC 4.82 (3.80-5.40) m/uL Hgb 12.6 (11.4-16.0) gm/dL Hct 41.2 (34.0-46.0) % MCV 85.6 (80.0-100.0) fL MCH 26.2 (25.0-35.0) pg MCHC 30.6 L (31.0-37.0) g/dL RDW 14.7 (11.5-15.5) % Plt Count 287 (150-450) k/uL MPV 7.1 Neutrophils % 85 % Lymphocytes % 9 % Monocytes % 3 % Eosinophils % 1 % Basophils % 0 % Neutrophils # 11.4 H (1.3-7.7) k/uL Lymphocytes # 1.2 (1.0-4.8) k/uL Monocytes # 0.4 (0-1.0) k/uL Eosinophils # 0.2 (0-0.7) k/uL Basophils # 0.0 (0-0.2) k/uL Hypochromasia Moderate PT 10.2 (10.0-12.5) sec INR 0.9 (<1.2) APTT 25.3 (22.0-30.0) sec Sodium 141 (137-145) mmol/L Potassium 4.3 (3.5-5.1) mmol/L Chloride 101 (98-107) mmol/L Carbon Dioxide 35 H (22-30) mmol/L Anion Gap 5 mmol/L BUN 17 (7-17) mg/dL Creatinine 0.49 L (0.52-1.04) mg/dL Est GFR (CKD-EPI)AfAm >90 (>60 ml/min/1.73 sqM) Est GFR (CKD-EPI)NonAf >90 (>60 ml/min/1.73 sqM) Glucose 84 (74-99) mg/dL Plasma Lactic Acid Eduard (0.7-2.0) mmol/L Calcium 9.0 (8.4-10.2) mg/dL Magnesium 1.8 (1.6-2.3) mg/dL Total Bilirubin 0.3 (0.2-1.3) mg/dL AST 23 (14-36) U/L ALT 18 (4-34) U/L Alkaline Phosphatase 105 (38-126) U/L Troponin I (0.000-0.034) ng/mL Total Protein 6.5 (6.3-8.2) g/dL Albumin 3.9 (3.5-5.0) g/dL Influenza Type A (PCR) (Not Detectd) Influenza Type B (PCR) (Not Detectd) RSV (PCR) (Not Detectd) SARS-CoV-2 (PCR) (Not Detectd) 12/27/23 12/27/23 12/27/23 Range/Units 13:06 13:06 13:06 WBC (3.8-10.6) k/uL RBC (3.80-5.40) m/uL Hgb (11.4-16.0) gm/dL Hct (34.0-46.0) % MCV (80.0-100.0) fL MCH (25.0-35.0) pg MCHC (31.0-37.0) g/dL RDW (11.5-15.5) % Plt Count (150-450) k/uL MPV Neutrophils % % Lymphocytes % % Monocytes % % Eosinophils % % Basophils % % Neutrophils # (1.3-7.7) k/uL Lymphocytes # (1.0-4.8) k/uL Monocytes # (0-1.0) k/uL Eosinophils # (0-0.7) k/uL Basophils # (0-0.2) k/uL Hypochromasia PT (10.0-12.5) sec INR (<1.2) APTT (22.0-30.0) sec Sodium (137-145) mmol/L Potassium (3.5-5.1) mmol/L Chloride (98-107) mmol/L Carbon Dioxide (22-30) mmol/L Anion Gap mmol/L BUN (7-17) mg/dL Creatinine (0.52-1.04) mg/dL Est GFR (CKD-EPI)AfAm (>60 ml/min/1.73 sqM) Est GFR (CKD-EPI)NonAf (>60 ml/min/1.73 sqM) Glucose (74-99) mg/dL Plasma Lactic Acid Eduard 1.1 (0.7-2.0) mmol/L Calcium (8.4-10.2) mg/dL Magnesium (1.6-2.3) mg/dL Total Bilirubin (0.2-1.3) mg/dL AST (14-36) U/L ALT (4-34) U/L Alkaline Phosphatase (38-126) U/L Troponin I <0.012 (0.000-0.034) ng/mL Total Protein (6.3-8.2) g/dL Albumin (3.5-5.0) g/dL Influenza Type A (PCR) Not Detected (Not Detectd) Influenza Type B (PCR) Not Detected (Not Detectd) RSV (PCR) Not Detected (Not Detectd) SARS-CoV-2 (PCR) Not Detected (Not Detectd) Disposition Clinical Impression: Acute exacerbation of chronic obstructive pulmonary disease (COPD) Disposition: ADMITTED IP TO THIS [facility] Referrals: Devante Loja DO [Primary Care Provider] - 1-2 days Time of Disposition: 14:29
[2023-12-27 13:19] LABS: Basophils % (A) 0 %; Eosinophils # (A) 0.2 k/uL (0-0.7); Eosinophils % (A) 1 %; HCT 41.2 % (34.0-46.0); HGB 12.6 gm/dL (11.4-16.0); Hypochromasia Moderate; Lymphocytes # (A) 1.2 k/uL (1.0-4.8); Lymphocytes % (A) 9 %; MCH 26.2 pg (25.0-35.0); MCHC 30.6 g/dL (31.0-37.0); MCV 85.6 fL (80.0-100.0); Mean Platelet Volume 7.1; Monocytes # (A) 0.4 k/uL (0-1.0); Monocytes % (A) 3 %; Neutrophils # (A) 11.4 k/uL (1.3-7.7); Neutrophils % (A) 85 %; Platelet Count 287 k/uL (150-450); RBC 4.82 m/uL (3.80-5.40); RDW 14.7 % (11.5-15.5); WBC 13.3 k/uL (3.8-10.6)
[2023-12-27] MEDS: methylPREDNISolone SOD SUCCI 125 MG/2 ML VIAL IV STA (13:26)
[2023-12-27 13:29] LABS: ALT 18 U/L (4-34); AST 23 U/L (14-36); African American GFR (CKD) >90 (>60 ml/min/1.73 sqM); Albumin 3.9 g/dL (3.5-5.0); Alkaline Phosphatase 105 U/L (38-126); Anion Gap 5 mmol/L; Blood Urea Nitrogen 17 mg/dL (7-17); Carbon Dioxide 35 mmol/L (22-30); Chloride 101 mmol/L (98-107); Glucose 84 mg/dL (74-99); Magnesium 1.8 mg/dL (1.6-2.3); Non-African American GFR(CKD) >90 (>60 ml/min/1.73 sqM); Potassium 4.3 mmol/L (3.5-5.1); Sodium 141 mmol/L (137-145); Total Bilirubin 0.3 mg/dL (0.2-1.3); Total Protein 6.5 g/dL (6.3-8.2)
[2023-12-27 13:35] LABS: INR 0.9 (<1.2); Partial Thromboplastin Time 25.3 sec (22.0-30.0); Prothrombin Time 10.2 sec (10.0-12.5)
--- NOTE | 2023-12-27 13:37 | XR ---
EXAMINATION TYPE: XR chest 2V DATE OF EXAM: 12/27/2023 1:25 PM CLINICAL INDICATION:Female, 68 years old with history of difficulty breathing; H COMPARISON: Chest radiographs from TECHNIQUE: XR chest 2V Frontal and lateral views of the chest. FINDINGS: Lungs/Pleura: There is no evidence of pleural effusion, focal consolidation, or pneumothorax. Pulmonary vascularity: Unremarkable. Heart/mediastinum: Cardiomediastinal silhouette is unremarkable. Musculoskeletal: No acute osseous pathology. Other findings: None Lines/Tubes: None. IMPRESSION: No acute cardiopulmonary disease/process.
[2023-12-27] MEDS: IPRATROPIUM 0.5 MG/2.5 ML NEBU INHALATION STA (14:31)
[2023-12-27] MEDS: ALBUTEROL NEBULIZED 2.5 MG/3 ML INHALATION STA (14:31)
[2023-12-27] MEDS ORDERED: NALOXONE 0.4 MG/ML 1 ML VIAL IVP PRN (14:32)
[2023-12-27] MEDS: IPRATROPIUM-ALBUTEROL 3 ML NEB INHALATION SCH (15:39)
[2023-12-27] MEDS ORDERED: ALBUTEROL NEBULIZED 2.5 MG/3 ML INHALATION PRN (17:07)
[2023-12-27] MEDS ORDERED: NON FORMULARY DRUG (Tirzepatide [Mounjaro] 2.5 MG/0.5 ML Pen.Injctr) SQ SCH (17:15)
[2023-12-27] MEDS: methylPREDNISolone SOD SUCCI 125 MG/2 ML VIAL IV SCH (18:33)
[2023-12-27] MEDS: AMOXIC-POT CLAV 875-125MG 1 EACH TAB PO SCH (21:54)
[2023-12-27] MEDS: FUROSEMIDE 20 MG TAB PO SCH (21:54)
[2023-12-27] MEDS: APIXABAN 5 MG TAB PO SCH (21:54)
--- NOTE | 2023-12-28 01:23 | P.CNPUL ---
History of Present Illness Consult date: 12/28/23 Requesting physician: Devante Loja Reason for consult: COPD Chief complaint: shortness of breath History of present illness: patient is a 68-year-old white female with past medical history significant for COPD, oxygen dependence normally on 2 L/min nasal cannula, pulmonary embolism anticoagulated on Eliquis, obstructive sleep apnea with home CPAP machine, among other things. She does follow in the pulmonary office. She utilizes a combination of Trelegy Ellipta and albuterol rescue inhaler. She is prednisone dependent on 5 mg daily. She presented the emergency room yesterday afternoon complaining up acute on chronic shortness of breath. Over the last 3 to 4 days she has had a productive cough with yellow sputum, chest congestion and tightness, and progressively worsening shortness of breath. She continues to smoke approximately 3 cigarettes/day. Denies any fevers, chills, chest pain, hemoptysis. Denies sick contacts. She is currently sitting up in bed, getting ready to put her CPAP machine on. CPAP machine has a pressure of 10 cm of water. There is 3 L of oxygen bled in. Chest x-ray on arrival did not show any focal infiltrates or evidence of pneumonia. She was negative for RSV, COVID, influenza. CBC shows some leukocytosis with a WC count of 13.3. The remainder of the CBC is unremarkable. BMP also unremarkable. Troponin less than 0.012. She is afebrile. Vital signs are stable. Review of Systems REVIEW OF SYSTEMS: CONSTITUTIONAL: Denies any recent significant weight loss or weight gain. EYES: Denies change in vision. EARS, NOSE, MOUTH, THROAT: Denies headaches, denies sore throat. CARDIOVASCULAR: Denies chest pain, palpitations or syncopal episodes. RESPIRATORY: See HPI GASTROINTESTINAL: Denies change in appetite, abdominal pain, nausea and vomiting, or diarrhea GENITOURINARY: Denies hematuria, denies infections. MUSKULOSKELETAL: Denies pain, denies swelling. INTEGUMENTARY: Denies rash, denies eczema. NEUROLOGICAL: Denies recent memory loss, no recent seizure activity. PSYCHIATRIC: Denies anxiety, denies depression. HEMATOLOGIC/LYMPHATIC: Denies anemia, denies enlarged lymph node Past Medical History Past Medical History: Heart Failure, COPD, GERD/Reflux, Hypertension, O steoarthritis (OA), Pulmonary Embolus (PE), Sleep Apnea/CPAP/BIPAP Additional Past Medical History / Comment(s): just finished antibiotic for recent UTI History of Any Multi-Drug Resistant Organisms: None Reported Past Surgical History: Cholecystectomy, Joint Replacement Additional Past Surgical History / Comment(s): Bilateral knee replacement Past Anesthesia/Blood Transfusion Reactions: No Reported Reaction Past Psychological History: Anxiety Smoking Status: Current every day smoker Past Alcohol Use History: Rare Past Drug Use History: None Reported Medications and Allergies Home Medications Medication Instructions Recorded Confirmed Type Albuterol Inhaler [Ventolin Hfa 2 puff INHALATION RT-QID PRN #0 10/01/16 Rx Inhaler] puff Citalopram Hydrobromide [CeleXA] 20 mg PO DAILY #30 tab 10/01/16 12/27/23 Rx Apixaban [Eliquis] 5 mg PO BID 03/11/23 12/27/23 History Celecoxib [CeleBREX] 100 mg PO DAILY 03/11/23 12/27/23 History Furosemide [Lasix] 20 mg PO BID 03/11/23 12/27/23 History Metoprolol Succinate (ER) [Toprol 50 mg PO DAILY 03/11/23 12/27/23 History XL] predniSONE 5 mg PO DAILY 03/11/23 12/27/23 History Cholecalciferol [Vitamin D3 (25 25 mcg PO DAILY 12/27/23 12/27/23 History Mcg = 1000 Iu)] Cyanocobalamin [Vitamin B-12] 500 mcg PO DAILY 12/27/23 12/27/23 History Ipratropium-Albuterol Nebulize 3 ml INHALATION RT-QID PRN 12/27/23 12/27/23 History [Duoneb 0.5 mg-3 mg/3 ml Soln] Terbinafine [LamISIL] 250 mg PO DAILY 12/27/23 12/27/23 History Tirzepatide [Mounjaro] 2.5 mg SQ MO 12/27/23 12/27/23 History Allergies Allergy/AdvReac Type Severity Reaction Status Date / Time hydrocodone AdvReac Nightmares Verified 12/27/23 14:28 Physical Exam Vitals: Vital Signs Temp Pulse Pulse Resp BP BP Pulse Ox 12/27/23 20:00 76 19 12/27/23 19:43 96 12/27/23 19:39 98.8 F 76 16 128/57 96 12/27/23 19:33 90 12/27/23 16:32 98.2 F 90 18 119/56 96 12/27/23 16:00 85 15 101/84 93 L 12/27/23 15:00 73 16 122/84 94 L 12/27/23 14:51 77 12/27/23 14:35 75 12/27/23 14:00 68 18 120/60 93 L 12/27/23 12:24 98.9 F 78 24 111/70 92 L Intake and Output 12/27/23 12/27/23 12/28/23 14:59 22:59 06:59 Intake Total 480 Balance 480 Intake: Oral 480 Other: # Voids 1 Weight 112.491 kg 112.491 kg GENERAL EXAM: Alert, 68-year-old obese white female, setting up her CPAP unit at the bedside, comfortable in no apparent distress. HEAD: Normocephalic and atraumatic EYES: Normal reaction of pupils, equal size. NOSE: Clear with pink turbinates. THROAT: No erythema or exudates. NECK: No masses, no JVD. CHEST: No chest wall deformity. LUNGS: Equal air entry with expiratory wheezes heard posteriorly and throughout, on 3 L/min nasal cannula, no conversational dyspnea or accessory muscle use.. CVS: S1 and S2 normal with no audible murmur, regular rhythm. No extra heart sounds ABDOMEN: No hepatosplenomegaly, active bowel sounds, no guarding or rigidity. SPINE: No scoliosis or deformity SKIN: No rashes CENTRAL NERVOUS SYSTEM: No focal deficits, tone is normal in all 4 extremities. EXTREMITIES: There is no peripheral edema, clubbing, or cyanosis. Peripheral pulses are intact. Results - Laboratory Findings CBC and BMP: 12/27/23 13:06 12/27/23 13:06 PT/INR, D-dimer PT 10.2 sec (10.0-12.5) 12/27/23 13:06 INR 0.9 (<1.2) 12/27/23 13:06 Abnormal lab findings: Abnormal Labs 12/27/23 12/27/23 13:06 13:06 WBC 13.3 H MCHC 30.6 L Neutrophils # 11.4 H Carbon Dioxide 35 H Creatinine 0.49 L - Diagnostic Findings Chest x-ray: image reviewed Assessment and Plan Assessment: Acute on chronic hypoxemic respiratory failure, secondary to acute COPD exacerbation. Chest x-ray does not show any focal infiltrates or evidence of pneumonia. Negative for influenza, RSV, COVID. Acute leukocytosis Severe chronic obstructive pulmonary disease, with an FEV1 38% of predicted, maintained on a combination of Trelegy Ellipta, albuterol rescue inhaler, oral prednisone 5 mg daily, and is also oxygen dependent Chronic hypoxemic respiratory failure, secondary to above Chronic ongoing tobacco dependence, smokes approximately 3 cigarettes/day History of pulmonary embolism, anticoagulated on Eliquis Obstructive sleep apnea, with home CPAP unit Obesity, with a BMI of 38.8 kg/m, currently on Mounjaro History of diabetes mellitus type 2 and prednisone induced hyperglycemia Chronic back pain Plan: Patient's medications, labs, chest x-ray reviewed Continue supplemental oxygen to maintain oxygen saturation above 90%. Will start the patient on a combination of bronchodilators, Symbicort inhaler, and IV Solu-Medrol Patient is empirically covered on Augmentin Check procalcitonin level Utilize home CPAP unit at night Cardiac medications, including Eliquis, have been restarted We will continue to follow I have personally seen and examined the patient, performed the documentation and the assessment and plan as written. Number of minutes spent on the visit:20 Time with Patient: Greater than 30
[2023-12-28] MEDS: ACETAMINOPHEN TAB 325 MG TAB PO PRN (06:52)
[2023-12-28] MEDS: SYMBICORT 160-4.5 MCG INHALER INHALATION SCH (08:33)
[2023-12-28] MEDS: CYANOCOBALAMIN 500 MCG TAB PO SCH (08:59)
[2023-12-28] MEDS: MELOXICAM 7.5 MG TAB PO SCH (08:59)
[2023-12-28] MEDS: CHOLECALCIFEROL 25 MCG (1000 IU) TABLET PO SCH (09:00)
[2023-12-28] MEDS: METOPROLOL SUCCINATE (ER) 50 MG TAB.ER.24H PO SCH (09:00)
[2023-12-28] MEDS: CITALOPRAM HYDROBROMIDE 20 MG TAB PO SCH (09:00)
--- NOTE | 2023-12-28 11:35 | P.CNPUL ---
History of Present Illness Consult date: 12/28/23 Reason for consult: dyspnea, COPD History of present illness: This is a 68-year-old female patient with known history of COPD maintained on Trelegy Ellipta on outpatient basis. Patient also has obstructive sleep apnea maintained on CPAP therapy at a pressure of 10 cm of water. She has previous history of pulmonary embolism maintained on anticoagulation with Eliquis. The patient presented with worsening shortness of breath, cough chest tightness and wheezing. The chest x-ray showed no acute pulmonary infiltrates. The viral panel including RSV COVID-19 and influenza was negative. White cell count of 13.3 and hemoglobin was at 12.6 with a platelet count of 287. Electrolytes are all within normal limits. Troponins are negative. She has a congested cough and the patient was started on IV Solu-Medrol. She is also on DuoNeb updrafts. She was started on empiric antibiotic coverage with Augmentin. No chest pain. Limited edema lower extremities bilaterally. No history of any calf pain or tenderness. No altered mentation. She is resting comfortably at this point in time. Review of Systems CONSTITUTIONAL: Denies any recent significant weight loss or weight gain. EYES: Denies change in vision. EARS, NOSE, MOUTH, THROAT: Denies headaches, denies sore throat. CARDIOVASCULAR: Denies chest pain, palpitations or syncopal episodes. RESPIRATORY: See HPI GASTROINTESTINAL: Denies change in appetite, abdominal pain, nausea and vomiting, or diarrhea GENITOURINARY: Denies hematuria, denies infections. MUSKULOSKELETAL: Denies pain, denies swelling. INTEGUMENTARY: Denies rash, denies eczema. NEUROLOGICAL: Denies recent memory loss, no recent seizure activity. PSYCHIATRIC: Denies anxiety, denies depression. HEMATOLOGIC/LYMPHATIC: Denies anemia, denies enlarged lymph node Past Medical History Past Medical History: Heart Failure, COPD, GERD/Reflux, Hypertension, Osteoarthritis (OA), Pulmonary Embolus (PE), Sleep Apnea/CPAP/BIPAP Additional Past Medical History / Comment(s): just finished antibiotic for recent UTI History of Any Multi-Drug Resistant Organisms: None Reported Past Surgical History: Cholecystectomy, Joint Replacement Additional Past Surgical History / Comment(s): Bilateral knee replacement Past Anesthesia/Blood Transfusion Reactions: No Reported Reaction Past Psychological History: Anxiety Smoking Status: Current every day smoker Past Alcohol Use History: Rare Past Drug Use History: None Reported Medications and Allergies Home Medications Medication Instructions Recorded Confirmed Type Albuterol Inhaler [Ventolin Hfa 2 puff INHALATION RT-QID PRN #0 10/01/16 12/27/23 Rx Inhaler] puff Citalopram Hydrobromide [CeleXA] 20 mg PO DAILY #30 tab 10/01/16 12/27/23 Rx Apixaban [Eliquis] 5 mg PO BID 03/11/23 12/27/23 History Celecoxib [CeleBREX] 100 mg PO DAILY 03/11/23 12/27/23 History Furosemide [Lasix] 20 mg PO BID 03/11/23 12/27/23 History Metoprolol Succinate (ER) [Toprol 50 mg PO DAILY 03/11/23 12/27/23 History XL] predniSONE 5 mg PO DAILY 03/11/23 12/27/23 History Cholecalciferol [Vitamin D3 (25 25 mcg PO DAILY 12/27/23 12/27/23 History Mcg = 1000 Iu)] Cyanocobalamin [Vitamin B-12] 500 mcg PO DAILY 12/27/23 12/27/23 History Ipratropium-Albuterol Nebulize 3 ml INHALATION RT-QID PRN 12/27/23 12/27/23 History [Duoneb 0.5 mg-3 mg/3 ml Soln] Terbinafine [LamISIL] 250 mg PO DAILY 12/27/23 12/27/23 History Tirzepatide [Mounjaro] 2.5 mg SQ MO 12/27/23 12/27/23 History Allergies Allergy/AdvReac Type Severity Reaction Status Date / Time hydrocodone AdvReac Nightmares Verified 12/27/23 14:28 Physical Exam Vitals: Vital Signs Temp Pulse Pulse Resp BP BP Pulse Ox 12/28/23 08:45 84 12/28/23 08:33 79 95 12/28/23 07:40 97.5 F L 85 17 143/74 94 L 12/28/23 02:00 97.5 F L 93 19 142/71 90 L 12/27/23 20:00 76 19 12/27/23 19:43 96 12/27/23 19:39 98.8 F 76 16 128/57 96 12/27/23 19:33 90 12/27/23 16:32 98.2 F 90 18 119/56 96 12/27/23 16:00 85 15 101/84 93 L 12/27/23 15:00 73 16 122/84 94 L 12/27/23 14:51 77 12/27/23 14:35 75 12/27/23 14:00 68 18 120/60 93 L 12/27/23 12:24 98.9 F 78 24 111/70 92 L Intake and Output 12/27/23 12/28/23 12/28/23 22:59 06:59 14:59 Intake Total 480 10 Balance 480 10 Intake: IV 10 Invasive Line 1 10 Oral 480 Other: # Voids 1 2 Weight 112.491 kg GENERAL EXAM: Alert, 68-year-old obese white female, setting up her CPAP unit at the bedside, comfortable in no apparent distress. No signs of any throat narcosis and the patient is alert and oriented x 3. HEAD: Normocephalic and atraumatic EYES: Normal reaction of pupils, equal size. NOSE: Clear with pink turbinates. THROAT: No erythema or exudates. NECK: No masses, no JVD. CHEST: No chest wall deformity. LUNGS: Equal air entry with expiratory wheezes heard posteriorly and throughout, on 3 L/min nasal cannula, no conversational dyspnea or accessory muscle use.. CVS: S1 and S2 normal with no audible murmur, regular rhythm. No extra heart sounds ABDOMEN: No hepatosplenomegaly, active bowel sounds, no guarding or rigidity. SPINE: No scoliosis or deformity SKIN: No rashes CENTRAL NERVOUS SYSTEM: No focal deficits, tone is normal in all 4 extremities. EXTREMITIES: There is no peripheral edema, clubbing, or cyanosis. Peripheral pulses are intact. Results - Laboratory Findings CBC and BMP: 12/27/23 13:06 12/27/23 13:06 PT/INR, D-dimer PT 10.2 sec (10.0-12.5) 12/27/23 13:06 INR 0.9 (<1.2) 12/27/23 13:06 Abnormal lab findings: Abnormal Labs 12/27/23 12/27/23 13:06 13:06 WBC 13.3 H MCHC 30.6 L Neutrophils # 11.4 H Carbon Dioxide 35 H Creatinine 0.49 L - Diagnostic Findings Chest x-ray: image reviewed Assessment and Plan Plan: Acute on chronic dyspnea secondary to COPD exacerbation Chest x-ray does not show any focal infiltrates or evidence of pneumonia. Negative for influenza, RSV, COVID. Chronic hypoxic respiratory failure maintained on O2 between 2 and 3 L/min nasal cannula Acute leukocytosis, no evidence of any infection at this point in time. Chest x-ray is free of any acute pulmonary infiltrates and a viral panel has been n egative. Severe chronic obstructive pulmonary disease, with an FEV1 38% of predicted, maintained on a combination of Trelegy Ellipta, albuterol rescue inhaler, oral prednisone 5 mg daily, and is also oxygen dependent Chronic ongoing tobacco dependence, smokes approximately 3 cigarettes/day History of pulmonary embolism, anticoagulated on Eliquis Obstructive sleep apnea, with home CPAP unit, maintained on CPAP pressure of 10 cm of water along with O2 at 3 L Obesity, with a BMI of 38.8 kg/m, currently on Mounjaro History of diabetes mellitus type 2 and prednisone induced hyperglycemia Chronic back pain Obesity BMI of 38.8 Plan: Titrate oxygen flow to maintain saturation above 90% Will start the patient on a combination of bronchodilators, Symbicort inhaler, and IV Solu-Medrol, and the patient should be able to bring her Trelegy Ellipta from home and Symbicort can be replaced with Trelegy once the medication is available Patient is empirically covered on Augmentin Check procalcitonin level, results are still pending for now Utilize home CPAP unit at night, the pressure of 10 along with O2 at 3 L Resume home medications including Eliquis We will continue to follow
[2023-12-28] MEDS: TERBINAFINE 250 MG TAB PO SCH (12:10)
[2023-12-28] MEDS: PANTOPRAZOLE 40 MG TABLET PO SCH (16:09)
[2023-12-29] MEDS ORDERED: ONDANSETRON 4 MG/2 ML VIAL IVP PRN (11:56)
[2023-12-29] MEDS: ARTIFICIAL TEARS-HYPROMELLOSE DROPS 15 ML BTL BOTH EYES PRN (12:48)
[2023-12-29] MEDS: MAGNESIUM SULFATE-D5W PMX 1 GM in DEXTROSE/WATER 1 100ML.BAG IVPB ONE (12:49)
--- NOTE | 2023-12-29 13:27 | P.PN ---
Subjective Progress Note Date: 12/29/23 This is a 68-year-old female patient with known history of COPD maintained on Trelegy Ellipta on outpatient basis. Patient also has obstructive sleep apnea maintained on CPAP therapy at a pressure of 10 cm of water. She has previous history of pulmonary embolism maintained on anticoagulation with Eliquis. The patient presented with worsening shortness of breath, cough chest tightness and wheezing. The chest x-ray showed no acute pulmonary infiltrates. The viral panel including RSV COVID-19 and influenza was negative. White cell count of 13.3 and hemoglobin was at 12.6 with a platelet count of 287. Electrolytes are all within normal limits. Troponins are negative. She has a congested cough and the patient was started on IV Solu-Medrol. She is also on DuoNeb updrafts. She was started on empiric antibiotic coverage with Augmentin. No chest pain. Limited edema lower extremities bilaterally. No history of any calf pain or tenderness. No altered mentation. She is resting comfortably at this point in time. On today's evaluation of 12/29/2023, I am seeing the patient for a follow-up. The patient is feeling less short of breath less bronchospastic and wheezy compared to yesterday. No chest pain. She remains on bronchodilators and steroids. She is also on empiric antibiotic coverage with Augmentin. No other significant events since yesterday. Utilizing her CPAP overnight. Her procalcitonin level is at 0.04. Objective - Vital Signs Vital signs: Vital Signs Temp 97.9 F 12/29/23 07:00 Pulse 74 12/29/23 08:18 Resp 20 12/29/23 08:00 BP 112/69 12/29/23 07:00 Pulse Ox 96 12/29/23 07:58 FiO2 Intake & Output 12/28/23 12/29/23 12/29/23 18:59 06:59 18:59 Intake Total 100 118 Balance 100 118 Intake: Oral 100 118 Other: # Voids 3 1 - Exam GENERAL EXAM: Alert, 68-year-old obese white female, setting up her CPAP unit at the bedside, comfortable in no apparent distress. No signs of any throat narcosis and the patient is alert and oriented x 3. HEAD: Normocephalic and atraumatic EYES: Normal reaction of pupils, equal size. NOSE: Clear with pink turbinates. THROAT: No erythema or exudates. NECK: No masses, no JVD. CHEST: No chest wall deformity. LUNGS: Equal air entry with expiratory wheezes heard posteriorly and throughout, on 3 L/min nasal cannula, no conversational dyspnea or accessory muscle use.. CVS: S1 and S2 normal with no audible murmur, regular rhythm. No extra heart sounds ABDOMEN: No hepatosplenomegaly, active bowel sounds, no guarding or rigidity. SPINE: No scoliosis or deformity SKIN: No rashes CENTRAL NERVOUS SYSTEM: No focal deficits, tone is normal in all 4 extremities. EXTREMITIES: There is no peripheral edema, clubbing, or cyanosis. Peripheral pulses are intact. - Labs CBC & Chem 7: 12/27/23 13:06 12/27/23 13:06 Labs: Microbiology - Last 24 Hours (Table) 12/27/23 13:06 Blood Culture - Preliminary Blood Assessment and Plan Plan: Acute on chronic dyspnea secondary to COPD exacerbation Chest x-ray does not show any focal infiltrates or evidence of pneumonia. Negative for influenza, RSV, COVID. Chronic hypoxic respiratory failure maintained on O2 between 2 and 3 L/min nasal cannula Acute leukocytosis, no evidence of any infection at this point in time. Chest x-ray is free of any acute pulmonary infiltrates and a viral panel has been negative. Severe chronic obstructive pulmonary disease, with an FEV1 38% of predicted, maintained on a combination of Trelegy Ellipta, albuterol rescue inhaler, oral prednisone 5 mg daily, and is also oxygen dependent Chronic ongoing tobacco dependence, smokes approximately 3 cigarettes/day History of pulmonary embolism, anticoagulated on Eliquis Obstructive sleep apnea, with home CPAP unit, maintained on CPAP pressure of 10 cm of water along with O2 at 3 L Obesity, with a BMI of 38.8 kg/m, currently on Mounjaro History of diabetes mellitus type 2 and prednisone induced hyperglycemia Chronic back pain Obesity BMI of 38.8 Plan: Clinically improving. Procalcitonin level is low. Less short of breath compared to yesterday. Will continue the same treatment for now. Titrate oxygen flow to maintain saturation above 90% Will start the patient on a combination of bronchodilators, Symbicort inhaler, and IV Solu-Medrol, and the patient should be able to bring her Trelegy Ellipta from home and Symbicort can be replaced with Trelegy once the medication is available Patient is empirically covered on Augmentin Check procalcitonin level, results are still pending for now Utilize home CPAP unit at night, the pressure of 10 along with O2 at 3 L Resume home medications including Eliquis We will continue to follow
[2023-12-29] MEDS ORDERED: DEXTROSE 50% SYRINGE 50 ML IVP PRN ×2 (14:56)
--- NOTE | 2023-12-29 15:00 | P.PN ---
Subjective Progress Note Date: 12/29/23 This is a 68-year-old female admitted with acute COPD exacerbation, maintained on nebulized bronchodilators, IV steroids, Symbicort and empiric Augmentin. Used her CPAP last night. significant clinical improvement. Maintaining O2 sats in the 90s on 3 L nasal cannula in a patient who wears between 2 to 3 L nasal cannula at home. Denies chest pain, palpitations or increase in shortness of breath. Reports productive cough with pale yellow sputum and headache with some mild nausea. Afebrile. Procalcitonin 0.04. Objective - Vital Signs Vital signs: Vital Signs Temp 98.4 F 12/29/23 14:34 Pulse 71 12/29/23 14:34 Resp 16 12/29/23 14:34 BP 99/54 12/29/23 14:34 Pulse Ox 96 12/29/23 14:34 FiO2 Intake & Output 12/28/23 12/29/23 12/29/23 18:59 06:59 18:59 Intake Total 100 236 Balance 100 236 Intake: Oral 100 236 Other: # Voids 3 1 1 # Bowel Movements 1 - Exam GENERAL: This is a 68-year-old in no apparent distress at the time of examination. Pleasant and cooperative. HEENT: Head is atraumatic, normocephalic. Pupils are equal, round, and reactive to light. Sclerae anicteric. Conjunctivae are clear. Mucus membranes of the mouth are moist. Neck is supple. RESPIRATORY: Unlabored, equal air entry, expiratory wheezing scattered throughout. CARDIOVASCULAR: irregular rate and rhythm. GASTROINTESTINAL: No distention noted. Abdomen soft and round. Normal active bowel sounds auscultated x 4 quadrants. No pain or tenderness noted upon palpation. INTEGUMENTARY: No cyanosis. No jaundice. No rashes noted. No cellulitis noted. EXTREMITIES: 2+ peripheral pulses. No evidence of peripheral edema. No calf te nderness noted. NEUROLOGIC: Cranial nerves II-XII intact. PSYCHIATRIC: Awake, alert, and oriented X 3. Appropriate affect. Intact judgement and insight. - Labs CBC & Chem 7: 12/27/23 13:06 12/27/23 13:06 Labs: Microbiology - Last 24 Hours (Table) 12/27/23 13:06 Blood Culture - Preliminary Blood Assessment and Plan Assessment: Acute COPD exacerbation Acute leukocytosis Acute on chronic hypoxic respiratory failure wears between 2 and 3 L nasal cannula O2 at home Ongoing nicotine dependence Diabetes mellitus Morbid obesity, BMI 39 Obstructive sleep apnea wears CPAP Gastroesophageal reflux disease Hypertension Plan: Continue on current medication regimen ,monitoring and symptomatic treatment. Aggressive pulmonary toileting with nebulized bronchodilators, Symbicort, empiric Augmentin, IV steroids. Smoking sensation reinforced. IV magnesium ordered for headache. Follow closely with pulmonary. The impression and plan of care has been dictated as directed. : I performed a history and examination of this patient, discussed the same with the dictator. I agree with the dictator's note ,documented as a scribe. Any additional findings or plans will be noted.
[2023-12-29 16:29] LABS: Glucose,Whole Blood 137 mg/dL (70-110)
[2023-12-29] MEDS: INSULIN DETEMIR (LEVEMIR) 100 UNIT/ML SYR SQ SCH (17:03)
[2023-12-29 17:41] LABS: Glucose,Whole Blood 145 mg/dL (70-110)
[2023-12-29] MEDS: INSULIN ASPART (NovoLOG) 100 UNIT/ML VIAL SQ SCH (19:01)
[2023-12-29 20:37] LABS: Glucose,Whole Blood 254 mg/dL (70-110)
[2023-12-30 06:14] LABS: Glucose,Whole Blood 151 mg/dL (70-110)
[2023-12-30 08:32] LABS: Basophils # (A) 0.03 X 10*3/uL (0.00-0.10); Basophils % (A) 0.2 %; Eosinophils # (A) 0 X 10*3/uL (0.04-0.35); Eosinophils % (A) 0 %; HCT 41.7 % (37.2-46.3); HGB 12.4 g/dL (12.0-15.0); Lymphocytes # (A) 0.73 X 10*3/uL (0.90-5.00); Lymphocytes % (A) 4.2 %; MCH 26.2 pg (27.0-32.0); MCHC 29.7 g/dL (32.0-37.0); MCV 88.2 FL (80.0-97.0); Mean Platelet Volume 9.7 FL (9.5-12.2); Monocytes # (A) 0.35 X 10*3/uL (0.20-1.00); NRBC Per 100 WBC 0 X 10*3/uL (0.00-0.01); Neutrophils # (A) 16.08 X 10*3/uL (1.80-7.70); Neutrophils % (A) 92.2 %; Platelet Count 344 X 10*3/uL (140-440); RBC 4.73 X 10*6/uL (4.10-5.20); RDW 14.8 % (11.5-14.5); WBC 17.44 X 10*3/uL (4.50-10.00)
[2023-12-30 11:41] LABS: BUN/Creat Ratio 33.43 Ratio (12.00-20.00); Blood Urea Nitrogen 23.4 mg/dL (9.0-27.0); Calcium 9.5 mg/dL (8.7-10.3); Carbon Dioxide 34.3 mmol/L (21.6-31.8); Chloride 95 mmol/L (96-109); Glucose 143 mg/dL (70-110); Potassium 4.8 mmol/L (3.5-5.5); Sodium 139 mmol/L (135-145)
[2023-12-30 12:06] LABS: Glucose,Whole Blood 123 mg/dL (70-110)
[2023-12-30 15:09] VITALS: BP 118/73; PULSE 73; RESP 20; TEMP 97.6
--- NOTE | 2023-12-30 18:27 | P.PN ---
Subjective Progress Note Date: 12/30/23 This is a 68-year-old female patient with known history of COPD maintained on Trelegy Ellipta on outpatient basis. Patient also has obstructive sleep apnea maintained on CPAP therapy at a pressure of 10 cm of water. She has previous history of pulmonary embolism maintained on anticoagulation with Eliquis. The patient presented with worsening shortness of breath, cough chest tightness and wheezing. The chest x-ray showed no acute pulmonary infiltrates. The viral panel including RSV COVID-19 and influenza was negative. White cell count of 13.3 and hemoglobin was at 12.6 with a platelet count of 287. Electrolytes are all within normal limits. Troponins are negative. She has a congested cough and the patient was started on IV Solu-Medrol. She is also on DuoNeb updrafts. She was started on empiric antibiotic coverage with Augmentin. No chest pain. Limited edema lower extremities bilaterally. No history of any calf pain or tenderness. No altered mentation. She is resting comfortably at this point in time. On today's evaluation of 12/29/2023, I am seeing the patient for a follow-up. The patient is feeling less short of breath less bronchospastic and wheezy compared to yesterday. No chest pain. She remains on bronchodilators and steroids. She is also on empiric antibiotic coverage with Augmentin. No other significant events since yesterday. Utilizing her CPAP overnight. Her procalcitonin level is at 0.04. 12/30/2023, the patient has no new complaints. Presents back to his baseline. Much improved. Currently on oxygen. Tolerating her CPAP overnight. No other significant events. Ready to go home. Objective - Vital Signs Vital signs: Vital Signs Temp 97.6 F 12/30/23 14:38 Pulse 73 12/30/23 14:38 Resp 20 12/30/23 14:38 BP 118/73 12/30/23 14:38 Pulse Ox 93 L 12/30/23 07:32 FiO2 Intake & Output 12/29/23 12/30/23 12/30/23 18:59 06:59 18:59 Intake Total 476 240 Output Total 200 Balance 476 40 Intake: Oral 476 240 Output: Urine 200 Other: Voiding Method Toilet # Voids 1 2 # Bowel Movements 1 1 - Exam GENERAL EXAM: Alert, 68-year-old obese white female, setting up her CPAP unit at the bedside, comfortable in no apparent distress. No signs of any throat narcosis and the patient is alert and oriented x 3. HEAD: Normocephalic and atraumatic EYES: Normal reaction of pupils, equal size. NOSE: Clear with pink turbinates. THROAT: No erythema or exudates. NECK: No masses, no JVD. CHEST: No chest wall deformity. LUNGS: Equal air entry with expiratory wheezes heard posteriorly and throughout, on 3 L/min nasal cannula, no conversational dyspnea or accessory muscle use.. CVS: S1 and S2 normal with no audible murmur, regular rhythm. No extra heart sounds ABDOMEN: No hepatosplenomegaly, active bowel sounds, no guarding or rigidity. SPINE: No scoliosis or deformity SKIN: No rashes CENTRAL NERVOUS SYSTEM: No focal deficits, tone is normal in all 4 extremities. EXTREMITIES: There is no peripheral edema, clubbing, or cyanosis. Peripheral pulses are intact. - Labs CBC & Chem 7: 12/30/23 06:03 12/30/23 06:03 Labs: Abnormal Lab Results - Last 24 Hours (Table) 12/29/23 12/29/23 12/29/23 Range/Units 16:27 17:40 20:36 WBC (4.50-10.00) X 10*3/uL MCH (27.0-32.0) pg MCHC (32.0-37.0) g/dL RDW (11.5-14.5) % Immature Gran # (0.00-0.04) X 10*3/uL Neutrophils # (1.80-7.70) X 10*3/uL Lymphocytes # (0.90-5.00) X 10*3/uL Eosinophils # (0.04-0.35) X 10*3/uL Chloride (96-109) mmol/L Carbon Dioxide (21.6-31.8) mmol/L BUN/Creatinine Ratio (12.00-20.00) Ratio Glucose (70-110) mg/dL POC Glucose (mg/dL) 137 H 145 H 254 H (70-110) mg/dL 12/30/23 12/30/23 12/30/23 Range/Units 06:03 06:03 06:13 WBC 17.44 H (4.50-10.00) X 10*3/uL MCH 26.2 L (27.0-32.0) pg MCHC 29.7 L (32.0-37.0) g/dL RDW 14.8 H (11.5-14.5) % Immature Gran # 0.25 H (0.00-0.04) X 10*3/uL Neutrophils # 16.08 H (1.80-7.70) X 10*3/uL Lymphocytes # 0.73 L (0.90-5.00) X 10*3/uL Eosinophils # 0 L (0.04-0.35) X 10*3/uL Chloride 95 L (96-109) mmol/L Carbon Dioxide 34.3 H (21.6-31.8) mmol/L BUN/Creatinine Ratio 33.43 H (12.00-20.00) Ratio Glucose 143 H (70-110) mg/dL POC Glucose (mg/dL) 151 H (70-110) mg/dL 12/30/23 Range/Units 12:05 WBC (4.50-10.00) X 10*3/uL MCH (27.0-32.0) pg MCHC (32.0-37.0) g/dL RDW (11.5-14.5) % Immature Gran # (0.00-0.04) X 10*3/uL Neutrophils # (1.80-7.70) X 10*3/uL Lymphocytes # (0.90-5.00) X 10*3/uL Eosinophils # (0.04-0.35) X 10*3/uL Chloride (96-109) mmol/L Carbon Dioxide (21.6-31.8) mmol/L BUN/Creatinine Ratio (12.00-20.00) Ratio Glucose (70-110) mg/dL POC Glucose (mg/dL) 123 H (70-110) mg/dL Microbiology - Last 24 Hours (Table) 12/27/23 13:06 Blood Culture - Preliminary Blood Assessment and Plan Plan: Acute on chronic dyspnea secondary to COPD exacerbation Chest x-ray does not show any focal infiltrates or evidence of pneumonia. Negative for influenza, RSV, COVID. Chronic hypoxic respiratory failure maintained on O2 between 2 and 3 L/min nasal cannula Acute leukocytosis, no evidence of any infection at this point in time. Chest x -ray is free of any acute pulmonary infiltrates and a viral panel has been negative. Severe chronic obstructive pulmonary disease, with an FEV1 38% of predicted, maintained on a combination of Trelegy Ellipta, albuterol rescue inhaler, oral prednisone 5 mg daily, and is also oxygen dependent Chronic ongoing tobacco dependence, smokes approximately 3 cigarettes/day History of pulmonary embolism, anticoagulated on Eliquis Obstructive sleep apnea, with home CPAP unit, maintained on CPAP pressure of 10 cm of water along with O2 at 3 L Obesity, with a BMI of 38.8 kg/m, currently on Mounjaro History of diabetes mellitus type 2 and prednisone induced hyperglycemia Chronic back pain Obesity BMI of 38.8 Plan: Clinically improved and the patient is back to baseline and the patient will be discharged home on Trelegy Ellipta 1 puff a day, DuoNeb updrafts 4 times a day, CPAP therapy at a pressure of 10 cm of water along with O2 at 3 L nasal cannula. Prednisone burst taper to be given at the time of discharge. Follow-up on an outpatient basis.
--- NOTE | 2023-12-31 17:45 | P.DS ---
Providers Date of admission: 12/27/23 14:33 Expected date of discharge: 12/30/23 Attending physician: Devante Loja Consults: 12/27/23 17:06 Consult Physician Routine Consulting Provider: Sneha Hall Consult Reason/Comments: COPD exacerbation Do you want consulting provider notified?: Yes Primary care physician: Devante Loja [facility] Course: Final Diagnosis: Acute COPD exacerbation Acute leukocytosis Acute on chronic hypoxic respiratory failure wears between 2 and 3 L nasal cannula O2 at home Ongoing nicotine dependence Diabetes mellitus Morbid obesity, BMI 39 Obstructive sleep apnea wears CPAP Gastroesophageal reflux disease Hypertension Hospital course:This is a 68-year-old female admitted with acute COPD exacerbation, maintained on nebulized bronchodilators, IV steroids, Symbicort and empiric Augmentin. Used her CPAP last night. significant clinical improvement. Maintaining O2 sats in the 90s on 3 L nasal cannula in a patient who wears between 2 to 3 L nasal cannula at home. Denies chest pain, palpitations or increase in shortness of breath. Reports productive cough with pale yellow sputum and headache with some mild nausea. Afebrile. Procalcitonin 0.04. Aggressive pulmonary toileting with nebulized bronchodilators, Symbicort, empiric Augmentin, IV steroids. Smoking sensation reinforced. IV magnesium ordered for headache. Follow closely with pulmonary. Significant clinical improvement. Appears back at baseline ,minimal expiratory wheeze. Denies chest pain, palpitations or increase in shortness of breath. Patient will be discharged home today in a stable condition with guarded prognosis. The impression and plan of care has been dictated as directed. : I performed a history and examination of this patient, discussed the same with the dictator. I agree with the dictator's note ,documented as a scribe. Any additional findings or plans will be noted. Patient Condition at Discharge: Stable Plan - Discharge Summary New Discharge Prescriptions: New predniSONE 10 mg PO DIRECTED #30 tab Artificial Tears-Hypromellose [Artificial Tear Drops] 1 drops BOTH EYES TID PRN ml PRN Reason: Dry Eye(S) Continue Albuterol Inhaler [Ventolin Hfa Inhaler] 2 puff INHALATION RT-QID PRN #0 puff PRN Reason: Shortness Of Breath Or Wheezing Citalopram Hydrobromide [CeleXA] 20 mg PO DAILY #30 tab Metoprolol Succinate (ER) [Toprol XL] 50 mg PO DAILY Furosemide [Lasix] 20 mg PO BID Celecoxib [CeleBREX] 100 mg PO DAILY Tirzepatide [Mounjaro] 2.5 mg SQ MO Ipratropium-Albuterol Nebulize [Duoneb 0.5 mg-3 mg/3 ml Soln] 3 ml INHALATION RT-QID PRN PRN Reason: Shortness Of Breath Terbinafine [LamISIL] 250 mg PO DAILY predniSONE 5 mg PO DAILY #0 Apixaban [Eliquis] 5 mg PO BID Cyanocobalamin [Vitamin B-12] 500 mcg PO DAILY Cholecalciferol [Vitamin D3 (25 Mcg = 1000 Iu)] 25 mcg PO DAILY Discharge Medication List Albuterol Inhaler [Ventolin Hfa Inhaler] 2 puff INHALATION RT-QID PRN #0 puff 10/01/16 [Rx] Citalopram Hydrobromide [CeleXA] 20 mg PO DAILY #30 tab 10/01/16 [Rx] Apixaban [Eliquis] 5 mg PO BID 03/11/23 [History] Celecoxib [CeleBREX] 100 mg PO DAILY 03/11/23 [History] Furosemide [Lasix] 20 mg PO BID 03/11/23 [History] Metoprolol Succinate (ER) [Toprol XL] 50 mg PO DAILY 03/11/23 [History] Cholecalciferol [Vitamin D3 (25 Mcg = 1000 Iu)] 25 mcg PO DAILY 12/27/23 [History] Cyanocobalamin [Vitamin B-12] 500 mcg PO DAILY 12/27/23 [History] Ipratropium-Albuterol Nebulize [Duoneb 0.5 mg-3 mg/3 ml Soln] 3 ml INHALATION RT-QID PRN 12/27/23 [History] Terbinafine [LamISIL] 250 mg PO DAILY 12/27/23 [History] Tirzepatide [Mounjaro] 2.5 mg SQ MO 12/27/23 [History] Artificial Tears-Hypromellose [Artificial Tear Drops] 1 drops BOTH EYES TID PRN ml 12/30/23 [Rx] predniSONE 5 mg PO DAILY #0 12/30/23 [Rx] predniSONE 10 mg PO DIRECTED #30 tab 12/30/23 [Rx] Follow up Appointment(s)/Referral(s): Devante Loja DO [Primary Care Provider] - 3 Days Discharge Disposition: HOME SELF-CARE
[2024-01-03] MEDS ORDERED: NON FORMULARY DRUG (Tirzepatide [Mounjaro] 2.5 MG/0.5 ML Pen.Injctr) SQ SCH (09:00)
== END 2023-12-30 15:22 | disposition home or self-care (01) ==
LOC: EC 12:16 → 6NMEDSUR 14:33
PROVIDERS: ADMIT Family Medicine; ATTEND Family Medicine
DX: J44.1 Chronic obstructive pulmonary disease with (acute) exacerbation (principal); J96.21 Acute and chronic respiratory failure with hypoxia; E11.9 Type 2 diabetes mellitus without complications; I11.0 Hypertensive heart disease with heart failure; I50.9 Heart failure, unspecified; Z99.81 Dependence on supplemental oxygen; F17.210 Nicotine dependence, cigarettes, uncomplicated; G47.33 Obstructive sleep apnea (adult) (pediatric); D72.829 Elevated white blood cell count, unspecified; E66.01 Morbid (severe) obesity due to excess calories; Z68.38 Body mass index [BMI] 38.0-38.9, adult; K21.9 Gastro-esophageal reflux disease without esophagitis; G89.29 Other chronic pain; M54.9 Dorsalgia, unspecified; Z11.52 Encounter for screening for COVID-19; Z11.59 Encounter for screening for other viral diseases; Z79.01 Long term (current) use of anticoagulants; Z79.1 Long term (current) use of non-steroidal anti-inflammatories (NSAID); Z79.85 Long-term (current) use of injectable non-insulin antidiabetic drugs; Z79.51 Long term (current) use of inhaled steroids; Z79.4 Long term (current) use of insulin; Z79.52 Long term (current) use of systemic steroids; Z79.899 Other long term (current) drug therapy; Z88.5 Allergy status to narcotic agent; Z86.711 Personal history of pulmonary embolism
CPT/HCPCS: 96376 ×4; 96365; 96375; 99285; 36415; 94660 ×2; 94640 ×7; 94760 ×3; 93005; 80053; 80048; 83605; 83735; 84484; 85025 ×2; 85610; 85730; 87040; 83036; 84145; 87636; 71046; G0378 ×4; J2930 ×4; J3475

== ENCOUNTER 2024-01-06 17:25 | Inpatient (IN) | payer MEDICARE ==
--- NOTE | 2024-01-06 18:05 | ED ---
SOB HPI - General Chief Complaint: Shortness of Breath Stated Complaint: sob Time Seen by Provider: 01/06/24 17:51 Source: patient, RN notes reviewed, old records reviewed Mode of arrival: ambulatory Limitations: no limitations - History of Present Illness Initial Comments: This is a 68-year-old female to the ER for evaluation of dyspnea severe shortnes s of breath here in the emergency department. Increasing exertional dyspnea and low oxygen levels at home. Patient awoke tonight with oxygen in the 60s. Patient has no fevers no chills no sick contacts no chest pain. MD Complaint: shortness of breath, cough, pain with inspiration, anxiety -: hour(s) (Woke with symptoms today) Severity: severe Severity scale (1-10): 10 Quality: aching Consistency: constant Improves With: nothing Worsens With: exertion, movement Known History Of: COPD, congestive heart failure Context: recent URI, recent illness Associated Symptoms: denies other symptoms - Related Data Home Medications Medication Instructions Recorded Confirmed Apixaban [Eliquis] 5 mg PO BID 03/11/23 01/06/24 Celecoxib [CeleBREX] 100 mg PO DAILY 03/11/23 01/06/24 Furosemide [Lasix] 20 mg PO BID 03/11/23 01/06/24 Metoprolol Succinate (ER) [Toprol 50 mg PO DAILY 03/11/23 01/06/24 XL] Cholecalciferol [Vitamin D3 (25 25 mcg PO DAILY 12/27/23 01/06/24 Mcg = 1000 Iu)] Cyanocobalamin [Vitamin B-12] 500 mcg PO DAILY 12/27/23 01/06/24 Ipratropium-Albuterol Nebulize 3 ml INHALATION RT-QID PRN 12/27/23 01/06/24 [Duoneb 0.5 mg-3 mg/3 ml Soln] Terbinafine [LamISIL] 250 mg PO DAILY 12/27/23 01/06/24 Tirzepatide [Mounjaro] 2.5 mg SQ MO 12/27/23 01/06/24 Artificial Tears-Hypromellose 1 drop BOTH EYES TID PRN 01/06/24 01/06/24 [Artificial Tear Drops] predniSONE See Taper PO DIRECTED 01/06/24 01/06/24 Previous Rx's Medication Instructions Recorded Albuterol Inhaler [Ventolin Hfa 2 puff INHALATION RT-QID PRN #0 10/01/16 Inhaler] puff Citalopram Hydrobromide [CeleXA] 20 mg PO DAILY #30 tab 10/01/16 Pantoprazole [Protonix] 40 mg PO AC-BRKFST #30 tab 01/11/24 guaiFENesin-DM 100-10MG/5ML 10 ml PO Q6HR PRN ml 01/11/24 [Robitussin DM] predniSONE 5 mg PO DIRECTED #0 01/11/24 predniSONE 10 mg PO DIRECTED #30 tab 01/11/24 Allergies Allergy/AdvReac Type Severity Reaction Status Date / Time hydrocodone AdvReac Nightmares Verified 01/06/24 20:04 Review of Systems ROS Statement: Those systems with pertinent positive or pertinent negative responses have been documented in the HPI. ROS Other: All systems not noted in ROS Statement are negative. Past Medical History Past Medical History: Heart Failure, COPD, GERD/Reflux, Hypertension, Osteoa rthritis (OA), Pulmonary Embolus (PE), Sleep Apnea/CPAP/BIPAP Additional Past Medical History / Comment(s): just finished antibiotic for recent UTI History of Any Multi-Drug Resistant Organisms: None Reported Past Surgical History: Cholecystectomy, Joint Replacement Additional Past Surgical History / Comment(s): Bilateral knee replacement Past Anesthesia/Blood Transfusion Reactions: No Reported Reaction Past Psychological History: Anxiety Smoking Status: Current every day smoker Past Alcohol Use History: Rare Past Drug Use History: None Reported General Exam Limitations: no limitations General appearance: alert, in no apparent distress, anxious, in distress Head exam: Present: atraumatic, normocephalic, normal inspection Eye exam: Present: normal appearance, PERRL, EOMI. Absent: scleral icterus, conjunctival injection, periorbital swelling ENT exam: Present: normal exam, mucous membranes moist Neck exam: Present: normal inspection. Absent: tenderness, meningismus, lymphadenopathy Respiratory exam: Present: normal lung sounds bilaterally. Absent: respiratory distress, wheezes, rales, rhonchi, stridor Cardiovascular Exam: Present: regular rate, normal rhythm, normal heart sounds. Absent: systolic murmur, diastolic murmur, rubs, gallop, clicks GI/Abdominal exam: Present: soft, normal bowel sounds. Absent: distended, tenderness, guarding, rebound, rigid Extremities exam: Present: normal inspection, full ROM, normal capillary refill. Absent: tenderness, pedal edema, joint swelling, calf tenderness Back exam: Present: normal inspection Neurological exam: Present: alert, oriented X3, CN II-XII intact Psychiatric exam: Present: normal affect, normal mood Skin exam: Present: warm, dry, intact, normal color. Absent: rash Course Vital Signs 01/06/24 01/06/24 01/06/24 17:37 18:31 18:40 Temperature 98.0 F Pulse Rate 86 75 80 Respiratory 18 18 Rate Blood Pressure 104/67 125/74 O2 Sat by Pulse 94 L 95 Oximetry 01/06/24 01/06/24 01/06/24 18:47 19:35 20:19 Temperature Pulse Rate 77 77 76 Respiratory 16 Rate Blood Pressure 104/55 O2 Sat by Pulse 95 Oximetry 01/06/24 01/06/24 20:25 20:33 Temperature Pulse Rate 75 71 Respiratory 16 Rate Blood Pressure 112/97 O2 Sat by Pulse 95 Oximetry - Reevaluation(s) Reevaluation #1: 01/06/24 18:38 Medical records reviewed Reevaluation #2: 01/06/24 18:38 Patient symptoms improved with supplemental oxygen Reevaluation #3: Patient informed of results questions answered Reevaluation #4: Was pt. sent in by a medical professional or institution (, PA, RADIO BOARD OPERATOR ANNOUNCER, urgent care, hospital, or detention...) When possible be specific @ -no Did you speak to anyone other than the patient for history (EMS, parent, family, police, friend...)? What history was obtained from this source @ -no Did you review nursing and triage notes (agree or disagree)? Why? @ -agree Are old charts reviewed (outside hosp., previous admission, EMS record, old EKG, old radiological studies, urgent care reports/EKG's, detention records)? Report findings @ -yes Differential Diagnosis (chest pain, altered mental status, abdominal pain women, abdominal pain men, vaginal bleeding, weakness, fever, dyspnea, syncope, headache, dizziness, GI bleed, back pain, seizure, CVA, palpatations, mental health, musculoskeletal)? @ -prior EKG interpreted by me (3pts min.). @ -yes X-rays interpreted by me (1pt min.). @ -yes negative for acute disease CT interpreted by me (1pt min.). @ -no U/S interpreted by me (1pt. min.). @ -no What testing was considered but not performed or refused? (CT, X-rays, U/S, labs)? Why? @ -none What meds were considered but not given or refused? Why? @ -none Did you discuss the management of the patient with other professionals (professionals i.e. , PA, RADIO BOARD OPERATOR ANNOUNCER, lab, RT, psych nurse, mental health social worker, security professionals, teacher, personal banking officer, case briefer)? Give summary @ -no Was smoking cessation discussed for >3mins.? @ -no Was critical care preformed (if so, how long)? @ -yes31 Were there social determinants of health that impacted care today? How? (Homelessness, low income, unemployed, alcoholism, drug addiction, transportation, low edu. Level, literacy, decrease access to med. care, skilled nursing, rehab)? @ -none Was there de-escalation of care discussed even if they declined (Discuss DNR or withdrawal of care, Hospice)? DNR status @ -no What co-morbidities impacted this encounter? (DM, HTN, Smoking, COPD, CAD, Cancer, CVA, ARF, Chemo, Hep., AIDS, mental health diagnosis, sleep apnea, morbid obesity)? @ -none Was patient admitted / discharged? Hospital course, mention meds given and route, prescriptions, significant lab abnormalities, going to OR and other per tinent info. @ - 68 male to ER for severe COPD significant COPD here in the ER. Patient will be admitted for further breathing treatments, monitoring of pulse ox and supportive care Admitted Undiagnosed new problem with uncertain prognosis? @ -no Drug Therapy requiring intensive monitoring for toxicity (Heparin, Nitro, Insulin, Cardizem)? @ -no Were any procedures done? @ -no Diagnosis/symptom? @ -Severe COPD respiratory failure and hypoxia Acute, or Chronic, or Acute on Chronic? @ -Acute Uncomplicated (without systemic symptoms) or Complicated (systemic symptoms)? @ -Complicated Side effects of treatment? @ -no Exacerbation, Progression, or Severe Exacerbation? @ -exacerbation Poses a threat to life or bodily function? How? (Chest pain, [place], [place], pneumonia, PE, COPD, DKA, ARF, appy, cholecystitis, CVA, Diverticulitis, Homicidal, Suicidal, threat to staff... and all critical care pts) @ -yes 01/12/24 21:52 Reevaluation #5: Patient informed of results and questions answered - Consultations Consultation #1: Spoke with admitting physician agrees to admit the patient Medical Decision Making - Medical Decision Making 68 male to ER for severe COPD significant COPD here in the ER. Patient will be admitted for further breathing treatments, monitoring of pulse ox and supportive care - Lab Data Result diagrams: 01/09/24 05:06 01/09/24 05:06 Lab Results 01/06/24 01/06/24 01/06/24 Range/Units 17:52 17:52 17:52 WBC 15.5 H (3.8-10.6) k/uL RBC 4.95 (3.80-5.40) m/uL Hgb 12.9 (11.4-16.0) gm/dL Hct 43.3 (34.0-46.0) % MCV 87.6 (80.0-100.0) fL MCH 26.2 (25.0-35.0) pg MCHC 29.9 L (31.0-37.0) g/dL RDW 15.3 (11.5-15.5) % Plt Count 299 (150-450) k/uL MPV 7.4 Neutrophils % 92 % Lymphocytes % 4 % Monocytes % 3 % Eosinophils % 1 % Basophils % 0 % Neutrophils # 14.2 H (1.3-7.7) k/uL Lymphocytes # 0.6 L (1.0-4.8) k/uL Monocytes # 0.4 (0-1.0) k/uL Eosinophils # 0.1 (0-0.7) k/uL Basophils # 0.0 (0-0.2) k/uL Hypochromasia Moderate PT 9.7 L (10.0-12.5) sec INR 0.9 (<1.2) APTT 23.5 (22.0-30.0) sec Sodium 137 (137-145) mmol/L Potassium 5.2 H (3.5-5.1) mmol/L Chloride 100 (98-107) mmol/L Carbon Dioxide 31 H (22-30) mmol/L Anion Gap 6 mmol/L BUN 17 (7-17) mg/dL Creatinine 0.49 L (0.52-1.04) mg/dL Est GFR (CKD-EPI)AfAm >90 (>60 ml/min/1.73 sqM) Est GFR (CKD-EPI)NonAf >90 (>60 ml/min/1.73 sqM) Glucose 85 (74-99) mg/dL Plasma Lactic Acid Eduard (0.7-2.0) mmol/L Calcium 9.2 (8.4-10.2) mg/dL Magnesium 2.0 (1.6-2.3) mg/dL Total Bilirubin 0.5 (0.2-1.3) mg/dL AST 27 (14-36) U/L ALT 25 (4-34) U/L Alkaline Phosphatase 91 (38-126) U/L Troponin I (0.000-0.034) ng/mL NT-Pro-B Natriuret Pep 504 pg/mL Total Protein 6.5 (6.3-8.2) g/dL Albumin 3.9 (3.5-5.0) g/dL 01/06/24 01/06/24 Range/Units 17:52 17:52 WBC (3.8-10.6) k/uL RBC (3.80-5.40) m/uL Hgb (11.4-16.0) gm/dL Hct (34.0-46.0) % MCV (80.0-100.0) fL MCH (25.0-35.0) pg MCHC (31.0-37.0) g/dL RDW (11.5-15.5) % Plt Count (150-450) k/uL MPV Neutrophils % % Lymphocytes % % Monocytes % % Eosinophils % % Basophils % % Neutrophils # (1.3-7.7) k/uL Lymphocytes # (1.0-4.8) k/uL Monocytes # (0-1.0) k/uL Eosinophils # (0-0.7) k/uL Basophils # (0-0.2) k/uL Hypochromasia PT (10.0-12.5) sec INR (<1.2) APTT (22.0-30.0) sec Sodium (137-145) mmol/L Potassium (3.5-5.1) mmol/L Chloride (98-107) mmol/L Carbon Dioxide (22-30) mmol/L Anion Gap mmol/L BUN (7-17) mg/dL Creatinine (0.52-1.04) mg/dL Est GFR (CKD-EPI)AfAm (>60 ml/min/1.73 sqM) Est GFR (CKD-EPI)NonAf (>60 ml/min/1.73 sqM) Glucose (74-99) mg/dL Plasma Lactic Acid Eduard 1.1 (0.7-2.0) mmol/L Calcium (8.4-10.2) mg/dL Magnesium (1.6-2.3) mg/dL Total Bilirubin (0.2-1.3) mg/dL AST (14-36) U/L ALT (4-34) U/L Alkaline Phosphatase (38-126) U/L Troponin I <0.012 (0.000-0.034) ng/mL NT-Pro-B Natriuret Pep pg/mL Total Protein (6.3-8.2) g/dL Albumin (3.5-5.0) g/dL - EKG Data -: EKG Interpreted by Me (EKG sinus 78 IL 132 QRS 78 QTc 385) - Radiology Data Radiology results: report reviewed (Chest x-ray is negative for acute disease), image reviewed Critical Care Time Critical Care Time: Yes Total Critical Care Time: 31 Disposition Clinical Impression: COPD exacerbation, Acute anxiety, Hypoxia, Depression, Obesity (BMI 30-39.9) Disposition: ADMITTED IP TO THIS HOSP Condition: Critical Is patient prescribed a controlled substance at d/c from ED?: No Time of Disposition: 19:45
[2024-01-06] MEDS: IPRATROPIUM-ALBUTEROL 3 ML NEB INHALATION STA ×2 (18:31→20:19)
[2024-01-06 19:07] LABS: Basophils % (A) 0 %; Eosinophils # (A) 0.1 k/uL (0-0.7); Eosinophils % (A) 1 %; HCT 43.3 % (34.0-46.0); HGB 12.9 gm/dL (11.4-16.0); Hypochromasia Moderate; Lymphocytes # (A) 0.6 k/uL (1.0-4.8); Lymphocytes % (A) 4 %; MCH 26.2 pg (25.0-35.0); MCHC 29.9 g/dL (31.0-37.0); MCV 87.6 fL (80.0-100.0); Mean Platelet Volume 7.4; Monocytes # (A) 0.4 k/uL (0-1.0); Monocytes % (A) 3 %; Neutrophils # (A) 14.2 k/uL (1.3-7.7); Neutrophils % (A) 92 %; Platelet Count 299 k/uL (150-450); RBC 4.95 m/uL (3.80-5.40); RDW 15.3 % (11.5-15.5); WBC 15.5 k/uL (3.8-10.6)
[2024-01-06 19:21] LABS: INR 0.9 (<1.2); Partial Thromboplastin Time 23.5 sec (22.0-30.0); Prothrombin Time 9.7 sec (10.0-12.5)
[2024-01-06 19:23] LABS: ALT 25 U/L (4-34); African American GFR (CKD) >90 (>60 ml/min/1.73 sqM); Albumin 3.9 g/dL (3.5-5.0); Anion Gap 6 mmol/L; Blood Urea Nitrogen 17 mg/dL (7-17); Calcium 9.2 mg/dL (8.4-10.2); Carbon Dioxide 31 mmol/L (22-30); Chloride 100 mmol/L (98-107); Glucose 85 mg/dL (74-99); Non-African American GFR(CKD) >90 (>60 ml/min/1.73 sqM); Sodium 137 mmol/L (137-145); Total Bilirubin 0.5 mg/dL (0.2-1.3); Total Protein 6.5 g/dL (6.3-8.2)
[2024-01-06 19:31] LABS: NT-Pro-B-Type Natriuretic Pept 504 pg/mL
[2024-01-06 19:34] LABS: AST 27 U/L (14-36); Alkaline Phosphatase 91 U/L (38-126); Potassium 5.2 mmol/L (3.5-5.1)
[2024-01-06] MEDS ORDERED: NALOXONE 0.4 MG/ML 1 ML VIAL IV PRN (19:40)
[2024-01-06] MEDS ORDERED: NALOXONE 0.4 MG/ML 1 ML VIAL IVP PRN (19:40)
[2024-01-06] MEDS: SODIUM CHLORIDE 0.9% 1,000 ML IV SCH (20:19)
[2024-01-06] MEDS: ALBUTEROL NEBULIZED 1.25 MG/3 ML INHALATION SCH (20:22)
--- NOTE | 2024-01-06 20:37 | XR ---
EXAM: XR chest 1V portable CLINICAL INDICATION:Female, 68 years old with history of sob; [facility] COMPARISON: Chest x-ray 12/27/2023 TECHNIQUE: Chest single view. FINDINGS: Lines/tubes/devices: None. Cardiomediastinum: Cardiac silhouette appears normal in size. Unremarkable mediastinal silhouette. Vasculature: No increased pulmonary vasculature. Lungs/pleura: Mildly hyperinflated appearance with mildly coarse interstitium, likely chronic lung changes. No acut e consolidation, pleural effusion, or pneumothorax. Bones/soft tissues: Bony thorax appears grossly intact as seen. Regional soft tissues appear unremarkable. IMPRESSION: No acute cardiopulmonary findings. No interval change.
[2024-01-06] MEDS: methylPREDNISolone SOD SUCCI 125 MG/2 ML VIAL IV STA (22:21)
[2024-01-06] MEDS: methylPREDNISolone SOD SUCCI 125 MG/2 ML VIAL IV SCH (23:54)
[2024-01-07] MEDS: IPRATROPIUM-ALBUTEROL 3 ML NEB INHALATION SCH (08:51)
[2024-01-07] MEDS: PANTOPRAZOLE 40 MG/10 ML VIAL IV SCH (10:26)
[2024-01-07 11:16] LABS: Basophils # (A) 0.01 X 10*3/uL (0.00-0.10); Basophils % (A) 0.1 %; Eosinophils # (A) 0 X 10*3/uL (0.04-0.35); Eosinophils % (A) 0 %; HGB 12.2 g/dL (12.0-15.0); Lymphocytes # (A) 0.53 X 10*3/uL (0.90-5.00); MCH 26.1 pg (27.0-32.0); MCHC 29.8 g/dL (32.0-37.0); MCV 87.8 FL (80.0-97.0); Mean Platelet Volume 9.6 FL (9.5-12.2); Monocytes # (A) 0.09 X 10*3/uL (0.20-1.00); Monocytes % (A) 0.7 %; NRBC Per 100 WBC 0 X 10*3/uL (0.00-0.01); Neutrophils # (A) 12.48 X 10*3/uL (1.80-7.70); Neutrophils % (A) 94.4 %; Platelet Count 310 X 10*3/uL (140-440); RBC 4.67 X 10*6/uL (4.10-5.20); RDW 15.9 % (11.5-14.5); WBC 13.22 X 10*3/uL (4.50-10.00)
[2024-01-07 11:45] LABS: BUN/Creat Ratio 23.29 Ratio (12.00-20.00); Blood Urea Nitrogen 16.3 mg/dL (9.0-27.0); Carbon Dioxide 31.4 mmol/L (21.6-31.8); Chloride 96 mmol/L (96-109); Glucose 161 mg/dL (70-110); Magnesium 1.9 mg/dL (1.5-2.4); Phosphorus 4.2 mg/dL (2.4-5.1); Potassium 5.2 mmol/L (3.5-5.5); Sodium 139 mmol/L (135-145)
[2024-01-07 11:46] LABS: ALT 21 U/L (8-44); AST 14 U/L (13-35); Albumin 3.9 g/dL (3.8-4.9); Albumin/Globulin Ratio 1.86 Ratio (1.60-3.17); Alkaline Phosphatase 98 U/L (41-126); Calcium 9.4 mg/dL (8.7-10.3); Globulin 2.1 g/dL (1.6-3.3); Total Bilirubin <0.2 mg/dL (0.3-1.2)
[2024-01-07] MEDS ORDERED: ARTIFICIAL TEARS-HYPROMELLOSE DROPS 15 ML BTL BOTH EYES PRN (12:24)
[2024-01-07] MEDS: DOXYCYCLINE 100 MG in SODIUM CHLORIDE 0.9% 100 ML IVPB SCH (13:43)
--- NOTE | 2024-01-07 15:34 | P.CNPUL ---
History of Present Illness Consult date: 01/07/24 Requesting physician: Karey Taylor Reason for consult: dyspnea Chief complaint: Shortness of breath, wheeze History of present illness: This is a 68-year-old female patient with a history of obesity, chronic obstructive pulmonary disease, oxygen dependent and steroid-dependent with an FEV1 value 20% of predicted. She also has obstructive sleep apnea utilizing CPAP. She was just here last week for COPD exacerbation. She Marcos presented here to the emergency room again yesterday complaints of increasing shortness of breath and low oxygen levels at home. Chest x-ray continues to show no acute pulmonary process. White count 13.2. Hemoglobin 12.2. Sodium 139. Potassium 5.2. Bicarb 31. BUN 16. Creatinine 0.7. Glucose 161. She is seen today in consultation on the regular medical floor. She is currently sitting up in bed. Awake and alert in no acute distress. Feeling a bit better today compared to yesterday. Maintaining O2 saturations in the 90s on 2 L nasal cannula. She has been initiated on DuoNeb inhalations, Pulmicort and Perforomist inhalations, IV Solu-Medrol. Empiric antibiotics in the form of doxycycline. Anticoagulated with Eliquis. Normal saline at 75 MLS per hour. Review of Systems REVIEW OF SYSTEMS: CONSTITUTIONAL: Denies any recent significant weight loss or weight gain. EYES: Denies change in vision. EARS, NOSE, MOUTH, THROAT: Denies headaches, denies sore throat. CARDIOVASCULAR: Denies chest pain, palpitations or syncopal episodes. RESPIRATORY: Positive for shortness of breath, cough, congestion no hemoptysis. GASTROINTESTINAL: Denies change in appetite, denies abdominal pain GENITOURINARY: Denies hematuria, denies infections. MUSKULOSKELETAL: Denies pain, denies swelling. INTEGUMENTARY: Denies rash, denies eczema. NEUROLOGICAL: Denies recent memory loss, no recent seizure activity. PSYCHIATRIC: Denies anxiety, denies depression. HEMATOLOGIC/LYMPHATIC: Denies anemia, denies enlarged lymph nodes. Past Medical History Past Medical History: Heart Failure, COPD, GERD/Reflux, Hypertension, Osteoarthritis (OA), Pulmonary Embolus (PE), Sleep Apnea/CPAP/BIPAP Additional Past Medical History / Comment(s): just finished antibiotic for recent UTI History of Any Multi-Drug Resistant Organisms: None Reported Past Surgical History: Cholecystectomy, Joint Replacement Additional Past Surgical History / Comment(s): Bilateral knee replacement Past Anesthesia/Blood Transfusion Reactions: No Reported Reaction Past Psychological History: Anxiety Smoking Status: Current every day smoker Past Alcohol Use History: Rare Past Drug Use History: None Reported Medications and Allergies Home Medications Medication Instructions Recorded Confirmed Type Albuterol Inhaler [Ventolin Hfa 2 puff INHALATION RT-QID PRN #0 10/01/16 01/06/24 Rx Inhaler] puff Citalopram Hydrobromide [CeleXA] 20 mg PO DAILY #30 tab 10/01/16 01/06/24 Rx Apixaban [Eliquis] 5 mg PO BID 03/11/23 01/06/24 History Celecoxib [CeleBREX] 100 mg PO DAILY 03/11/23 01/06/24 History Furosemide [Lasix] 20 mg PO BID 03/11/23 01/06/24 History Metoprolol Succinate (ER) [Toprol 50 mg PO DAILY 03/11/23 01/06/24 History XL] Cholecalciferol [Vitamin D3 (25 25 mcg PO DAILY 12/27/23 01/06/24 History Mcg = 1000 Iu)] Cyanocobalamin [Vitamin B-12] 500 mcg PO DAILY 12/27/23 01/06/24 History Ipratropium-Albuterol Nebulize 3 ml INHALATION RT-QID PRN 12/27/23 01/06/24 History [Duoneb 0.5 mg-3 mg/3 ml Soln] Terbinafine [LamISIL] 250 mg PO DAILY 12/27/23 01/06/24 History Tirzepatide [Mounjaro] 2.5 mg SQ MO 12/27/23 01/06/24 History Artificial Tears-Hypromellose 1 drop BOTH EYES TID PRN 01/06/24 01/06/24 History [Artificial Tear Drops] predniSONE 5 mg PO DIRECTED 01/06/24 01/06/24 History predniSONE See Taper PO DIRECTED 01/06/24 01/06/24 History Allergies Allergy/AdvReac Type Severity Reaction Status Date / Time hydrocodone AdvReac Nightmares Verified 01/06/24 20:04 Physical Exam Vitals: Vital Signs Temp Pulse Pulse Pulse Resp BP BP 01/07/24 13:27 98.1 F 85 18 143/76 03/29/24 12:07 72 01/07/24 11:55 74 01/07/24 11:04 18 01/07/24 09:10 72 01/07/24 08:52 74 01/07/24 06:55 98.2 F 80 18 149/64 01/07/24 05:22 20 01/07/24 01:51 97.8 F 80 17 145/71 01/06/24 21:40 01/06/24 20:33 71 01/06/24 20:25 75 16 112/97 01/06/24 20:19 76 01/06/24 19:35 77 16 104/55 01/06/24 18:47 77 01/06/24 18:40 80 18 125/74 01/06/24 18:31 75 01/06/24 17:37 98.0 F 86 18 104/67 Pulse Ox 01/07/24 13:27 93 L 01/07/24 12:07 01/07/24 11:55 01/07/24 11:04 01/07/24 09:10 01/07/24 08:52 98 01/07/24 06:55 93 L 01/07/24 05:22 93 L 01/07/24 01:51 90 L 01/06/24 21:40 93 L 01/06/24 20:33 01/06/24 20:25 95 01/06/24 20:19 01/06/24 19:35 95 01/06/24 18:47 01/06/24 18:40 95 01/06/24 18:31 01/06/24 17:37 94 L Intake and Output 01/07/24 01/07/24 01/07/24 06:59 14:59 22:59 Other: # Voids 1 GENERAL EXAM: Alert, 68-year-old obese female, on 2 L nasal cannula, comfortable in no apparent distress. HEAD: Normocephalic and atraumatic EYES: Normal reaction of pupils, equal size. NOSE: Clear with pink turbinates. THROAT: No erythema or exudates. NECK: No masses, no JVD. CHEST: No chest wall deformity. LUNGS: Equal air entry with expiratory wheezes heard posteriorly and throughout, no conversational dyspnea. CVS: S1 and S2 normal with no audible murmur, regular rhythm. No extra heart sounds ABDOMEN: No hepatosplenomegaly, active bowel sounds, no guarding or rigidity. SPINE: No scoliosis or deformity SKIN: No rashes CENTRAL NERVOUS SYSTEM: No focal deficits, tone is normal in all 4 extremities. EXTREMITIES: There is no peripheral edema, clubbing, or cyanosis. Peripheral pulses are intact. Results - Laboratory Findings CBC and BMP: 01/07/24 06:24 01/07/24 06:24 PT/INR, D-dimer PT 9.7 sec (10.0-12.5) L 01/06/24 17:52 INR 0.9 (<1.2) 01/06/24 17:52 Abnormal lab findings: Abnormal Labs 01/06/24 01/06/24 01/06/24 17:52 17:52 17:52 WBC 15.5 H MCH MCHC 29.9 L RDW Immature Gran # Neutrophils # 14.2 H Lymphocytes # 0.6 L Monocytes # Eosinophils # PT 9.7 L Potassium 5.2 H Carbon Dioxide 31 H Creatinine 0.49 L BUN/Creatinine Ratio Glucose Total Bilirubin Total Protein 01/07/24 01/07/24 06:24 06:24 WBC 13.22 H MCH 26.1 L MCHC 29.8 L RDW 15.9 H Immature Gran # 0.11 H Neutrophils # 12.48 H Lymphocytes # 0.53 L Monocytes # 0.09 L Eosinophils # 0 L PT Potassium Carbon Dioxide Creatinine BUN/Creatinine Ratio 23.29 H Glucose 161 H Total Bilirubin <0.2 L Total Protein 6.0 L Assessment and Plan Assessment: Acute on chronic hypoxic respiratory failure secondary to an acute exacerbation of chronic obstructive pulmonary disease. Chest x-ray again shows no focal in filtrates or evidence of pneumonia. Recent discharge on 12/30/2023 for the same Chronic hypoxic respiratory failure maintained on O2 between 2 and 3 L/min nasal cannula. Severe chronic obstructive pulmonary disease, with an FEV1 38% of predicted, maintained on a combination of Trelegy Ellipta, albuterol rescue inhaler, oral prednisone 5 mg daily, and is also oxygen dependent Chronic ongoing tobacco dependence History of pulmonary embolism, anticoagulated on Eliquis Obstructive sleep apnea, with home CPAP unit, maintained on CPAP pressure of 10 cm of water along with O2 at 3 L Obesity, with a BMI of 37.6 kg/m, currently on Mounjaro History of diabetes mellitus type 2 Chronic back pain Plan: The patient was seen and evaluated Chest x-ray, labs and medications reviewed No acute pulmonary process Continue bronchodilators, steroids Continue empiric antibiotics Titrate the FiO2 as tolerated We will continue to follow and make further recommendations based on her clinical status I have personally seen and examined the patient, performed the documentation and the assessment and plan as written. Number of minutes spent on the visit: 20.
[2024-01-07] MEDS: METOPROLOL SUCCINATE (ER) 50 MG TAB.ER.24H PO SCH (16:32)
[2024-01-07] MEDS: CITALOPRAM HYDROBROMIDE 20 MG TAB PO SCH (16:32)
--- NOTE | 2024-01-07 17:51 | P.HPIM ---
History of Present Illness H&P Date: 01/07/24 Chief Complaint: Shortness of breath 68-year-old female patient with a history of obesity, chronic obstructive pulmonary disease, oxygen dependent and steroid-dependent with an FEV1 value 20% of predicted. She also has obstructive sleep apnea utilizing CPAP. She was just here last week for COPD exacerbation. She Marcos presented here to the emergency room again yesterday complaints of increasing shortness of breath and low oxygen levels at home. Blood work completed in ED reveals WBC of 13.2, hemoglobin of 12.2 and platelet count of 310, sodium 139, potassium 5.2, BUN/creatinine of 16.3/0.7 and blood glucose of 161, Chest x-ray is negative for any acute process Patient is being admitted to the hospital for acute exacerbation COPD and hypoxia Review of Systems REVIEW OF SYSTEMS: CONSTITUTIONAL: No fever, no malaise, no fatigue. HEENT: No recent visual problems or hearing problems. Denied any sore throat. CARDIOVASCULAR: No chest pain, orthopnea, PND, no palpitations, no syncope. PULMONARY: No shortness of breath, no cough, no hemoptysis. GASTROINTESTINAL: No diarrhea, no nausea, no vomiting, no abdominal pain. NEUROLOGICAL: No headaches, no weakness, no numbness. HEMATOLOGICAL: Denies any bleeding or petechiae. GENITOURINARY: Denies any burning micturition, frequency, or urgency. MUSCULOSKELETAL/RHEUMATOLOGICAL: Denies any joint pain, swelling, or any muscle pain. ENDOCRINE: Denies any polyuria or polydipsia. The rest of the 14-point review of systems is negative. Past Medical History Past Medical History: Heart Failure, COPD, GERD/Reflux, Hypertension, Osteoarthritis (OA), Pulmonary Embolus (PE), Sleep Apnea/CPAP/BIPAP Additional Past Medical History / Comment(s): just finished antibiotic for recent UTI History of Any Multi-Drug Resistant Organisms: None Reported Past Surgical History: Cholecystectomy, Joint Replacement Additional Past Surgical History / Comment(s): Bilateral knee replacement Past Anesthesia/Blood Transfusion Reactions: No Reported Reaction Past Psychological History: Anxiety Smoking Status: Current every day smoker Past Alcohol Use History: Rare Past Drug Use History: None Reported Medications and Allergies Home Medications Medication Instructions Recorded Confirmed Type Albuterol Inhaler [Ventolin Hfa 2 puff INHALATION RT-QID PRN #0 10/01/16 01/06/24 Rx Inhaler] puff Citalopram Hydrobromide [CeleXA] 20 mg PO DAILY #30 tab 10/01/16 01/06/24 Rx Apixaban [Eliquis] 5 mg PO BID 03/11/23 01/06/24 History Celecoxib [CeleBREX] 100 mg PO DAILY 03/11/23 01/06/24 History Furosemide [Lasix] 20 mg PO BID 03/11/23 01/06/24 History Metoprolol Succinate (ER) [Toprol 50 mg PO DAILY 03/11/23 01/06/24 History XL] Cholecalciferol [Vitamin D3 (25 25 mcg PO DAILY 12/27/23 01/06/24 History Mcg = 1000 Iu)] Cyanocobalamin [Vitamin B-12] 500 mcg PO DAILY 12/27/23 01/06/24 History Ipratropium-Albuterol Nebulize 3 ml INHALATION RT-QID PRN 12/27/23 01/06/24 History [Duoneb 0.5 mg-3 mg/3 ml Soln] Terbinafine [LamISIL] 250 mg PO DAILY 12/27/23 01/06/24 History Tirzepatide [Mounjaro] 2.5 mg SQ MO 12/27/23 01/06/24 History Artificial Tears-Hypromellose 1 drop BOTH EYES TID PRN 01/06/24 01/06/24 History [Artificial Tear Drops] predniSONE 5 mg PO DIRECTED 01/06/24 01/06/24 History predniSONE See Taper PO DIRECTED 01/06/24 01/06/24 History Allergies Allergy/AdvReac Type Severity Reaction Status Date / Time hydrocodone AdvReac Nightmares Verified 01/06/24 20:04 Physical Exam Vitals: Vital Signs Temp Pulse Pulse Pulse Resp BP BP 01/07/24 12:07 72 01/07/24 11:55 74 01/07/24 11:04 18 01/07/24 09:10 72 01/07/24 08:52 74 01/07/24 06:55 98.2 F 80 18 149/64 01/07/24 05:22 20 01/07/24 01:51 97.8 F 80 17 145/71 01/06/24 21:40 01/06/24 20:33 71 01/06/24 20:25 75 16 112/97 01/06/24 20:19 76 01/06/24 19:35 77 16 104/55 01/06/24 18:47 77 01/06/24 18:40 80 18 125/74 01/06/24 18:31 75 01/06/24 17:37 98.0 F 86 18 104/67 Pulse Ox 01/07/24 12:07 01/07/24 11:55 01/07/24 11:04 01/07/24 09:10 01/07/24 08:52 98 01/07/24 06:55 93 L 01/07/24 05:22 93 L 01/07/24 01:51 90 L 01/06/24 21:40 93 L 01/06/24 20:33 01/06/24 20:25 95 01/06/24 20:19 01/06/24 19:35 95 01/06/24 18:47 01/06/24 18:40 95 01/06/24 18:31 01/06/24 17:37 94 L Intake and Output 01/06/24 01/07/24 01/07/24 22:59 06:59 14:59 Other: Voiding Method Toilet # Voids 1 Weight 108.862 kg GENERAL EXAM: Alert, 68-year-old obese female, on 2 L nasal cannula, comfortable in no apparent distress. HEAD: Normocephalic and atraumatic EYES: Normal reaction of pupils, equal size. THROAT: No erythema or exudates. NECK: No masses, no JVD. CHEST: No chest wall deformity. LUNGS: Equal air entry with expiratory wheezes heard posteriorly and throughout, no conversational dyspnea. CVS: S1 and S2 normal with no audible murmur, regular rhythm. No extra heart sounds ABDOMEN: No hepatosplenomegaly, active bowel sounds, no guarding or rigidity. CENTRAL NERVOUS SYSTEM: No focal deficits, tone is normal in all 4 extremities. EXTREMITIES: There is no peripheral edema, clubbing, or cyanosis. Peripheral pulses are intact. Results CBC & Chem 7: 01/07/24 06:24 01/07/24 06:24 Labs: Abnormal Lab Results - Last 24 Hours (Table) 01/06/24 01/06/24 01/06/24 Range/Units 17:52 17:52 17:52 WBC 15.5 H (3.8-10.6) k/uL MCH (27.0-32.0) pg MCHC 29.9 L (31.0-37.0) g/dL RDW (11.5-14.5) % Immature Gran # (0.00-0.04) X 10*3/uL Neutrophils # 14.2 H (1.3-7.7) k/uL Lymphocytes # 0.6 L (1.0-4.8) k/uL Monocytes # (0.20-1.00) X 10*3/uL Eosinophils # (0.04-0.35) X 10*3/uL PT 9.7 L (10.0-12.5) sec Potassium 5.2 H (3.5-5.1) mmol/L Carbon Dioxide 31 H (22-30) mmol/L Creatinine 0.49 L (0.52-1.04) mg/dL BUN/Creatinine Ratio (12.00-20.00) Ratio Glucose (70-110) mg/dL Total Bilirubin (0.3-1.2) mg/dL Total Protein (6.2-8.2) g/dL 01/07/24 01/07/24 Range/Units 06:24 06:24 WBC 13.22 H (3.8-10.6) k/uL MCH 26.1 L (27.0-32.0) pg MCHC 29.8 L (31.0-37.0) g/dL RDW 15.9 H (11.5-14.5) % Immature Gran # 0.11 H (0.00-0.04) X 10*3/uL Neutrophils # 12.48 H (1.3-7.7) k/uL Lymphocytes # 0.53 L (1.0-4.8) k/uL Monocytes # 0.09 L (0.20-1.00) X 10*3/uL Eosinophils # 0 L (0.04-0.35) X 10*3/uL PT (10.0-12.5) sec Potassium (3.5-5.1) mmol/L Carbon Dioxide (22-30) mmol/L Creatinine (0.52-1.04) mg/dL BUN/Creatinine Ratio 23.29 H (12.00-20.00) Ratio Glucose 161 H (70-110) mg/dL Total Bilirubin <0.2 L (0.3-1.2) mg/dL Total Protein 6.0 L (6.2-8.2) g/dL Thrombosis Risk Factor Assmnt - Choose All That Apply Any of the Below Risk Factors Present?: Yes Each Risk Factor Represents 2 Points: Age 61-74 years Thrombosis Risk Factor Assessment Total Risk Factor Score: 2 Thrombosis Risk Factor Assessment Level: Low Risk Assessment and Plan Assessment: 1. Acute on chronic hypoxic respiratory failure; related to acute exacerbation COPD --Patient uses 2 to 3 L O2 per nasal cannula at home; we will plan to titrate or wean as able keeping O2 saturation greater than 92% 2. Acute exacerbation COPD -- Patient has history of severe COPD with FEV1 of 38%, uses Trelegy Ellipta and oral prednisone 5 mg daily at home along with O2 at 2 to 3 L per nasal cannula Patient has been placed on methylprednisolone 60 mg IV every 6 hours; DuoNeb nebulizer treatments 4 times daily and as needed; steroid nebulizer Pulmicort 1 mg twice daily -- Doxycycline 100 mg twice daily 3. History of pulmonary embolism; continue with anticoagulation with Eliquis 4. Hypertension; metoprolol 50 mg daily 5. CAD/CHF; patient takes metoprolol, Eliquis and Lasix 20 mg twice daily 6. Vitamin D deficiency; continue with vitamin D3 25 mcg daily 7. Vitamin B12 deficiency; remains on home dose of vitamin B12 500 mcg daily 8. Depression; Celexa 20 mg daily DVT prophylaxis; SCDs/Eliquis CODE STATUS; full code
[2024-01-07] MEDS: FORMOTEROL FUMARATE 20 MCG/2 ML NEBU INHALATION SCH (18:26)
[2024-01-07] MEDS: BUDESONIDE 1 MG/2 ML NEBU INHALATION SCH (18:26)
[2024-01-07] MEDS: FUROSEMIDE 20 MG TAB PO SCH (20:19)
[2024-01-07] MEDS: APIXABAN 5 MG TAB PO SCH (20:19)
[2024-01-08] MEDS: ONDANSETRON 4 MG/2 ML VIAL IVP PRN (02:13)
[2024-01-08 03:48] LABS: Glucose,Whole Blood 140 mg/dL (70-110)
[2024-01-08] MEDS: IPRATROPIUM-ALBUTEROL 3 ML NEB INHALATION PRN (03:57)
[2024-01-08] MEDS: ACETAMINOPHEN TAB 325 MG TAB PO PRN (04:35)
[2024-01-08] MEDS: PANTOPRAZOLE 40 MG TABLET PO SCH (06:27)
[2024-01-08 08:04] LABS: African American GFR (CKD) >90 (>60 ml/min/1.73 sqM); Anion Gap 5 mmol/L; Blood Urea Nitrogen 26 mg/dL (7-17); Calcium 9.4 mg/dL (8.4-10.2); Carbon Dioxide 34 mmol/L (22-30); Chloride 98 mmol/L (98-107); Glucose 137 mg/dL (74-99); Non-African American GFR(CKD) >90 (>60 ml/min/1.73 sqM); Potassium 4.9 mmol/L (3.5-5.1); Sodium 137 mmol/L (137-145)
[2024-01-08 08:06] LABS: Basophils % (A) 0 %; Eosinophils % (A) 0 %; HCT 42.6 % (34.0-46.0); HGB 12.4 gm/dL (11.4-16.0); Hypochromasia Marked; Lymphocytes # (A) 0.5 k/uL (1.0-4.8); Lymphocytes % (A) 2 %; MCH 26.1 pg (25.0-35.0); MCHC 29.2 g/dL (31.0-37.0); MCV 89.5 fL (80.0-100.0); Mean Platelet Volume 7.5; Monocytes # (A) 0.6 k/uL (0-1.0); Monocytes % (A) 3 %; Neutrophils # (A) 17.5 k/uL (1.3-7.7); Neutrophils % (A) 94 %; Platelet Count 321 k/uL (150-450); RBC 4.75 m/uL (3.80-5.40); RDW 15.2 % (11.5-15.5); WBC 18.7 k/uL (3.8-10.6)
[2024-01-08] MEDS ORDERED: CITALOPRAM HYDROBROMIDE 20 MG TAB PO SCH (09:00)
[2024-01-08] MEDS ORDERED: METOPROLOL SUCCINATE (ER) 50 MG TAB.ER.24H PO SCH (09:00)
[2024-01-08] MEDS: CHOLECALCIFEROL 25 MCG (1000 IU) TABLET PO SCH (09:19)
[2024-01-08] MEDS: CYANOCOBALAMIN 500 MCG TAB PO SCH (09:19)
--- NOTE | 2024-01-08 14:00 | XR ---
EXAMINATION TYPE: XR chest 1V portable DATE OF EXAM: 01/08/2024 COMPARISON: 01/06/2024 INDICATION: Short of breath TECHNIQUE: Single frontal view of the chest is obtained. FINDINGS: The heart size is normal. The pulmonary vasculature is normal. The lungs are clear. IMPRESSION: 1. No acute pulmonary process. Follow up exams can be performed as clinically indicated.
--- NOTE | 2024-01-08 14:40 | P.PN ---
Subjective Progress Note Date: 01/08/24 This is a 68-year-old female patient with a history of obesity, chronic obstructive pulmonary disease, oxygen dependent and steroid-dependent with an FEV1 value 20% of predicted. She also has obstructive sleep apnea utilizing CPAP. She was just here last week for COPD exacerbation. She Marcos presented h ere to the emergency room again yesterday complaints of increasing shortness of breath and low oxygen levels at home. Chest x-ray continues to show no acute pulmonary process. White count 13.2. Hemoglobin 12.2. Sodium 139. Potassium 5.2. Bicarb 31. BUN 16. Creatinine 0.7. Glucose 161. She is seen today in consultation on the regular medical floor. She is currently sitting up in bed. Awake and alert in no acute distress. Feeling a bit better today compared to yesterday. Maintaining O2 saturations in the 90s on 2 L nasal cannula. She has been initiated on DuoNeb inhalations, Pulmicort and Perforomist inhalations, IV Solu-Medrol. Empiric antibiotics in the form of doxycycline. Anticoagulated with Eliquis. Normal saline at 75 MLS per hour. The patient is seen today January 08, 2024 in follow-up on the regular medical floor. She is currently sitting up having breakfast. Awake and alert in no acute distress. She is maintaining O2 saturations in the 90s on 3 L/min per nasal cannula. She is still somewhat bronchospastic and wheezing. Not quite back to her baseline. She is continued on bronchodilators and steroids. Remains anticoagulated with Eliquis. Follow-up chest x-ray reveals no acute pulmonary process. White count 18.7. Hemoglobin 12.4. Platelets 321. Sodium 137. Potassium 4.9. Bicarb 34. BUN 26. Creatinine 0.51. Glucose 137. Objective - Vital Signs Vital signs: Vital Signs Temp 98.1 F 01/08/24 02:00 Pulse 89 01/08/24 12:18 Resp 16 01/08/24 10:21 BP 111/65 01/08/24 06:57 Pulse Ox 91 L 01/08/24 08:55 FiO2 Intake & Output 01/07/24 01/08/24 01/08/24 18:59 06:59 18:59 Other: Voiding Method Toilet Toilet # Voids 3 1 # Bowel Movements 0 - Exam GENERAL EXAM: Alert, 68-year-old female, sitting up having breakfast, on 3 L nasal cannula, in no apparent distress. HEAD: Normocephalic and atraumatic EYES: Normal reaction of pupils, equal size. NOSE: Clear with pink turbinates. THROAT: No erythema or exudates. NECK: No masses, no JVD. CHEST: No chest wall deformity. LUNGS: Equal air entry with expiratory wheezes heard throughout, no conversational dyspnea. CVS: S1 and S2 normal with no audible murmur, regular rhythm. No extra heart sounds ABDOMEN: No hepatosplenomegaly, active bowel sounds, no guarding or rigidity. SPINE: No scoliosis or deformity SKIN: No rashes CENTRAL NERVOUS SYSTEM: No focal deficits, tone is normal in all 4 extremities. EXTREMITIES: There is no peripheral edema, clubbing, or cyanosis. Peripheral pulses are intact. - Labs CBC & Chem 7: 01/08/24 07:14 01/08/24 07:14 Labs: Abnormal Lab Results - Last 24 Hours (Table) 01/08/24 01/08/24 01/08/24 Range/Units 03:44 07:14 07:14 WBC 18.7 H (3.8-10.6) k/uL MCHC 29.2 L (31.0-37.0) g/dL Neutrophils # 17.5 H (1.3-7.7) k/uL Lymphocytes # 0.5 L (1.0-4.8) k/uL Carbon Dioxide 34 H (22-30) mmol/L BUN 26 H (7-17) mg/dL Creatinine 0.51 L (0.52-1.04) mg/dL Glucose 137 H (74-99) mg/dL POC Glucose (mg/dL) 140 H (70-110) mg/dL Assessment and Plan Assessment: Acute on chronic hypoxic respiratory failure secondary to an acute exacerbation of chronic obstructive pulmonary disease. Chest x-ray again shows no focal infiltrates or evidence of pneumonia. Recent discharge on 12/30/2023 for the same Chronic hypoxic respiratory failure maintained on O2 between 2 and 3 L/min nasal cannula. Severe chronic obstructive pulmonary disease, with an FEV1 38% of predicted, maintained on a combination of Trelegy Ellipta, albuterol rescue inhaler, oral prednisone 5 mg daily, and is also oxygen dependent Chronic ongoing tobacco dependence History of pulmonary embolism, anticoagulated on Eliquis Obstructive sleep apnea, with home CPAP unit, maintained on CPAP pressure of 10 cm of water along with O2 at 3 L Obesity, with a BMI of 37.6 kg/m, currently on Mounjaro History of diabetes mellitus type 2 Chronic back pain Plan: The patient was seen and evaluated Chest x-ray, labs and medications reviewed No acute pulmonary process Continue the current treatment plan Titrate the FiO2 as tolerated We will continue to follow I have personally seen and examined the patient, performed the documentation and the assessment and plan as written. Number of minutes spent on the visit: 10.
--- NOTE | 2024-01-08 17:12 | P.PN ---
Subjective Progress Note Date: 01/08/24 68-year-old female patient with a history of obesity, chronic obstructive pulmonary disease, oxygen dependent and steroid-dependent with an FEV1 value 20% of predicted. She also has obstructive sleep apnea utilizing CPAP. She was just here last week for COPD exacerbation. She Marcos presented here to the emergency room again yesterday complaints of increasing shortness of breath and low oxygen levels at home. Blood work completed in ED reveals WBC of 13.2, hemoglobin of 12.2 and platelet count of 310, sodium 139, potassium 5.2, BUN/creatinine of 16.3/0.7 and blood glucose of 161, Chest x-ray is negative for any acute process Patient is being admitted to the hospital for acute exacerbation COPD and hypoxia Objective - Vital Signs Vital signs: Vital Signs Temp 98.1 F 01/08/24 02:00 Pulse 80 01/08/24 10:21 Resp 16 01/08/24 10:21 BP 111/65 01/08/24 06:57 Pulse Ox 91 L 01/08/24 08:55 FiO2 Intake & Output 01/07/24 01/08/24 01/08/24 18:59 06:59 18:59 Other: Voiding Method Toilet Toilet # Voids 3 1 # Bowel Movements 0 - Exam GENERAL EXAM: Alert, 68-year-old obese female, on 2 L nasal cannula, comfortable in no apparent distress. HEAD: Normocephalic and atraumatic EYES: Normal reaction of pupils, equal size. THROAT: No erythema or exudates. NECK: No masses, no JVD. CHEST: No chest wall deformity. LUNGS: Equal air entry with expiratory wheezes heard posteriorly and throughout, no conversational dyspnea. CVS: S1 and S2 normal with no audible murmur, regular rhythm. No extra heart sounds ABDOMEN: No hepatosplenomegaly, active bowel sounds, no guarding or rigidity. CENTRAL NERVOUS SYSTEM: No focal deficits, tone is normal in all 4 extremities. EXTREMITIES: There is no peripheral edema, clubbing, or cyanosis. Peripheral pulses are intact. - Labs CBC & Chem 7: 01/08/24 07:14 01/08/24 07:14 Labs: Abnormal Lab Results - Last 24 Hours (Table) 01/08/24 01/08/24 01/08/24 Range/Units 03:44 07:14 07:14 WBC 18.7 H (3.8-10.6) k/uL MCHC 29.2 L (31.0-37.0) g/dL Neutrophils # 17.5 H (1.3-7.7) k/uL Lymphocytes # 0.5 L (1.0-4.8) k/uL Carbon Dioxide 34 H (22-30) mmol/L BUN 26 H (7-17) mg/dL Creatinine 0.51 L (0.52-1.04) mg/dL Glucose 137 H (74-99) mg/dL POC Glucose (mg/dL) 140 H (70-110) mg/dL Assessment and Plan Assessment: 1. Acute on chronic hypoxic respiratory failure; related to acute exacerbation COPD --Patient uses 2 to 3 L O2 per nasal cannula at home; we will plan to titrate or wean as able keeping O2 saturation greater than 92% 2. Acute exacerbation COPD -- Patient has history of severe COPD with FEV1 of 38%, uses Trelegy Ellipta and oral prednisone 5 mg daily at home along with O2 at 2 to 3 L per nasal cannula Patient has been placed on methylprednisolone 60 mg IV every 6 hours; DuoNeb nebulizer treatments 4 times daily and as needed; steroid nebulizer Pulmicort 1 mg twice daily -- Doxycycline 100 mg twice daily 3. History of pulmonary embolism; continue with anticoagulation with Eliquis 4. Hypertension; metoprolol 50 mg daily 5. CAD/CHF; patient takes metoprolol, Eliquis and Lasix 20 mg twice daily 6. Vitamin D deficiency; continue with vitamin D3 25 mcg daily 7. Vitamin B12 deficiency; remains on home dose of vitamin B12 500 mcg daily 8. Depression; Celexa 20 mg daily DVT prophylaxis; SCDs/Eliquis CODE STATUS; full code
[2024-01-08] MEDS: HYDROmorphone 1 MG/ML 1 ML SYRINGE IVP PRN (21:29)
[2024-01-09 09:40] LABS: Basophils # (A) 0.04 X 10*3/uL (0.00-0.10); Basophils % (A) 0.2 %; Eosinophils # (A) 0 X 10*3/uL (0.04-0.35); Eosinophils % (A) 0 %; HCT 44.1 % (37.2-46.3); HGB 12.5 g/dL (12.0-15.0); Lymphocytes # (A) 0.49 X 10*3/uL (0.90-5.00); Lymphocytes % (A) 2.3 %; MCH 25.7 pg (27.0-32.0); MCHC 28.3 g/dL (32.0-37.0); MCV 90.6 FL (80.0-97.0); Mean Platelet Volume 9.2 FL (9.5-12.2); Monocytes # (A) 0.43 X 10*3/uL (0.20-1.00); NRBC Per 100 WBC 0 X 10*3/uL (0.00-0.01); Neutrophils # (A) 19.73 X 10*3/uL (1.80-7.70); Neutrophils % (A) 93.5 %; Platelet Count 337 X 10*3/uL (140-440); RBC 4.87 X 10*6/uL (4.10-5.20); WBC 21.11 X 10*3/uL (4.50-10.00)
[2024-01-09 09:43] LABS: BUN/Creat Ratio 38.86 Ratio (12.00-20.00); Blood Urea Nitrogen 27.2 mg/dL (9.0-27.0); Calcium 9.5 mg/dL (8.7-10.3); Carbon Dioxide 33.4 mmol/L (21.6-31.8); Chloride 95 mmol/L (96-109); Glucose 139 mg/dL (70-110); Potassium 5.1 mmol/L (3.5-5.5); Sodium 138 mmol/L (135-145)
[2024-01-09] MEDS: traMADol 50 MG TAB PO PRN (13:32)
--- NOTE | 2024-01-09 14:19 | P.PN ---
Subjective Progress Note Date: 01/09/24 This is a 68-year-old female patient with a history of obesity, chronic obstructive pulmonary disease, oxygen dependent and steroid-dependent with an FEV1 value 20% of predicted. She also has obstructive sleep apnea utilizing CPAP. She was just here last week for COPD exacerbation. She Marcos presented h ere to the emergency room again yesterday complaints of increasing shortness of breath and low oxygen levels at home. Chest x-ray continues to show no acute pulmonary process. White count 13.2. Hemoglobin 12.2. Sodium 139. Potassium 5.2. Bicarb 31. BUN 16. Creatinine 0.7. Glucose 161. She is seen today in consultation on the regular medical floor. She is currently sitting up in bed. Awake and alert in no acute distress. Feeling a bit better today compared to yesterday. Maintaining O2 saturations in the 90s on 2 L nasal cannula. She has been initiated on DuoNeb inhalations, Pulmicort and Perforomist inhalations, IV Solu-Medrol. Empiric antibiotics in the form of doxycycline. Anticoagulated with Eliquis. Normal saline at 75 MLS per hour. The patient is seen today January 08, 2024 in follow-up on the regular medical floor. She is currently sitting up having breakfast. Awake and alert in no acute distress. She is maintaining O2 saturations in the 90s on 3 L/min per nasal cannula. She is still somewhat bronchospastic and wheezing. Not quite back to her baseline. She is continued on bronchodilators and steroids. Remains anticoagulated with Eliquis. Follow-up chest x-ray reveals no acute pulmonary process. White count 18.7. Hemoglobin 12.4. Platelets 321. Sodium 137. Potassium 4.9. Bicarb 34. BUN 26. Creatinine 0.51. Glucose 137. The patient is seen today January 09, 2024 and follow-up on the regular medical floor. She is awake and alert in no acute distress. Sitting up in bed. Still coughing and congested. Not back to her baseline. Improved today compared to yesterday however. She is maintaining O2 saturations in the 90s on 3 L/min per nasal cannula. She is utilizing CPAP at night. She remains on bronchodilators and steroids. Continued on empiric antibiotics in the form of doxycycline. Remains on diuretics. Anticoagulated with Eliquis. Chest x-ray revealed no acute process. White count 21.1. Hemoglobin 12.5. Sodium 138. Potassium 5.1. Bicarb 33. BUN 27. Creatinine 0.7. Glucose 139. Objective - Vital Signs Vital signs: Vital Signs Temp 97.6 F 01/09/24 06:57 Pulse 84 01/09/24 11:29 Resp 20 01/09/24 08:59 BP 137/76 01/09/24 06:57 Pulse Ox 94 L 01/09/24 11:30 FiO2 Intake & Output 01/08/24 01/09/24 01/09/24 18:59 06:59 18:59 Output Total 3 Balance -3 Weight 119.6 kg Output: Urine 3 Other: Voiding Method Toilet Toilet Toilet # Voids 3 # Bowel Movements 0 - Exam GENERAL EXAM: Alert, 68-year-old female, resting in bed, on 3 L nasal cannula, in no apparent distress. HEAD: Normocephalic and atraumatic EYES: Normal reaction of pupils, equal size. NOSE: Clear with pink turbinates. THROAT: No erythema or exudates. NECK: No masses, no JVD. CHEST: No chest wall deformity. LUNGS: Equal air entry with expiratory wheezes heard throughout, no conversational dyspnea. CVS: S1 and S2 normal with no audible murmur, regular rhythm. No extra heart sounds ABDOMEN: No hepatosplenomegaly, active bowel sounds, no guarding or rigidity. SPINE: No scoliosis or deformity SKIN: No rashes CENTRAL NERVOUS SYSTEM: No focal deficits, tone is normal in all 4 extremities. EXTREMITIES: There is no peripheral edema, clubbing, or cyanosis. Peripheral pulses are intact. - Labs CBC & Chem 7: 01/09/24 05:06 01/09/24 05:06 Labs: Abnormal Lab Results - Last 24 Hours (Table) 01/09/24 01/09/24 Range/Units 05:06 05:06 WBC 21.11 H (4.50-10.00) X 10*3/uL MCH 25.7 L (27.0-32.0) pg MCHC 28.3 L (32.0-37.0) g/dL RDW 16.0 H (11.5-14.5) % MPV 9.2 L (9.5-12.2) FL Immature Gran # 0.42 H (0.00-0.04) X 10*3/uL Neutrophils # 19.73 H (1.80-7.70) X 10*3/uL Lymphocytes # 0.49 L (0.90-5.00) X 10*3/uL Eosinophils # 0 L (0.04-0.35) X 10*3/uL Chloride 95 L (96-109) mmol/L Carbon Dioxide 33.4 H (21.6-31.8) mmol/L BUN 27.2 H (9.0-27.0) mg/dL BUN/Creatinine Ratio 38.86 H (12.00-20.00) Ratio Glucose 139 H (70-110) mg/dL Assessment and Plan Assessment: Acute on chronic hypoxic respiratory failure secondary to an acute exacerbation of chronic obstructive pulmonary disease. Chest x-ray again shows no focal infiltrates or evidence of pneumonia. Recent discharge on 12/30/2023 for the same Chronic hypoxic respiratory failure maintained on O2 between 2 and 3 L/min nasal cannula. Severe chronic obstructive pulmonary disease, with an FEV1 38% of predicted, maintained on a combination of Trelegy Ellipta, albuterol rescue inhaler, oral prednisone 5 mg daily, and is also oxygen dependent Chronic ongoing tobacco dependence History of pulmonary embolism, anticoagulated on Eliquis Obstructive sleep apnea, maintained on CPAP pressure of 10 cm of water along with O2 at 3 L Obesity, with a BMI of 41.3 kg/m, currently on Mounjaro History of diabetes mellitus type 2 Chronic back pain Plan: The patient was seen and evaluated Labs and medications reviewed Continue the current treatment plan Titrate the FiO2 as tolerated Increase her activity as tolerated We will continue to follow I have personally seen and examined the patient, performed the documentation and the assessment and plan as written. Number of minutes spent on the visit: 10.
--- NOTE | 2024-01-09 15:01 | P.PN ---
Subjective Progress Note Date: 01/09/24 68-year-old female patient with a history of obesity, chronic obstructive pulmonary disease, oxygen dependent and steroid-dependent with an FEV1 value 20% of predicted. She also has obstructive sleep apnea utilizing CPAP. She was just here last week for COPD exacerbation. She Marcos presented here to the emergency room again yesterday complaints of increasing shortness of breath and low oxygen levels at home. Blood work completed in ED reveals WBC of 13.2, hemoglobin of 12.2 and platelet count of 310, sodium 139, potassium 5.2, BUN/creatinine of 16.3/0.7 and blood glucose of 161, Chest x-ray is negative for any acute process Patient is being admitted to the hospital for acute exacerbation COPD and hypoxia 01/09/2024 Patient is seen and evaluated in follow-up on the regular medical floor. She is awake and alert in no acute distress. Sitting up in bed. Still coughing and congested. Not back to her baseline. Improved today compared to yesterday however. She is maintaining O2 saturations in the 90s on 3 L/min per nasal cannula. She is utilizing CPAP at night. - She remains on bronchodilators and steroids. Continued on empiric antibiotics in the form of doxycycline. Remains on diuretics. Anticoagulated with Eliquis. Chest x-ray revealed no acute process. White count 21.1. Hemoglobin 12.5. Sodium 138. Potassium 5.1. Bicarb 33. BUN 27. Creatinine 0.7. Glucose 139. Continue with O2 per nasal cannula and titrate/wean as able Objective - Vital Signs Vital signs: Vital Signs Temp 97.6 F 01/09/24 06:57 Pulse 88 01/09/24 11:18 Resp 20 01/09/24 08:59 BP 137/76 01/09/24 06:57 Pulse Ox 94 L 01/09/24 06:57 FiO2 Intake & Output 01/08/24 01/09/24 01/09/24 18:59 06:59 18:59 Output Total 3 Balance -3 Weight 119.6 kg Output: Urine 3 Other: Voiding Method Toilet Toilet Toilet # Voids 3 # Bowel Movements 0 - Exam GENERAL EXAM: Alert, 68-year-old obese female, on 2 L nasal cannula, comfortable in no apparent distress. HEAD: Normocephalic and atraumatic EYES: Normal reaction of pupils, equal size. THROAT: No erythema or exudates. NECK: No masses, no JVD. CHEST: No chest wall deformity. LUNGS: Equal air entry with expiratory wheezes heard posteriorly and throughout, no conversational dyspnea. CVS: S1 and S2 normal with no audible murmur, regular rhythm. No extra heart sounds ABDOMEN: No hepatosplenomegaly, active bowel sounds, no guarding or rigidity. CENTRAL NERVOUS SYSTEM: No focal deficits, tone is normal in all 4 extremities. EXTREMITIES: There is no peripheral edema, clubbing, or cyanosis. Peripheral pulses are intact. - Labs CBC & Chem 7: 01/09/24 05:06 01/09/24 05:06 Labs: Abnormal Lab Results - Last 24 Hours (Table) 01/09/24 01/09/24 Range/Units 05:06 05:06 WBC 21.11 H (4.50-10.00) X 10*3/uL MCH 25.7 L (27.0-32.0) pg MCHC 28.3 L (32.0-37.0) g/dL RDW 16.0 H (11.5-14.5) % MPV 9.2 L (9.5-12.2) FL Immature Gran # 0.42 H (0.00-0.04) X 10*3/uL Neutrophils # 19.73 H (1.80-7.70) X 10*3/uL Lymphocytes # 0.49 L (0.90-5.00) X 10*3/uL Eosinophils # 0 L (0.04-0.35) X 10*3/uL Chloride 95 L (96-109) mmol/L Carbon Dioxide 33.4 H (21.6-31.8) mmol/L BUN 27.2 H (9.0-27.0) mg/dL BUN/Creatinine Ratio 38.86 H (12.00-20.00) Ratio Glucose 139 H (70-110) mg/dL Assessment and Plan Assessment: 1. Acute on chronic hypoxic respiratory failure; related to acute exacerbation COPD --Patient uses 2 to 3 L O2 per nasal cannula at home; we will plan to titrate or wean as able keeping O2 saturation greater than 92% 2. Acute exacerbation COPD -- Patient has history of severe COPD with FEV1 of 38%, uses Trelegy Ellipta and oral prednisone 5 mg daily at home along with O2 at 2 to 3 L per nasal cannula Patient has been placed on methylprednisolone 60 mg IV every 6 hours; DuoNeb nebulizer treatments 4 times daily and as needed; steroid nebulizer Pulmicort 1 mg twice daily -- Doxycycline 100 mg twice daily 3. History of pulmonary embolism; continue with anticoagulation with Eliquis 4. Hypertension; metoprolol 50 mg daily 5. CAD/CHF; patient takes metoprolol, Eliquis and Lasix 20 mg twice daily 6. Vitamin D deficiency; continue with vitamin D3 25 mcg daily 7. Vitamin B12 deficiency; remains on home dose of vitamin B12 500 mcg daily 8. Depression; Celexa 20 mg daily DVT prophylaxis; SCDs/Eliquis CODE STATUS; full code
[2024-01-09] MEDS ORDERED: guaiFENesin-DM 100-10MG/5ML 10 ML CUP PO PRN (15:02)
[2024-01-10] MEDS ORDERED: ONDANSETRON 4 MG/2 ML VIAL IVP PRN (09:04)
--- NOTE | 2024-01-10 13:08 | P.PN ---
Subjective Progress Note Date: 01/10/24 This is a 68-year-old female admitted with acute COPD exacerbation, recently discharged on 12/30/2023 for the same. Reports after completing her steroids, developed reoccurrence of symptoms. Maintained on nebulized bronchodilators, steroids and doxycycline. Had been declining her Pulmicort treatment as she stated it caused her to have nausea. Reinforced importance of Pulmicort and that she does have Zofran in place for nausea. Uses her CPAP at night. Currently maintaining O2 sats of 97% on 3 L, afebrile. Currently with cough and expiratory wheezing. Objective - Vital Signs Vital signs: Vital Signs Temp 97.4 F L 01/10/24 07:16 Pulse 75 01/10/24 12:31 Resp 20 01/10/24 07:16 BP 144/75 01/10/24 07:16 Pulse Ox 97 01/10/24 09:02 FiO2 Intake & Output 01/09/24 01/10/24 01/10/24 18:59 06:59 18:59 Intake Total 750 Balance 750 Weight 120 kg Intake: Oral 750 Other: Voiding Method Toilet Toilet Toilet # Voids 3 4 - Exam GENERAL: Alert and oriented x 3, sitting up in chair, no acute distress. No conversational dyspnea. HEENT: Head is atraumatic, normocephalic. Pupils are equal, round, and reactive to light. Sclerae anicteric. Conjunctivae are clear. Mucus membranes of the mouth are moist. Neck is supple, no JVD. RESPIRATORY: Unlabored, equal air entry, expiratory wheezing scattered throughout. CARDIOVASCULAR: Regular rate and rhythm. GASTROINTESTINAL: No distention noted. Abdomen soft and round. Normal active bowel sounds. No pain or tenderness noted upon palpation. INTEGUMENTARY: No cyanosis. No jaundice. No rashes noted. EXTREMITIES: 2+ peripheral pulses. No evidence of peripheral edema. No calf tenderness noted. NEUROLOGIC: Cranial nerves II-XII intact. No focal deficit. - Labs CBC & Chem 7: 01/09/24 05:06 01/09/24 05:06 Assessment and Plan Assessment: Acute on chronic COPD exacerbation Acute on chronic hypoxic respiratory failure, secondary to the above, wears between 2 and 3 L nasal cannula O2 at home; currently on 3 L nasal cannula Ongoing nicotine dependence History of PE anticoagulated on Eliquis Obstructive sleep apnea wears CPAP Diabetes mellitus II Morbid obesity, BMI 41, on Mounjaro Gastroesophageal reflux disease Hypertension Plan: Continue on current medication regimen ,monitoring and symptomatic treatment. Reinforced using Pulmicort and Zofran as needed. Increase activity as tolerated. Follow closely with pulmonary. The impression and plan of care has been dictated as directed. : I performed a history and examination of this patient, discussed the same with the dictator. I agree with the dictator's note ,documented as a scribe. Any additional findings or plans will be noted.
--- NOTE | 2024-01-10 14:35 | P.PN ---
Subjective Progress Note Date: 01/10/24 This is a 68-year-old female patient with a history of obesity, chronic obstructive pulmonary disease, oxygen dependent and steroid-dependent with an FEV1 value 20% of predicted. She also has obstructive sleep apnea utilizing CPAP. She was just here last week for COPD exacerbation. She Marcos presented h ere to the emergency room again yesterday complaints of increasing shortness of breath and low oxygen levels at home. Chest x-ray continues to show no acute pulmonary process. White count 13.2. Hemoglobin 12.2. Sodium 139. Potassium 5.2. Bicarb 31. BUN 16. Creatinine 0.7. Glucose 161. She is seen today in consultation on the regular medical floor. She is currently sitting up in bed. Awake and alert in no acute distress. Feeling a bit better today compared to yesterday. Maintaining O2 saturations in the 90s on 2 L nasal cannula. She has been initiated on DuoNeb inhalations, Pulmicort and Perforomist inhalations, IV Solu-Medrol. Empiric antibiotics in the form of doxycycline. Anticoagulated with Eliquis. Normal saline at 75 MLS per hour. The patient is seen today January 08, 2024 in follow-up on the regular medical floor. She is currently sitting up having breakfast. Awake and alert in no acute distress. She is maintaining O2 saturations in the 90s on 3 L/min per nasal cannula. She is still somewhat bronchospastic and wheezing. Not quite back to her baseline. She is continued on bronchodilators and steroids. Remains anticoagulated with Eliquis. Follow-up chest x-ray reveals no acute pulmonary process. White count 18.7. Hemoglobin 12.4. Platelets 321. Sodium 137. Potassium 4.9. Bicarb 34. BUN 26. Creatinine 0.51. Glucose 137. The patient is seen today January 09, 2024 and follow-up on the regular medical floor. She is awake and alert in no acute distress. Sitting up in bed. Still coughing and congested. Not back to her baseline. Improved today compared to yesterday however. She is maintaining O2 saturations in the 90s on 3 L/min per nasal cannula. She is utilizing CPAP at night. She remains on bronchodilators and steroids. Continued on empiric antibiotics in the form of doxycycline. Remains on diuretics. Anticoagulated with Eliquis. Chest x-ray revealed no acute process. White count 21.1. Hemoglobin 12.5. Sodium 138. Potassium 5.1. Bicarb 33. BUN 27. Creatinine 0.7. Glucose 139. The patient is seen today January 10, 2024 in follow-up on the regular medical floor. He is currently sitting up in bed. Awake and alert in no acute distress. She is still not feeling much better. Still coughing and congestion. Still wheezing. She is maintaining O2 saturation in the mid 90s on 3 L/min per nasal cannula. Afebrile. Hemodynamically stable. Viral screen was negative. She remains on bronchodilators and steroids. Continued on empiric antibiotics in the form of doxycycline. Remains on diuretics. Anticoagulated with Eliquis. Objective - Vital Signs Vital signs: Vital Signs Temp 97.4 F L 01/10/24 07:16 Pulse 75 01/10/24 12:31 Resp 20 01/10/24 07:16 BP 144/75 01/10/24 07:16 Pulse Ox 97 01/10/24 09:02 FiO2 Intake & Output 01/09/24 01/10/24 01/10/24 18:59 06:59 18:59 Intake Total 750 Balance 750 Weight 120 kg Intake: Oral 750 Other: Voiding Method Toilet Toilet Toilet # Voids 3 4 - Exam GENERAL EXAM: Alert, 68-year-old female, sitting up in bed, on 3 L nasal cannula, in no acute distress. HEAD: Normocephalic and atraumatic EYES: Normal reaction of pupils, equal size. NOSE: Clear with pink turbinates. THROAT: No erythema or exudates. NECK: No masses, no JVD. CHEST: No chest wall deformity. LUNGS: Equal air entry with expiratory wheezes heard throughout, no conversational dyspnea. CVS: S1 and S2 normal with no audible murmur, regular rhythm. No extra heart sounds ABDOMEN: No hepatosplenomegaly, active bowel sounds, no guarding or rigidity. SPINE: No scoliosis or deformity SKIN: No rashes CENTRAL NERVOUS SYSTEM: No focal deficits, tone is normal in all 4 extremities. EXTREMITIES: There is no peripheral edema, clubbing, or cyanosis. Peripheral pulses are intact. - Labs CBC & Chem 7: 01/09/24 05:06 01/09/24 05:06 Assessment and Plan Assessment: Acute on chronic hypoxic respiratory failure secondary to an acute exacerbation of chronic obstructive pulmonary disease. Chest x-ray again shows no focal infiltrates or evidence of pneumonia. Recent discharge on 12/30/2023 for the same Chronic hypoxic respiratory failure maintained on O2 between 2 and 3 L/min nasal cannula. Severe chronic obstructive pulmonary disease, with an FEV1 38% of predicted, maintained on a combination of Trelegy Ellipta, albuterol rescue inhaler, oral prednisone 5 mg daily, and is also oxygen dependent Chronic ongoing tobacco dependence History of pulmonary embolism, anticoagulated on Eliquis Obstructive sleep apnea, maintained on CPAP pressure of 10 cm of water along with O2 at 3 L Obesity, with a BMI of 41.4 kg/m, currently on Mounjaro History of diabetes mellitus type 2 Chronic back pain Plan: The patient was seen and evaluated Labs and medications reviewed She has been slow to progress Plan for bronchoscopy with BAL tomorrow Hold Eliquis for now We will continue to follow I have personally seen and examined the patient, performed the documentation and the assessment and plan as written. Number of minutes spent on the visit: 10.
[2024-01-11 08:03] VITALS: RESP 19
[2024-01-11] MEDS ORDERED: PROPOFOL 10 MG/ML 20 ML VIAL IV ONE (13:07)
[2024-01-11] MEDS: IV FLUID CONTINUATION 200 ML IV ONE (13:09)
[2024-01-11] MEDS: LIDOCAINE 2% (PF) 20 MG/ML 2 ML VIAL INHALATION ONE (13:16)
--- NOTE | 2024-01-11 13:44 | P.PN ---
Subjective Progress Note Date: 01/11/24 This is a 68-year-old female admitted with acute COPD exacerbation, recently discharged on 12/30/2023 for the same. Reports after completing her steroids, developed reoccurrence of symptoms. Maintained on nebulized bronchodilators, steroids and doxycycline. Had been declining her Pulmicort treatment as she stated it caused her to have nausea. Reinforced importance of Pulmicort and that she does have Zofran in place for nausea. Uses her CPAP at night. Currently maintaining O2 sats of 97% on 3 L, afebrile. Currently with cough and expiratory wheezing. 01/11/2024 congested, reports rough night with nonproductive cough. Maintaining O2 sats in the high 90s on 3 L nasal cannula. N.P.O., scheduled for bronchoscopy with BAL. Afebrile, Objective - Vital Signs Vital signs: Vital Signs Temp 97.7 F 01/11/24 07:00 Pulse 76 01/11/24 11:46 Resp 19 01/11/24 10:27 BP 134/79 01/11/24 07:00 Pulse Ox 97 01/11/24 07:00 FiO2 Intake & Output 01/10/24 01/11/24 01/11/24 18:59 06:59 18:59 Intake Total 540 100 100 Balance 540 100 100 Weight 94.5 kg Intake: IV 100 Intake, IV Titration 100 Amount Doxycycline 100 mg In 100 Sodium Chloride 0.9% 100 ml @ 100 mls/hr IVPB Q12HR@0000,1200 SHILPI Rx#: [id number] Oral 540 Other: Voiding Method Toilet Toilet # Voids 2 - Exam GENERAL: Alert and oriented x 3, sitting up in chair, no acute distress. No conversational dyspnea. HEENT: Head is atraumatic, normocephalic. Pupils are equal, round, and reactive to light. Sclerae anicteric. Conjunctivae are clear. Neck is supple, no JVD. RESPIRATORY: Unlabored, equal air entry, expiratory wheezing scattered throughout. CARDIOVASCULAR: Regular rate and rhythm. GASTROINTESTINAL: No distention noted. Abdomen soft and round. Normal active bowel sounds. No pain or tenderness noted upon palpation. INTEGUMENTARY: No cyanosis. No jaundice. No rashes noted. EXTREMITIES: 2+ peripheral pulses. No evidence of peripheral edema. No calf tenderness noted. NEUROLOGIC: Cranial nerves II-XII intact. No focal deficit. - Labs CBC & Chem 7: 01/09/24 05:06 01/09/24 05:06 Assessment and Plan Assessment: Acute on chronic COPD exacerbation Acute on chronic hypoxic respiratory failure, secondary to the above, wears between 2 and 3 L nasal cannula O2 at home; currently on 3 L nasal cannula Ongoing nicotine dependence History of PE anticoagulated on Eliquis Obstructive sleep apnea wears CPAP Diabetes mellitus II Morbid obesity, BMI 41, on Mounjaro Gastroesophageal reflux disease Hypertension Plan: Continue on current medication regimen ,monitoring and symptomatic treatment. Maintain aggressive pulmonary toileting with nebulized bronchodilators, Pulmicort, IV steroids. NPO, scheduled for bronchoscopy with BAL today-with pulmonary. The impression and plan of care has been dictated as directed. : I performed a history and examination of this patient, discussed the same with the dictator. I agree with the dictator's note ,documented as a scribe. Any additional findings or plans will be noted.
--- NOTE | 2024-01-11 15:02 | P.PN ---
Subjective Progress Note Date: 01/11/24 This is a 68-year-old female patient with a history of obesity, chronic obstructive pulmonary disease, oxygen dependent and steroid-dependent with an FEV1 value 20% of predicted. She also has obstructive sleep apnea utilizing CPAP. She was just here last week for COPD exacerbation. She Marcos presented h ere to the emergency room again yesterday complaints of increasing shortness of breath and low oxygen levels at home. Chest x-ray continues to show no acute pulmonary process. White count 13.2. Hemoglobin 12.2. Sodium 139. Potassium 5.2. Bicarb 31. BUN 16. Creatinine 0.7. Glucose 161. She is seen today in consultation on the regular medical floor. She is currently sitting up in bed. Awake and alert in no acute distress. Feeling a bit better today compared to yesterday. Maintaining O2 saturations in the 90s on 2 L nasal cannula. She has been initiated on DuoNeb inhalations, Pulmicort and Perforomist inhalations, IV Solu-Medrol. Empiric antibiotics in the form of doxycycline. Anticoagulated with Eliquis. Normal saline at 75 MLS per hour. The patient is seen today January 08, 2024 in follow-up on the regular medical floor. She is currently sitting up having breakfast. Awake and alert in no acute distress. She is maintaining O2 saturations in the 90s on 3 L/min per nasal cannula. She is still somewhat bronchospastic and wheezing. Not quite back to her baseline. She is continued on bronchodilators and steroids. Remains anticoagulated with Eliquis. Follow-up chest x-ray reveals no acute pulmonary process. White count 18.7. Hemoglobin 12.4. Platelets 321. Sodium 137. Potassium 4.9. Bicarb 34. BUN 26. Creatinine 0.51. Glucose 137. The patient is seen today January 09, 2024 and follow-up on the regular medical floor. She is awake and alert in no acute distress. Sitting up in bed. Still coughing and congested. Not back to her baseline. Improved today compared to yesterday however. She is maintaining O2 saturations in the 90s on 3 L/min per nasal cannula. She is utilizing CPAP at night. She remains on bronchodilators and steroids. Continued on empiric antibiotics in the form of doxycycline. Remains on diuretics. Anticoagulated with Eliquis. Chest x-ray revealed no acute process. White count 21.1. Hemoglobin 12.5. Sodium 138. Potassium 5.1. Bicarb 33. BUN 27. Creatinine 0.7. Glucose 139. The patient is seen today January 10, 2024 in follow-up on the regular medical floor. He is currently sitting up in bed. Awake and alert in no acute distress. She is still not feeling much better. Still coughing and congestion. Still wheezing. She is maintaining O2 saturation in the mid 90s on 3 L/min per nasal cannula. Afebrile. Hemodynamically stable. Viral screen was negative. She remains on bronchodilators and steroids. Continued on empiric antibiotics in the form of doxycycline. Remains on diuretics. Anticoagulated with Eliquis. The patient is seen today January 11, 2024 in follow-up on the regular medical floor. She is currently resting comfortably in bed. Awake and alert in no acute distress. She is maintaining good O2 saturations in the 90s on 3 L/min per nasal cannula. She is afebrile. Hemodynamically stable. No new labs today. She remains on DuoNeb inhalations, Pulmicort inhalations and IV Solu-Me drol. Robitussin for cough. Eliquis on hold. The plan is for bronchoscopy with BAL today. Objective - Vital Signs Vital signs: Vital Signs Temp 97.8 F 01/11/24 14:18 Pulse 75 01/11/24 14:18 Resp 19 01/11/24 14:18 BP 130/78 01/11/24 14:18 Pulse Ox 93 L 01/11/24 14:18 FiO2 Intake & Output 01/10/24 01/11/24 01/11/24 18:59 06:59 18:59 Intake Total 540 100 100 Balance 540 100 100 Weight 94.5 kg Intake: IV 100 Intake, IV Titration 100 Amount Doxycycline 100 mg In 100 Sodium Chloride 0.9% 100 ml @ 100 mls/hr IVPB Q12HR@0000,1200 [facility] Rx#: [id number] Oral 540 Other: Voiding Method Toilet Toilet # Voids 2 - Exam GENERAL EXAM: Alert, pleasant 68-year-old female, on 3 L nasal cannula, in no acute distress. HEAD: Normocephalic and atraumatic EYES: Normal reaction of pupils, equal size. NOSE: Clear with pink turbinates. THROAT: No erythema or exudates. NECK: No masses, no JVD. CHEST: No chest wall deformity. LUNGS: Equal air entry with expiratory wheezes heard throughout, no conversational dyspnea. CVS: S1 and S2 normal with no audible murmur, regular rhythm. No extra heart sounds ABDOMEN: No hepatosplenomegaly, active bowel sounds, no guarding or rigidity. SPINE: No scoliosis or deformity SKIN: No rashes CENTRAL NERVOUS SYSTEM: No focal deficits, tone is normal in all 4 extremities. EXTREMITIES: There is no peripheral edema, clubbing, or cyanosis. Peripheral pulses are intact. - Labs CBC & Chem 7: 01/09/24 05:06 01/09/24 05:06 Assessment and Plan Assessment: Acute on chronic hypoxic respiratory failure secondary to an acute exacerbation of chronic obstructive pulmonary disease. Chest x-ray again shows no focal infiltrates or evidence of pneumonia. Plan is for bronchoscopy with BAL today Recent discharge on 12/30/2023 for the same Chronic hypoxic respiratory failure maintained on O2 between 2 and 3 L/min nasal cannula. Severe chronic obstructive pulmonary disease, with an FEV1 38% of predicted, maintained on a combination of Trelegy Ellipta, albuterol rescue inhaler, oral prednisone 5 mg daily, and is also oxygen dependent Chronic ongoing tobacco dependence History of pulmonary embolism, anticoagulated on Eliquis Obstructive sleep apnea, maintained on CPAP pressure of 10 cm of water along with O2 at 3 L Obesity, with a BMI of 41.4 kg/m, currently on Mounjaro History of diabetes mellitus type 2 Chronic back pain Plan: The patient was seen and evaluated Labs and medications reviewed Plan for bronchoscopy with BAL today Resume Eliquis post procedure Continue bronchodilators and steroids We will continue to follow I have personally seen and examined the patient, performed the documentation and the assessment and plan as written. Number of minutes spent on the visit: 10.
[2024-01-11 15:04] VITALS: BP 130/78; TEMP 97.8
--- NOTE | 2024-01-11 15:30 | P.DS ---
Providers Date of admission: 01/06/24 19:55 Expected date of discharge: 01/11/24 Attending physician: Devante Loja Consults: 01/06/24 19:53 Consult Physician Routine Consulting Provider: Sneha Hall Consult Reason/Comments: hypoxia Do you want consulting provider notified?: Yes Primary care physician: Devante Loja Hospital Course: Final diagnosis Acute on chronic COPD exacerbation Acute on chronic hypoxic respiratory failure, secondary to the above, wears between 2 and 3 L nasal cannula O2 at home; currently on 3 L nasal cannula Ongoing nicotine dependence History of PE anticoagulated on Eliquis Obstructive sleep apnea wears CPAP Diabetes mellitus II Morbid obesity, BMI 41, on Mounjaro Gastroesophageal reflux disease Hypertension Status post bronchoscopy with BAL, right middle lobe abnormality with biopsies obtained. Further follow-up outpatient with pulmonary recommended. Hospital course:This is a 68-year-old female admitted with acute COPD exacerbation, recently discharged on 12/30/2023 for the same. Reports after completing her steroids, developed reoccurrence of symptoms. Maintained on nebulized bronchodilators, steroids and doxycycline. Had been declining her Pulmicort treatment as she stated it caused her to have nausea. Reinforced importance of Pulmicort and that she does have Zofran in place for nausea. Uses her CPAP at night. Currently maintaining O2 sats of 97% on 3 L, afebrile. Currently with cough and expiratory wheezing. 01/11/2024 congested, reports rough night with nonproductive cough. Maintaining O2 sats in the high 90s on 3 L nasal cannula. N.P.O., scheduled for bronchoscopy with BAL. Afebrile, Status post bronchoscopy with BAL reporting moderate erythema and hyperemia of the airways with thick secretions noted throughout. Abnormal area at the entrance of the right middle lobe reported, abscess sent, BAL was sent to the lab for analysis. Patient's insurance denying inpatient admission-discussed with pulmonary; patient has been cleared for discharge on steroid taper as per pulmonary with further follow-up outpatient regarding right middle lobe abnormality. Patient will be discharged home today in a stable condition with guarded prognosis. The impression and plan of care has been dictated as directed. : I performed a history and examination of this patient, discussed the same with the dictator. I agree with the dictator's note ,documented as a scribe. Any additional findings or plans will be noted. Patient Condition at Discharge: Stable Plan - Discharge Summary New Discharge Prescriptions: New Pantoprazole [Protonix] 40 mg PO AC-BRKFST #30 tab predniSONE 10 mg PO DIRECTED #30 tab guaiFENesin-DM 100-10MG/5ML [Robitussin DM] 10 ml PO Q6HR PRN ml PRN Reason: Cough Continue Albuterol Inhaler [Ventolin Hfa Inhaler] 2 puff INHALATION RT-QID PRN #0 puff PRN Reason: Shortness Of Breath Or Wheezing Citalopram Hydrobromide [CeleXA] 20 mg PO DAILY #30 tab Metoprolol Succinate (ER) [Toprol XL] 50 mg PO DAILY Furosemide [Lasix] 20 mg PO BID Celecoxib [CeleBREX] 100 mg PO DAILY Tirzepatide [Mounjaro] 2.5 mg SQ MO Ipratropium-Albuterol Nebulize [Duoneb 0.5 mg-3 mg/3 ml Soln] 3 ml INHALATION RT-QID PRN PRN Reason: Shortness Of Breath Terbinafine [LamISIL] 250 mg PO DAILY Apixaban [Eliquis] 5 mg PO BID Cyanocobalamin [Vitamin B-12] 500 mcg PO DAILY Cholecalciferol [Vitamin D3 (25 Mcg = 1000 Iu)] 25 mcg PO DAILY Artificial Tears-Hypromellose [Artificial Tear Drops] 1 drop BOTH EYES TID PRN PRN Reason: Dry Eye(S) predniSONE See Taper PO DIRECTED Changed predniSONE 5 mg PO DIRECTED #0 Discharge Medication List Albuterol Inhaler [Ventolin Hfa Inhaler] 2 puff INHALATION RT-QID PRN #0 puff 10/01/16 [Rx] Citalopram Hydrobromide [CeleXA] 20 mg PO DAILY #30 tab 10/01/16 [Rx] Apixaban [Eliquis] 5 mg PO BID 03/11/23 [History] Celecoxib [CeleBREX] 100 mg PO DAILY 03/11/23 [History] Furosemide [Lasix] 20 mg PO BID 03/11/23 [History] Metoprolol Succinate (ER) [Toprol XL] 50 mg PO DAILY 03/11/23 [History] Cholecalciferol [Vitamin D3 (25 Mcg = 1000 Iu)] 25 mcg PO DAILY 12/27/23 [History] Cyanocobalamin [Vitamin B-12] 500 mcg PO DAILY 12/27/23 [History] Ipratropium-Albuterol Nebulize [Duoneb 0.5 mg-3 mg/3 ml Soln] 3 ml INHALATION RT-QID PRN 12/27/23 [History] Terbinafine [LamISIL] 250 mg PO DAILY 12/27/23 [History] Tirzepatide [Mounjaro] 2.5 mg SQ MO 12/27/23 [History] Artificial Tears-Hypromellose [Artificial Tear Drops] 1 drop BOTH EYES TID PRN 01/06/24 [History] predniSONE See Taper PO DIRECTED 01/06/24 [History] Pantoprazole [Protonix] 40 mg PO AC-BRKFST #30 tab 01/11/24 [Rx] guaiFENesin-DM 100-10MG/5ML [Robitussin DM] 10 ml PO Q6HR PRN ml 01/11/24 [Rx] predniSONE 5 mg PO DIRECTED #0 01/11/24 [Rx] predniSONE 10 mg PO DIRECTED #30 tab 01/11/24 [Rx] Follow up Appointment(s)/Referral(s): Devante Loja DO [Primary Care Provider] - 1-2 days Sneha Hall MD [STAFF PHYSICIAN] - 1 Week
[2024-01-11 15:47] VITALS: PULSE 74
--- NOTE | 2024-01-11 20:17 | PCN ---
PROCEDURE NOTE PROCEDURE PERFORMED: Bronchoscopy; airway examination; therapeutic lavage; bronchoalveolar lavage, right middle lobe, right lower lobe; brushes, right middle lobe; endobronchial biopsies, right middle lobe. PREOPERATIVE DIAGNOSES: 1. Chronic obstructive pulmonary disease exacerbation. 2. Retained secretions. 3. Lesion, right middle lobe. POSTOPERATIVE DIAGNOSES: 1. Chronic obstructive pulmonary disease exacerbation. 2. Retained secretions. 3. Lesion, right middle lobe. PATIENT CARE COORDINATOR: Dr. Garcia. FIRST HOSPITAL LIAISON: Dr. Anai Diaz. ANESTHESIA PROVIDED: General anesthesia. There was informed consent and universal timeout. The patient's procedure took place in room #1 [facility]. DESCRIPTION OF PROCEDURE: After the patient was adequately sedated and being fully monitored, the bronchoscope was inserted through the right nostril. It passed through the right nasopharynx into the oropharynx. The hypopharynx was identified. The hypopharyngeal structures including anterior commissure; true cords; false cords; arytenoids; piriform sinuses, right and left; vallecula; epiglottis; all appeared relatively normal, although there were secretions in the hypopharynx that were suctioned. The glottic opening was topicalized. The bronchoscope was pushed through the glottic opening into the trachea. The trachea had retained secretions as well, that were purulent looking. There was no lesion within the trachea itself. Tracheal gabino was sharp. The right and left mainstem were topicalized. The right upper lobe and its 3 segments, the right lower lobe and its 5 segments, the left upper lobe proper and its 2 segments, and the lingula and its 2 segments and left lower lobe and its 4 segments all had relatively normal appearance. Therefore, mild to moderate bronchitis, mucosal friability, and thick secretions noted throughout. There was no dominant mass or tumor. Interestingly, there was an abnormality noted at the entrance of the right middle lobe. This area would eventually be biopsied. It was difficult to enter into the right middle lobe. Next, we did brushes of this lesion in the area that entered into the right middle lobe. Subsequent to that, we did multiple endobronchial biopsies of this lesion. Finally, we did a pooled cytology from the right middle lobe and right lower lobe. We did this because we could not enter into the right middle lobe. The patient tolerated the procedure well. There was no significant bleeding, and the bronchoscope was withdrawn. The patient will be recovered. MMODL / IJN: [id number] /
[2024-01-11] MEDS ORDERED: APIXABAN 5 MG TAB PO SCH (21:00)
[2024-01-14 06:17] LABS: Appearance,BF Bloody (Clear); RBC, Body Fluid 1710000 /UL (0-2000)
[2024-01-14 10:13] LABS: Nucleated Cells, Body Fluid 900 /UL
== END 2024-01-11 16:26 | disposition home or self-care (01) | DRG 190 ==
LOC: EC 17:25 → 4SSUR 19:55
PROVIDERS: ADMIT Family Medicine; ATTEND Family Medicine
PROC: 0BD58ZX Extraction of Right Middle Lobe Bronchus, Via Natural or Artificial Opening Endoscopic, Diagnostic (ICD-10-PCS; principal; 2024-01-11 12:30)
PROC: 0B9F8ZX Drainage of Right Lower Lung Lobe, Via Natural or Artificial Opening Endoscopic, Diagnostic (ICD-10-PCS; principal; 2024-01-11 12:30)
PROC: 0B9D8ZX Drainage of Right Middle Lung Lobe, Via Natural or Artificial Opening Endoscopic, Diagnostic (ICD-10-PCS; principal; 2024-01-11 12:30)
DX: J44.1 Chronic obstructive pulmonary disease with (acute) exacerbation (principal); J96.21 Acute and chronic respiratory failure with hypoxia; Z68.41 Body mass index [BMI] 40.0-44.9, adult; F41.9 Anxiety disorder, unspecified; K21.9 Gastro-esophageal reflux disease without esophagitis; E11.9 Type 2 diabetes mellitus without complications; E53.8 Deficiency of other specified B group vitamins; E66.01 Morbid (severe) obesity due to excess calories; F32.A Depression, unspecified; I11.0 Hypertensive heart disease with heart failure; I50.9 Heart failure, unspecified; M19.90 Unspecified osteoarthritis, unspecified site; F17.200 Nicotine dependence, unspecified, uncomplicated; R91.1 Solitary pulmonary nodule; M54.9 Dorsalgia, unspecified; E55.9 Vitamin D deficiency, unspecified; G47.33 Obstructive sleep apnea (adult) (pediatric); G89.29 Other chronic pain; I25.10 Atherosclerotic heart disease of native coronary artery without angina pectoris; Z96.653 Presence of artificial knee joint, bilateral; Z99.81 Dependence on supplemental oxygen; Z86.711 Personal history of pulmonary embolism; Z79.899 Other long term (current) drug therapy; Z79.52 Long term (current) use of systemic steroids; Z79.1 Long term (current) use of non-steroidal anti-inflammatories (NSAID); Z79.01 Long term (current) use of anticoagulants; Z87.440 Personal history of urinary (tract) infections; Z88.5 Allergy status to narcotic agent; Z79.51 Long term (current) use of inhaled steroids
CPT/HCPCS: 31623; 31624; 31625; 36415; 71045; 80048; 80053; 83605; 83735; 83880; 84100; 84484; 85025; 85610; 85730; 87070; 87102; 87116; 87205; 87206; 87496; 87498; 87502; 87529; 87634; 87635; 87636; 87798; 88104; 88108; 88305; 89050; 93005; 94640; 94760; 99291